=== PATIENT | male | born 1935 | race Caucasian/White ===

== ENCOUNTER → 2016-02-12 | Outpatient (CLI) | payer BC ==
[~2016-02-12] MED LIST: ALFU10TA30 PO; APOA20CA PO; ASCO500T16 PO; ASPEC81 PO; ASPI81TA28 PO; ATOR-24 PO; CRAN1CAP14 PO; DICL1GEL28 TOP; EPP3/2 IM; FENO145T26 PO; FINA5TAB PO; FISHOIL PO; LPT40 PO; LSN25 PO; NTRGSL/4 UT; NTRSLP4 SL; OMG3 PO; SACC250C11 PO; URC10 PO
== END | disposition home or self-care (01) ==
LOC: C.LAB 13:47
PROVIDERS: ATTEND Urology
DX: N40.1 Benign prostatic hyperplasia with lower urinary tract symptoms (principal); Z87.442 Personal history of urinary calculi

== ENCOUNTER → 2016-04-22 | Outpatient (CLI) | payer BC ==
[2016-04-22 16:51] LABS: BASO % 0.6 %; BASO ABS # 0.04 K/uL (0-0.2); COMPLETE YES; HEMATOCRIT 42.7 % (42-52); IG% 0.4 %; LYMPH % 24.6 %; LYMPH ABS # 1.65 K/uL (1.2-3.4); MEAN CELL VOLUME 87.3 fL (80-100); MEAN CORPUSCULAR HGB CONC 33.3 g/dl (32-36); MEAN PLATELET VOLUME 10.3 fL (7.4-10.4); MONO % 12.4 %; PLATELET COUNT 231 K/uL (130-400); RED BLOOD COUNT 4.89 M/uL (4.7-6.1); WHITE BLOOD COUNT 6.71 K/uL (4.8-10.8)
[2016-04-22 16:57] LABS: ALT/SGPT 23 U/L (12-78); AST/SGOT 15 U/L (15-37); BLOOD UREA NITROGEN 20 mg/dl (7-18); BUN/CREATININE RATIO 15.5 (10-20); CALCIUM 8.9 mg/dl (8.5-10.1); CARBON DIOXIDE 25 mmol/L (21-32); CHLORIDE 113 mmol/L (98-107); GLUCOSE 100 mg/dl (70-99); POTASSIUM 4.5 mmol/L (3.5-5.1); SODIUM 145 mmol/L (136-145)
[2016-04-22 17:00] LABS: ALKALINE PHOSPHATASE 63 U/L (45-117); CHOLESTEROL 148 mg/dl (0-200); CHOLESTEROL/HDL RATIO 3.4; HDL CHOLESTEROL 44 mg/dl; LDL CHOLESTEROL CALCULATED 76 mg/dl; TRIGLYCERIDES 139 mg/dl (0-150); VERY LOW DENSITY LIPOPROT CALC 28 mg/dl
[2016-04-23 05:58] LABS: ESTIMATED AVERAGE GLUCOSE 123 mg/dl; HA1C FLAG Normal (Normal)
== END | disposition home or self-care (01) ==
LOC: C.LABBFT 11:18
PROVIDERS: ATTEND Internal Medicine
DX: D64.9 Anemia, unspecified (principal); I25.10 Atherosclerotic heart disease of native coronary artery without angina pectoris; R73.01 Impaired fasting glucose

== ENCOUNTER 2016-05-09 19:25 | Observation (INO) | payer BC ==
[~2016-05-09] VITALS: Ht 177.8 cm; Wt 74.4 kg
[~2016-05-09 19:25] MED LIST changes: +ALFU10TA2 PO; -ALFU10TA30 PO; -APOA20CA PO; -ASPI81TA28 PO; -ATOR-24 PO; -CRAN1CAP14 PO; -EPP3/2 IM; -NTRGSL/4 UT; -OMG3 PO; -SACC250C11 PO; -URC10 PO
[2016-05-09] MEDS ORDERED: SODIUM CHLORIDE 0.9% 1000ML 1,000 ML IV STA (19:28)
[2016-05-09] MEDS ORDERED: NITROGLYCERIN OINT 2% 1GM PACKET EXT ONE (19:45)
[2016-05-09 19:53] LABS: BASO % 0.6 %; BASO ABS # 0.04 K/uL (0-0.2); COMPLETE YES; EOS % 3.8 %; IG% 0.3 %; LYMPH % 27.8 %; LYMPH ABS # 1.77 K/uL (1.2-3.4); MEAN CELL VOLUME 89.2 fL (80-100); MEAN CORPUSCULAR HEMOGLOBIN 29.8 pg (25-34); MEAN CORPUSCULAR HGB CONC 33.4 g/dl (32-36); MEAN PLATELET VOLUME 10.2 fL (7.4-10.4); MONO % 11.9 %; NEUT % 55.6 %; PLATELET COUNT 213 K/uL (130-400); RED BLOOD COUNT 4.26 M/uL (4.7-6.1); WHITE BLOOD COUNT 6.36 K/uL (4.8-10.8)
--- NOTE | 2016-05-09 19:57 | DIAGNOSTIC IMAGING REPORT ---
CHEST ONE VIEW PORTABLE CLINICAL HISTORY: Weakness. Chest pain. COMPARISON STUDY: Chest radiograph November 18, 2015. FINDINGS: There are are median sternotomy wires. There is no pneumothorax or pleural effusion. Mild cardiomegaly is unchanged. There is mild bibasilar opacity. There is no lobar consolidation. There is pulmonary vascular congestion with possible mild pulmonary edema. IMPRESSION: 1. Pulmonary vascular congestion with possible mild pulmonary edema. 2. Bibasilar opacities which favor atelectasis. Electronically signed by: Fred Vazquez M.D. 05/09/2016 7:56 PM Dictated Date/Time: 05/09/2016 7:55 PM
[2016-05-09 20:03] LABS: PROTHROMBIN TIME (PATIENT) 11.2 SECONDS (9.0-12.0)
[2016-05-09 20:21] LABS: ALT/SGPT 20 U/L (12-78); BLOOD UREA NITROGEN 18 mg/dl (7-18); CALCIUM 8.4 mg/dl (8.5-10.1); CARBON DIOXIDE 23 mmol/L (21-32); CHLORIDE 110 mmol/L (98-107); GLUCOSE 96 mg/dl (70-99); MAGNESIUM 2.1 mg/dl (1.8-2.4); POTASSIUM 4.2 mmol/L (3.5-5.1); SODIUM 143 mmol/L (136-145)
[2016-05-09 20:31] LABS: ALKALINE PHOSPHATASE 62 U/L (45-117); AST/SGOT 18 U/L (15-37); CKMB/CK RATIO 1.8 (0-3.0)
[2016-05-09 21:01] LABS: URINE APPEARANCE CLOUDY (CLEAR); URINE BILIRUBIN NEG (NEG); URINE COLOR YELLOW; URINE NITRITE NEG (NEG); URINE PH 7.5 (4.5-7.5); URINE SPECIFIC GRAVITY 1.018 (1.000-1.030); UROBILINOGEN NEG (NEG)
[2016-05-09 21:02] LABS: MANUAL MICROSCOPIC REQUIRED? NO; REVIEW REQ? NO
[2016-05-09] MEDS ORDERED: OMG3 PO (21:11)
[2016-05-09] MEDS ORDERED: URC10 PO (21:16)
[2016-05-09] MEDS ORDERED: ASPI81TA28 PO (21:16)
[2016-05-09] MEDS ORDERED: CRAN1CAP14 PO (21:16)
[2016-05-09] MEDS ORDERED: ATOR-24 PO (21:16)
[2016-05-09] MEDS ORDERED: NTRGSL/4 UT (21:16)
[2016-05-09] MEDS ORDERED: EPP3/2 IM (21:16)
[2016-05-09] MEDS ORDERED: LSN25 PO (21:16)
[2016-05-09] MEDS ORDERED: ACETAMINOPHEN 325 MG TAB PO PRN (23:00)
[2016-05-09] MEDS ORDERED: NITROGLYCERIN 0.4 MG SL PER TAB CHARGE SL PRN (23:00)
[2016-05-09] MEDS ORDERED: ZOLPIDEM TARTRATE 5 MG TAB PO PRN (23:00)
[2016-05-09] MEDS ORDERED: ONDANSETRON INJ 2 MG/ML 2 ML VIAL IV PRN (23:00)
[2016-05-09] MEDS ORDERED: IV FLUIDS COMPLETED PRN (23:15)
[2016-05-09 23:40] VITALS: BP 128/66; PULSE 60; TEMP 36.8; O2SAT 96; Ht 177.8 cm; Wt 74.4 kg
--- NOTE | 2016-05-10 00:15 | EMERGENCY ROOM VISIT NOTE ---
History Report prepared by Rosemarie: Sonia Cadena Under the Supervision of: Dr. Martin Hinds M.D. First contact with patient: 19:27 Chief Complaint: CHEST PAIN Stated Complaint: CHEST PAIN History of Present Illness The patient is a 80 year old male who presents to the Emergency Room with complaints of resolved chest pain that started earlier today. The pain was relieved with nitro and only lasted a couple minutes. He then developed nausea. The patient decided to go into the [facility] clinic to be evaluated because he has a history of a bypass. At the clinic they did a 12 lead EKG, but did not have any prior ones for comparison and possible ischemic changes were present, so they recommended that he come into the ED for further evaluation. Pt denies LOC, headache, fevers, chills, diaphoresis, visual changes, neck pain , breathing difficulties, vomiting, abdominal pain, back pain, melena, hematochezia, urinary symptoms, numbness, weakness, lymphadenopathy, rash, or other complaints. Source of History: patient Onset: earlier today Position: chest Timing: resolved Modifying Factors (Relieving): other (nitro) Associated Symptoms: + nausea Review of Systems See HPI for pertinent positives and negatives. A total of ten systems were reviewed and were otherwise negative. Past Medical & Surgical Medical Problems: (1) Myocardial infarction (2) NSTEMI (non-ST elevated myocardial infarction) (3) NSTEMI, initial episode of care Surgical Problems: (1) S/P CABG (coronary artery bypass graft) Family History No pertinent family history Social History Smoking Status: Never Smoker Alcohol Use: none Drug Use: none Marital Status: Housing Status: lives with significant other Occupation Status: retired Current/Historical Medications Scheduled Alfuzosin Hcl (Uroxatral), 10 MG PO QAM Ascorbic Acid (Ascorbic Acid), 500 MG PO QAM Aspirin (Aspirin Ec), 81 MG PO QAM Atorvastatin (Lipitor), 40 MG PO QAM Cranberry-Vitamin C-Vitamin E (Cranberry Plus Vitamin C), 2 CAP PO QAM Fenofibrate (Tricor), 145 MG PO QAM Finasteride (Proscar), 5 MG PO QAM Fish Oil (Fish Oil), 1 GM PO QAM Lisinopril (Lisinopril), 2.5 MG PO QAM Potassium Citrate (Potassium Citrate), 10 MEQ PO TID Scheduled PRN Epinephrine (Epipen), 0.3 MG IM UD PRN for ALLERGIC REACTION Nitroglycerin (Nitrostat), 0.4 MG UT PRN PRN for Chest Pain Allergies Coded Allergies: BEE STING (Verified Allergy, Severe, ANAPHYLAXIS, 05/09/16) HAS EPIPEN FOR IF NEEDED. Physical Exam Vital Signs Date Time Temp Pulse Resp B/P Pulse Ox O2 Delivery O2 Flow Rate FiO2 05/09/16 23:25 49 14 136/72 96 05/09/16 23:07 52 05/09/16 21:45 143/80 05/09/16 21:43 58 20 94 05/09/16 21:30 134/82 05/09/16 21:15 151/88 05/09/16 21:13 56 17 96 05/09/16 21:00 148/77 05/09/16 20:38 142/82 05/09/16 20:25 55 16 94 05/09/16 20:16 121/91 05/09/16 20:02 157/71 05/09/16 19:57 151/84 05/09/16 19:55 56 21 97 05/09/16 19:37 55 05/09/16 19:32 139/78 05/09/16 19:29 96 Room Air 05/09/16 19:29 36.4 56 14 139/78 96 Room Air 05/09/16 19:29 96 Room Air 05/09/16 19:25 96 Room Air Physical Exam GENERAL: Awake, alert, well-appearing, in no distress HENT: Normocephalic, atraumatic. Oropharynx unremarkable. EYES: Normal conjunctiva. Sclera non-icteric. NECK: Supple. No nuchal rigidity. FROM. No JVD. RESPIRATORY: Clear to auscultation. CARDIAC: Regular rate, normal rhythm. Extremities warm and well perfused. Pulses equal. ABDOMEN: Soft, non-distended. No tenderness to palpation. No rebound or guarding. No masses. RECTAL: Deferred. MUSCULOSKELETAL: Chest examination reveals no tenderness. The back is symmetrical on inspection without obvious abnormality. There is no CVA tenderness to palpation. No joint edema. LOWER EXTREMITIES: Calves are equal size bilaterally and non-tender. 1+ edema. No discoloration. NEURO: Normal sensorium. No sensory or motor deficits noted. SKIN: No rash or jaundice noted. Medical Decision & Procedures ER Provider Diagnostic Interpretation: X-ray: Per my interpretation, radiologist review. CHEST ONE VIEW PORTABLE IMPRESSION: 1. Pulmonary vascular congestion with possible mild pulmonary edema. 2. Bibasilar opacities which favor atelectasis. Electronically signed by: Fred Vazquez M.D. 05/09/2016 7:56 PM Dictated Date/Time: 05/09/2016 7:55 PM Laboratory Results 05/09/16 19:03 Red Blood Count 4.26, Mean Corpuscular Volume 89.2, Mean Corpuscular Hemoglobin 29.8, Mean Corpuscular Hemoglobin Concent 33.4, Mean Platelet Volume 10.2, Neutrophils (%) (Auto) 55.6, Lymphocytes (%) (Auto) 27.8, Monocytes (%) (Auto) 11.9, Eosinophils (%) (Auto) 3.8, Basophils (%) (Auto) 0.6, Neutrophils # (Auto ) 3.53, Lymphocytes # (Auto) 1.77, Monocytes # (Auto) 0.76, Eosinophils # (Auto ) 0.24, Basophils # (Auto) 0.04 05/09/16 19:03 Test 05/09/16 19:03 05/09/16 20:40 05/09/16 23:18 White Blood Count 6.36 K/uL (4.8-10.8) Red Blood Count 4.26 M/uL (4.7-6.1) Hemoglobin 12.7 g/dL (14.0-18.0) Hematocrit 38.0 % (42-52) Mean Corpuscular Volume 89.2 fL (80-100) Mean Corpuscular Hemoglobin 29.8 pg (25-34) Mean Corpuscular Hemoglobin Concent 33.4 g/dl (32-36) Platelet Count 213 K/uL (130-400) Mean Platelet Volume 10.2 fL (7.4-10.4) Neutrophils (%) (Auto) 55.6 % Lymphocytes (%) (Auto) 27.8 % Monocytes (%) (Auto) 11.9 % Eosinophils (%) (Auto) 3.8 % Basophils (%) (Auto) 0.6 % Neutrophils # (Auto) 3.53 K/uL (1.4-6.5) Lymphocytes # (Auto) 1.77 K/uL (1.2-3.4) Monocytes # (Auto) 0.76 K/uL (0.11-0.59) Eosinophils # (Auto) 0.24 K/uL (0-0.5) Basophils # (Auto) 0.04 K/uL (0-0.2) RDW Standard Deviation 53.5 fL (36.4-46.3) RDW Coefficient of Variation 16.3 % (11.5-14.5) Immature Granulocyte % (Auto) 0.3 % Immature Granulocyte # (Auto) 0.02 K/uL (0.00-0.02) Prothrombin Time 11.2 SECONDS (9.0-12.0) Prothromb Time International Ratio 1.0 (0.9-1.1) Activated Partial Thromboplast Time 25.2 SECONDS (21.0-31.0) Partial Thromboplastin Ratio 1.0 Anion Gap 10.0 mmol/L (3-11) Est Creatinine Clear Calc Drug Dose 52.3 ml/min Estimated GFR () 65.8 Estimated GFR (Non- 56.8 BUN/Creatinine Ratio 15.0 (10-20) Calcium Level 8.4 mg/dl (8.5-10.1) Magnesium Level 2.1 mg/dl (1.8-2.4) Total Bilirubin 0.3 mg/dl (0.2-1) Direct Bilirubin < 0.1 mg/dl (0-0.2) Aspartate Amino Transf (AST/SGOT) 18 U/L (15-37) Alanine Aminotransferase (ALT/SGPT) 20 U/L (12-78) Alkaline Phosphatase 62 U/L (45-117) Total Protein 6.8 gm/dl (6.4-8.2) Albumin 3.3 gm/dl (3.4-5.0) Thyroid Stimulating Hormone (TSH) 2.680 uIu/ml (0.300-4.500) Urine Color YELLOW Urine Appearance CLOUDY (CLEAR) Urine pH 7.5 (4.5-7.5) Urine Specific [place] 1.018 (1.000-1.030) Urine Protein NEG (NEG) Urine Glucose (UA) NEG (NEG) Urine Ketones NEG (NEG) Urine Occult Blood NEG (NEG) Urine Nitrite NEG (NEG) Urine Bilirubin NEG (NEG) Urine Urobilinogen NEG (NEG) Urine Leukocyte Esterase NEG (NEG) Urine WBC (Auto) 0 /hpf (0-5) Urine RBC (Auto) 0-4 /hpf (0-4) Urine Hyaline Casts (Auto) 0 /lpf (0-5) Urine Epithelial Cells (Auto) 5-10 /lpf (0-5) Urine Bacteria (Auto) NEG (NEG) Total Creatine Kinase 81 U/L (39-308) Creatine Kinase MB 1.6 ng/ml (0.5-3.6) Creatine Kinase MB Ratio 2.0 (0-3.0) Troponin I < 0.015 ng/ml (0-0.045) Laboratory results reviewed by me Medications Administered Medications (Trade) Dose Ordered Sig/Fátima Route Start Time Stop Time Status Last Admin Dose Admin Sodium Chloride (Nss 1000ml) 1,000 ml @ 125 mls/hr Q8H STAT IV 05/09/16 19:28 05/10/16 03:27 05/09/16 19:59 125 MLS/HR Nitroglycerin (Nitroglycerin 2% Oint) 0.5 inch NOW ONCE EXT 05/09/16 19:45 05/09/16 19:46 DC 05/09/16 19:58 0.5 INCH ECG Indication: chest pain Rate (beats per minute): 55 Rhythm: sinus bradycardia Findings: T-wave inversion (Anterior, Lateral), other (left anterior fasicular block) Comparison ECG Date: 11/19/2015 Change: T-wave inversions less pronounced When compared to 11/24/2016 ST segments have improved anteriorly, anterolateral T-wave inversions are new ED Course 8: Ordered Sodium Chloride 1000 ml @ 125 mls/hr IV 1932: The patient was evaluated in room B6. A complete history and physical exam was performed. 1944: Ordered Nitroglycerin 0.5 inch EXT 2148: Upon reexamination, the patient was resting comfortably. I discussed the test results and treatment plan with him. The patient will be evaluated for further management. 2211: Discussed the patient's case [place] Dr[place] [facility] [place] The patient will be evaluated for further treatment and disposition. Medical Decision Triage Nursing notes reviewed. The patient's presentation and history were concerning for chest pain. Etiologies such as cardiac ischemia, aortic dissection, pulmonary embolism, pneumonia, pneumothorax, musculoskeletal, infections, gastrointestinal, as well as others were entertained. The patient was evaluated. Clinically he was doing well. He was given gentle saline hydration. I did place was applied. On reassessment he had no additional pain. His CBC, chemistry panel, LFTs, magnesium, troponin, and TSH were unremarkable. Chest x-ray was unremarkable except for some atelectasis and maybe some trace edema. The patient does not have any shortness of breath. Given his symptoms further evaluation and management will be necessary in the hospital. He has a high risk for cardiac chest pain. Consultation was made with internal medicine the patient was evaluated in the Emergency Room for further treatment. The chart was completed utilizing [employer] Speech voice recognition software. Grammatical errors, random word insertions, pronoun errors, and incomplete sentences are an occasional consequence of this system due to software limitations, ambient noise, and hardware issues. Any formal questions or concerns about the content, text, or information contained within the body of this dictation should be directly addressed to the physician for clarification. Consults Time Called: -- Consulting Physician: Dr. Jordy SWENSON Returned Call: [id number] Discussed the patient's case with Dr. Jordy SWENSON. The patient will be evaluated for further treatment and disposition. Impression Primary Impression: Left sided chest pain Scribe Attestation The scribe's documentation has been prepared under my direction and personally reviewed by me in its entirety. I confirm that the note above accurately reflects all work, treatment, procedures, and medical decision making performed by me. Departure Information Dispostion Being Evaluated By Hospitalist Referrals Henrik Banks M.D. (PCP) Patient Instructions My [facility]
[2016-05-10 04:00] VITALS: BP 99/57; PULSE 59; TEMP 36.4; O2SAT 94
--- NOTE | 2016-05-10 04:54 | History and Physical ---
History & Physical Date & Time of Service: May 10, 2016 at 04:42. Date of physical exam was 05/09/2016. Chief Complaint: Chest Pain, S/P Cabg Primary Care Physician: Henrik Banks M.D. History of Present Illness Source: patient The patient is an 80-year-old male who presents to the emergency department with complaint of episode of sharp chest pain with duration of a couple minutes , that was relieved by nitroglycerin earlier in the day prior to arrival. He then developed nausea, and decided to go to the [facility]. He had an EKG performed at that clinic which questioned the possibility of ischemic changes, and was advised to the emergency department for further evaluation. Patient had been diagnosed with a non-STEMI in November 2015 and has undergone a CABG since that time. These are his first symptoms that he's had since his surgery. Past Medical/Surgical History Medical Problems: (1) Myocardial infarction Status: Resolved (2) NSTEMI (non-ST elevated myocardial infarction) Status: Resolved Family History No pertinent family history Social History Smoking Status: Never Smoker Smokeless Tobacco Use: No Alcohol Use: none Drug Use: none Marital Status: Housing status: lives with family Occupational Status: retired Multi-Drug Resistant Organisms History of MDRO: No Allergies Coded Allergies: BEE STING (Verified Allergy, Severe, ANAPHYLAXIS, 05/09/16) HAS EPIPEN FOR IF NEEDED. Home Medications Scheduled Alfuzosin Hcl (Uroxatral), 10 MG PO QAM Ascorbic Acid (Ascorbic Acid), 500 MG PO QAM Aspirin (Aspirin Ec), 81 MG PO QAM Atorvastatin (Lipitor), 40 MG PO QAM Cranberry-Vitamin C-Vitamin E (Cranberry Plus Vitamin C), 2 CAP PO QAM Fenofibrate (Tricor), 145 MG PO QAM Finasteride (Proscar), 5 MG PO QAM Fish Oil (Fish Oil), 1 GM PO QAM Lisinopril (Lisinopril), 2.5 MG PO QAM Potassium Citrate (Potassium Citrate), 10 MEQ PO TID Scheduled PRN Epinephrine (Epipen), 0.3 MG IM UD PRN for ALLERGIC REACTION Nitroglycerin (Nitrostat), 0.4 MG UT PRN PRN for Chest Pain Review of Systems The patient denies palpitations, cough, lower extremity swelling, vision change, hearing change, sore throat, fevers, chills, sweats, weight change, fatigue, vomiting, abdominal pain, pelvic pain, blood in urine or stool, dysuria , urinary frequency or urgency, lightheadedness, dizziness, headache, memory loss, rash, abnormal bruising or bleeding, imbalance, focal or generalized weakness, numbness or tingling in arms or legs, arthralgias or myalgias, back or neck pain, night sweats, or allergy symptoms. The review of systems is otherwise negative other than for that already noted above, and at least 10 systems have been reviewed. Physical Exam Vital Signs Date Time Temp Pulse Resp B/P Pulse Ox O2 Delivery O2 Flow Rate FiO2 05/10/16 04:00 36.4 59 18 99/57 94 Room Air 05/09/16 23:40 36.8 60 18 128/66 96 Room Air 05/09/16 23:25 49 14 136/72 96 05/09/16 23:07 52 05/09/16 21:45 143/80 05/09/16 21:43 58 20 94 05/09/16 21:30 134/82 05/09/16 21:15 151/88 05/09/16 21:13 56 17 96 05/09/16 21:00 148/77 05/09/16 20:38 142/82 05/09/16 20:25 55 16 94 05/09/16 20:16 121/91 05/09/16 20:02 157/71 05/09/16 19:57 151/84 05/09/16 19:55 56 21 97 05/09/16 19:37 55 05/09/16 19:32 139/78 05/09/16 19:29 96 Room Air 05/09/16 19:29 36.4 56 14 139/78 96 Room Air 05/09/16 19:29 96 Room Air 05/09/16 19:25 96 Room Air The patient is awake, well-developed and adequately nourished, alert and oriented 3, normocephalic and atraumatic, lying in bed and in no acute distress. HEENT--PERRL, EOMI, mucous membranes and oropharynx normal. Neck--supple, no JVD or bruits, thyroid normal, trachea midline, no adenopathy. Heart--normal S1 and S2, no extra beats, no murmurs, rubs or gallops. Lungs--clear bilaterally with good air movement, no respiratory distress, no accessory muscle use. Abdomen--normal bowel sounds and soft, nontender and nondistended, no hernias or masses, no organomegaly. Extremities--no cyanosis, clubbing or edema. There are good distal pulses b/l. Dermatologic--normal skin turgor, normal color, warm and dry, no abnormal lymph nodes, no rash. Neurologic--cranial nerves II through XII grossly intact, motor and sensory examination normal. Rheumatologic--normal range of motion, nontender, muscles and joints. Psychiatric--normal affect. Diagnostics Laboratory Results Results Past 24 Hours Test 05/09/16 19:03 05/09/16 20:40 05/09/16 23:18 Range/Units White Blood Count 6.36 4.8-10.8 K/uL Red Blood Count 4.26 4.7-6.1 M/uL Hemoglobin 12.7 14.0-18.0 g/dL Hematocrit 38.0 42-52 % Mean Corpuscular Volume 89.2 80-100 fL Mean Corpuscular Hemoglobin 29.8 25-34 pg Mean Corpuscular Hemoglobin Concent 33.4 32-36 g/dl Platelet Count 213 130-400 K/uL Mean Platelet Volume 10.2 7.4-10.4 fL Neutrophils (%) (Auto) 55.6 % Lymphocytes (%) (Auto) 27.8 % Monocytes (%) (Auto) 11.9 % Eosinophils (%) (Auto) 3.8 % Basophils (%) (Auto) 0.6 % Neutrophils # (Auto) 3.53 1.4-6.5 K/uL Lymphocytes # (Auto) 1.77 1.2-3.4 K/uL Monocytes # (Auto) 0.76 0.11-0.59 K/uL Eosinophils # (Auto) 0.24 0-0.5 K/uL Basophils # (Auto) 0.04 0-0.2 K/uL RDW Standard Deviation 53.5 36.4-46.3 fL RDW Coefficient of Variation 16.3 11.5-14.5 % Immature Granulocyte % (Auto) 0.3 % Immature Granulocyte # (Auto) 0.02 0.00-0.02 K/uL Prothrombin Time 11.2 9.0-12.0 SECONDS Prothromb Time International Ratio 1.0 0.9-1.1 Activated Partial Thromboplast Time 25.2 21.0-31.0 SECONDS Partial Thromboplastin Ratio 1.0 Sodium Level 143 136-145 mmol/L Potassium Level 4.2 3.5-5.1 mmol/L Chloride Level 110 98-107 mmol/L Carbon Dioxide Level 23 21-32 mmol/L Anion Gap 10.0 3-11 mmol/L Blood Urea Nitrogen 18 7-18 mg/dl Creatinine 1.20 0.60-1.40 mg/dl Est Creatinine Clear Calc Drug Dose 52.3 ml/min Estimated GFR () 65.8 Estimated GFR (Non- 56.8 BUN/Creatinine Ratio 15.0 10-20 Random Glucose 96 70-99 mg/dl Calcium Level 8.4 8.5-10.1 mg/dl Magnesium Level 2.1 1.8-2.4 mg/dl Total Bilirubin 0.3 0.2-1 mg/dl Direct Bilirubin < 0.1 0-0.2 mg/dl Aspartate Amino Transf (AST/SGOT) 18 15-37 U/L Alanine Aminotransferase (ALT/SGPT) 20 12-78 U/L Alkaline Phosphatase 62 45-117 U/L Total Creatine Kinase 97 81 39-308 U/L Creatine Kinase MB 1.7 1.6 0.5-3.6 ng/ml Creatine Kinase MB Ratio 1.8 2.0 0-3.0 Troponin I < 0.015 < 0.015 0-0.045 ng/ml Total Protein 6.8 6.4-8.2 gm/dl Albumin 3.3 3.4-5.0 gm/dl Thyroid Stimulating Hormone (TSH) 2.680 0.300-4.500 uIu/ml Urine Color YELLOW Urine Appearance CLOUDY CLEAR Urine pH 7.5 4.5-7.5 Urine Specific [place] 1.018 1.000-1.030 Urine Protein NEG NEG Urine Glucose (UA) NEG NEG Urine Ketones NEG NEG Urine Occult Blood NEG NEG Urine Nitrite NEG NEG Urine Bilirubin NEG NEG Urine Urobilinogen NEG NEG Urine Leukocyte Esterase NEG NEG Urine WBC (Auto) 0 0-5 /hpf Urine RBC (Auto) 0-4 0-4 /hpf Urine Hyaline Casts (Auto) 0 0-5 /lpf Urine Epithelial Cells (Auto) 5-10 0-5 /lpf Urine Bacteria (Auto) NEG NEG Diagnostic Radiology Patient Name: FLACO ROBBINS Unit Number: [id number] Dictated: 05/09/161954 Transcribed: 05/09/161954 JA Printed Date/Time: [~ rep prt dt]/[~ rep prt tm] [~ rep ct labl] - [~ rep ct ivnm] [facility] Radiology Department [place] [id number] Dictated: 05/09/161954 Transcribed: 05/09/161954 JA Printed Date/Time: [~ rep prt dt]/[~ rep prt tm] [~ rep ct labl] - [~ rep ct ivnm] [~ rep ct add3]] CHEST ONE VIEW PORTABLE CLINICAL HISTORY: Weakness. Chest pain. COMPARISON STUDY: Chest radiograph November 18, 2015. FINDINGS: There are are median sternotomy wires. There is no pneumothorax or pleural effusion. Mild cardiomegaly is unchanged. There is mild bibasilar opacity. There is no lobar consolidation. There is pulmonary vascular congestion with possible mild pulmonary edema. IMPRESSION: 1. Pulmonary vascular congestion with possible mild pulmonary edema. 2. Bibasilar opacities which favor atelectasis. Electronically signed by: Fred Vazquez M.D. 05/09/2016 7:56 PM Dictated Date/Time: 05/09/2016 7:55 PM The status of this report is Signed. Draft = Not yet reviewed or approved by Radiologist. Signed = Reviewed and approved by Radiologist. <AttendingPhy></AttendingPhy> <FamilyPhy>Henrik Banks M.D.</FamilyPhy> < PrimaryPhy>Henrik Banks M.D.</PrimaryPhy> <UnitNumber>[id number]</UnitNumber > <VisitNumber>[id number]</VisitNumber> <PatientName>FLACO ROBBINS</ PatientName> <DateOfBirth>1935</DateOfBirth> <Location>C.EDB</Location> < ServiceDate>05/09/16</ServiceDate> <MNE>ESINDI</MNE> <OrderingPhy>Martin Hinds MD</OrderingPhy> <OrderingPhyMNE>f rep ord dr tyson</OrderingPhyMNE> < DictatingPhyMNE>f rep dict dr tyson</DictatingPhyMNE> <CCListMNE>f rep ct henriettae</ CCListMNE> <AdmittingPhyMNE>f pt admit dr tyson</AdmittingPhyMNE> <AttendingPhyMNE >f pt attend dr tyson</AttendingPhyMNE> <ConsultingPhyMNE>f pt consult dr tyson</ConsultingPhyMNE> <FamilyPhyMNE>f pt fam dr tyson</FamilyPhyMNE> <OtherPhyMNE>f pt other dr tyson</OtherPhyMNE> < PrimaryPhyMNE>f pt prim care dr tyson</PrimaryPhyMNE> <ReferringPhyMNE>f pt referring dr tyson</ReferringPhyMNE> EKG EKG shows sinus bradycardia at 55 bpm, left axis deviation, possible old inferior wall NE, possible anterior NE, improved T-wave depressions compared to 11/19/2015 Impression Assessment and Plan CAD/hypertension/status post CABG/resolved episode of precordial chest pain with use of nitroglycerin--the patient will be admitted to the telemetry unit for serial cardiac enzymes, cardiac rhythm monitoring and a 2-D echocardiogram with Dopplers. Continue enteric-coated aspirin 81 mg by mouth every morning, lisinopril 2.5 mg by mouth every morning. We'll consult his senior sales assistant Dr. Ny. Hypercholesterolemia--continue atorvastatin 40 mg by mouth every morning, fenofibrate 145 mg by mouth every morning and fish oil 1 g by mouth every morning. BPH--continue Uroxatral 10 mg by mouth every morning and finasteride 5 mg by mouth every morning, and potassium citrate 10 mEq by mouth 3 times a day. Level of Care Telemetry Advanced Directives Existing Advance Directive: No Existing Living Will: No Existing Power of Cellar Packer: No Resuscitation Status FULL RESUSCITATION VTE Prophylaxis VTE Risk Assessment Done? Y/N: Yes Risk Level: Moderate Given or contraindicated: SCD's
[2016-05-10 07:15] LABS: BASO % 0.7 %; BASO ABS # 0.04 K/uL (0-0.2); COMPLETE YES; EOS % 4.1 %; HEMATOCRIT 36.6 % (42-52); IG% 0.3 %; LYMPH % 29.4 %; MEAN CELL VOLUME 88.6 fL (80-100); MEAN CORPUSCULAR HEMOGLOBIN 29.5 pg (25-34); MEAN CORPUSCULAR HGB CONC 33.3 g/dl (32-36); MEAN PLATELET VOLUME 9.7 fL (7.4-10.4); MONO % 9.8 %; NEUT % 55.7 %; PLATELET COUNT 189 K/uL (130-400); RED BLOOD COUNT 4.13 M/uL (4.7-6.1); WHITE BLOOD COUNT 6.13 K/uL (4.8-10.8)
[2016-05-10 07:51] LABS: BLOOD UREA NITROGEN 15 mg/dl (7-18); BUN/CREATININE RATIO 13.9 (10-20); CALCIUM 8.1 mg/dl (8.5-10.1); CARBON DIOXIDE 24 mmol/L (21-32); CHLORIDE 112 mmol/L (98-107); GLUCOSE 98 mg/dl (70-99); MAGNESIUM 2.1 mg/dl (1.8-2.4); POTASSIUM 3.8 mmol/L (3.5-5.1); SODIUM 144 mmol/L (136-145)
[2016-05-10 07:56] LABS: CKMB/CK RATIO 1.9 (0-3.0)
[2016-05-10 08:00] VITALS: BP 101/53; PULSE 55; TEMP 36.5; O2SAT 96
[2016-05-10] MEDS ORDERED: ASCORBIC ACID 500 MG TAB PO SCH (09:00)
[2016-05-10] MEDS ORDERED: ATORVASTATIN 20 MG TAB PO SCH (09:00)
[2016-05-10] MEDS ORDERED: OMEGA-3 (PURIFIED FISH OIL) 1 GM CAP PO SCH (09:00)
[2016-05-10] MEDS ORDERED: FENOFIBRATE 145 MG TAB PO SCH (09:00)
[2016-05-10] MEDS ORDERED: FINASTERIDE 5 MG TAB PO SCH (09:00)
[2016-05-10] MEDS ORDERED: ASPIRIN 81 MG ECTAB PO SCH (09:00)
[2016-05-10] MEDS ORDERED: ALFUZosin TAB 10 MG TAB PO SCH (09:00)
[2016-05-10] MEDS ORDERED: POTASSIUM CITRATE 10 MEQ TAB PO SCH (09:00)
[2016-05-10] MEDS ORDERED: LISINOPRIL 2.5 MG TAB PO SCH (09:00)
--- NOTE | 2016-05-10 10:25 | Discharge Instructions ---
Discharge Instructions Date of Service May 10, 2016. Admission Reason for Admission: Chest Pain, S/P Cabg Discharge Discharge Diagnosis / Problem: Chest Pain Discharge Goals Goal(s): Decrease discomfort, Improve function, Increase independence Activity Recommendations Activity Limitations: as noted below Lifting Limitations: gradually increase as tolerated Exercise/Sports Limitations: as tolerated May Resume Sexual Activity: when tolerated Shower/Bathe: no limitations . Instructions / Follow-Up Instructions / Follow-Up Chest Pain: - You have remained chest pain free since arrival. Cardiac enzymes (shows heart damage) were obtained and are negative and do not support a new heart issue. - EKG (shows electrical activity of your heart) was obtained and shows similar findings from previous ones due to your cardiac history and no new findings appreciated. IF YOU DEVELOP CHEST PAIN WITH ACTIVITY- DO THE FOLLOWING - Take Nitroglycerin tablet which can help resolve the pain and you may repeat if the pain does not go away in 5 minutes. You may take up to three tablets spaced 5 minutes apart if necessary. - If pain does not resolved CALL 911 IMMEDIATELY or if the chest pain is unusual for you or occurring at rest CALL 911 IMMEDIATELY. Follow-Up: - Recommend following-up with your family doctor and founder and chief executive officer in the next 7- 10 days. Current Hospital Diet Patient's current hospital diet: AHA Diet (Heart Healthy) Discharge Diet Recommended Diet: AHA Diet (Heart Healthy) Pending Studies Studies pending at discharge: no Laboratory Results Hemoglobin A1c Test 04/22/16 11:27 Range/Units Estimated Average Glucose 123 mg/dl Hemoglobin A1c 5.9 H 4.5-5.6 % Lipid Panel Test 04/22/16 11:27 Range/Units Triglycerides Level 139 0-150 mg/dl Cholesterol Level 148 0-200 mg/dl HDL Cholesterol 44 mg/dl Cholesterol/HDL Ratio 3.4 LDL Cholesterol, Calculated 76 mg/dl Medical Emergencies . Who to Call and When: Medical Emergencies: If at any time you feel your situation is an emergency, please call 911 immediately. . Non-Emergent Contact Non-Emergency issues call your: Primary Care Provider Call Non-Emergent contact if: you have a fever, your pain is concerning you, you have any medication questions . . "Provider Documentation" section prepared by Bridget Muir. VTE Core Measure Inpt VTE Proph given/why not?: SCD's
[2016-05-10 11:14] VITALS: BP 101/53; PULSE 55; TEMP 36.5; O2SAT 96
--- NOTE | 2016-05-10 12:49 | CARDIOLOGY CONSULTATION REPORT ---
DATE OF CONSULTATION: 05/10/2016 HISTORY OF PRESENT ILLNESS: Mr. 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 He describes the pain that brought him into the hospital this time as a "sharp chest pain", which occurred after working in his yard and home throughout the day yesterday. He was actually sitting in a chair, and walked very quickly up a flight of 13 steps when he developed a sharp chest pain, which was without associated symptoms and lasted less than 5 minutes. He did try a nitroglycerin tablet sublingually, and this may have helped his discomfort. He sought treatment in his PCP office in [facility]. They were concerned because of his chronically abnormal EKG and referred him to the Emergency Room. Please note that his cardiac history dates back to 07/11/2014 when he complained of left shoulder pain (described as a dull ache) associated with diaphoresis and dyspnea. He was diagnosed with an NSTEMI at that time. CARDIAC CATHETERIZATION July 2014 revealed the followin. LMCA - No significant for disease. 2. LAD - 70% eccentric proximal stenosis, 70% latter proximal stenosis, diffuse 10%-30% stenosis in the mid LAD. 3. D1 - 100% occlusion in the ostial/proximal vessel with left to left collaterals to distal D1. 4. RI - 10%-30% proximal/mid vessel disease diffusely. 5. LCX 10%-20% proximal stenosis, 30% mid vessel stenosis. 6. OM1 - 50%-70% osteal and proximal stenosis. 7. Left ZULMA - No significant disease. 8. RCA - 30% proximal stenosis, 10-20% mid vessel stenosis, 30% distal stenosis followed by 10-40% diffuse disease, distally. 9. Right ZULMA - No significant disease. 10. Right PDA - No significant disease. 11. LV gram - LVEF 60%. 12. No interventions were undertaken as his GA was completed and he had a preserved LVEF. The patient had recurrent angina pectoris secondary to a second NSTEMI on 11/18/2015. Repeat cardiac catheterization showed progressive stenosis of the proximal LAD, severe OM2 stenosis, and progression of RCA disease. Therefore, the patient was referred to [facility] where he underwent CABG x3 vessels on 11/23/2015 including WILL to LAD, SVG to OM, and SVG to PDA. The surgery was complicated by postoperative blood loss anemia, stress hyperglycemia, and hypotension. The patient offers no complaints at the present time. He is currently being seen in room #206. Thus far, his cardiac enzymes are negative x 3, and telemetry monitoring is within normal limits. No significant ectopy. No dysrhythmias. MEDICATIONS: 1. Alfuzosin 10 mg q.a.m. 2. Vitamin C 500 mg daily. 3. Aspirin 81 mg daily. 4. Lipitor 40 mg daily. 5. TriCor 145 mg each morning. 6. Proscar 5 mg q.a.m. 7. Fish oil capsules 1 gram each morning. 8. Lisinopril 2.5 mg daily. 9. Urocit K 10 mEq b.i.d. 10. Zofran 4 mg IV q. 6 hours p.r.n. for nausea. 11. Tylenol p.r.n. 12. Ambien p.r.n. 13. Sublingual nitroglycerin p.r.n. ALLERGIES: 1. NKDA. 2. Intolerant of beta blockers due to bradycardia. PAST MEDICAL HISTORY: 1. Cardiac history as mentioned above. 2. Dyslipidemia. 3. BPH. 4. History of recurrent nephrolithiasis. 5. History of actinic keratosis. 6. History of anemia. 7. Depression. 8. Left third finger amputation. 9. Question history of hypertension. 10. Impaired fasting glucose. 11. Male erectile dysfunction. 12. Status post CABG x3 vessels. 13. History of bee sting-induced anaphylaxis. SOCIAL HISTORY: The patient is a and lives with his . He is retired from work. 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 He is a former smoker, quit 30 years ago after [id number]-fdeo history. He does drink alcohol socially. FAMILY HISTORY: Mother with a history of lung cancer. Father of motor vehicle accident. PHYSICAL EXAMINATION: VITAL SIGNS: Temperature is 36.5 degrees Celsius, pulse is 55 and regular, respiratory rate is 14 and unlabored, blood pressure is 101/53 and SpO2 is 96% on room air. GENERAL: The patient is in no acute distress. HEENT: Head is atraumatic, normocephalic. EOMs intact. Sclerae are anicteric. Face is symmetric. No perioral cyanosis. Mucous membranes moist. NECK: Without thyromegaly, adenopathy, or JVD. Carotid upstrokes are +2 bilaterally without obvious bruits. CHEST AND LUNGS: Clear to auscultation bilaterally throughout all lung awtood. No wheezes, rales, or rhonchi. CARDIOVASCULAR: S1 and S2 are regular without murmur, gallop, or rub. PMI is nondisplaced. No lifts, heaves, or thrills. No abdominal aortic or renal bruits. ABDOMEN: Bowel sounds are present. No masses, organomegaly or tenderness. EXTREMITIES: Without clubbing, cyanosis, or edema. Left third finger is absent. NEUROLOGIC: The patient is awake, alert and oriented. Pleasant and cooperative. Answers questions appropriately. Speech is clear. Normal movement in all four extremities. Gait pattern is unremarkable. DATA: EKG on admission shows sinus bradycardia at the rate of 55 beats per minute with a left anterior fascicular block, T-wave inversion across the precordial leads, no ST-segment abnormalities. When compared to prior tracing 11/19/2015 T-wave inversions are still present, but ST segments are not as depressed. LABORATORIES: White blood cell count is 6.13. Hemoglobin 12.2 g/dL, hematocrit 36.6%, platelet count is 189,000. Sodium is 144 mmol/L, potassium 3.8 mmol/L, BUN is 15 mg/dL and creatinine 1.10 mg/dL, random glucose 98 mg/dL. Total CKs are 70, 81, and 97 units per liter with respect to CK-MBs of 1.3, 1.6, and 1.7 ng/mL. Troponin I levels are less than 0.015 ng/mL x3. TSH is within normal limits at 2.680 uIU/mL. ASSESSMENT: 1. Atypical Chest Pain, noncardiac origin. 2. Coronary artery disease status post coronary artery bypass grafting x3 vessels 11/23/2015. 3. Negative cardiac enzymes x 3. 4. Chronically abnormal electrocardiogram. 5. His atypical chest pain is very dissimilar to his prior anginal complaints. 6. No signs or symptoms of heart failure. 7. No symptoms suggestive of dysrhythmia. 8. Dyslipidemia, on chronic statin therapy. 9. Diagnosis as mentioned above. PLAN: 1. I have reassured the patient that his chest pain was very atypical and not likely to be cardiac in origin. 2. The patient was advised to walk around the hallways to assess for any symptoms. While I was still in the unit, the patient did about 6 or 7 laps at a relatively quick pace around the hallway without symptoms. 3. No further testing is necessary at this time. 4. Would recommend discharging to home today. 5. Continue on mcc Lipitor 40 mg daily. 6. Continue on mcc Aspirin 81 mg daily. 7. Continue sublingual NTG on an as-needed basis. 8. Continue Fenofibrate 145 mg daily. 9. Continue fish oil capsules. 10. 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 11. Remain off beta blockers due to significant bradycardia. Thank you for asking to see this patient in consultation. If we can be have any further assistance to you, please contact us at [phone]. VIDALD
--- NOTE | 2016-05-10 13:30 | Discharge Summary ---
Discharge Summary Date of Service May 10, 2016. (Bridget Muir PA-C) Discharge Summary Admission Date: May 09, 2016 at 22:56 Discharge Date: May 10, 2016 Discharge Disposition: Home Principal Diagnosis: Chest Pain Problems/Secondary Diagnoses: 1. CAD S/P CABG 2. NSTEMI (November 2015) Procedures: 1. CHEST ONE VIEW PORTABLE CLINICAL HISTORY: Weakness. Chest pain. COMPARISON STUDY: Chest radiograph November 18, 2015. FINDINGS: There are are median sternotomy wires. There is no pneumothorax or pleural effusion. Mild cardiomegaly is unchanged. There is mild bibasilar opacity. There is no lobar consolidation. There is pulmonary vascular congestion with possible mild pulmonary edema. IMPRESSION: 1. Pulmonary vascular congestion with possible mild pulmonary edema. 2. Bibasilar opacities which favor atelectasis. Consultations: 1. Cardiology (Bridget Muir PA-C) Medication Reconciliation Continued Medications: Alfuzosin Hcl (Uroxatral) 10 Mg Tab 10 MG PO QAM, 0 Refills Ascorbic Acid (Ascorbic Acid) 500 Mg Tab 500 MG PO QAM, TAB Aspirin (Aspirin Ec) 81 Mg Tab 81 MG PO QAM Atorvastatin (Lipitor) 40 Mg Tab 40 MG PO QAM, TAB Cranberry-Vitamin C-Vitamin E (Cranberry Plus Vitamin C) 1 Cap Cap 2 CAP PO QAM Epinephrine (Epipen) 0.3 Mg/0.3 Ml Inj 0.3 MG IM UD PRN for ALLERGIC REACTION, BOX Fenofibrate (Tricor) 145 Mg Tab 145 MG PO QAM, TAB Finasteride (Proscar) 5 Mg Tab 5 MG PO QAM, 0 Refills Fish Oil (Fish Oil) 1 Gm Cap 1 GM PO QAM Lisinopril (Lisinopril) 2.5 Mg Tab 2.5 MG PO QAM Nitroglycerin (Nitrostat) 0.4 Mg Tab 0.4 MG UT PRN PRN for Chest Pain, BTL Potassium Citrate (Potassium Citrate) 10 Meq Tab 10 MEQ PO TID Discharge Exam Review of Systems: Constitutional: No chills, No fever Eyes: No worsening of vision ENT: No nasal symptoms, No sore throat, No trouble swallowing Respiratory: No cough, No dyspnea at rest, No dyspnea on exertion Cardiovascular: No chest pain Abdomen: No constipation, No diarrhea, No nausea, No pain, No vomiting Musculoskeletal: No calf pain, No swelling Genitourinary - Male: No dysuria Physical Exam: General Appearance: WD/WN, no apparent distress Eyes: sclerae normal ENT: hearing grossly normal Neck: supple, no JVD, trachea midline Respiratory/Chest: lungs clear, normal breath sounds, no respiratory distress, no accessory muscle use Cardiovascular: regular rate, rhythm, no gallop, no murmur Abdomen / GI: normal bowel sounds, non tender, soft Extremities: no calf tenderness, no pedal edema Neurologic/Psychiatric: alert, oriented x 3 Skin: normal color, warm/dry (Bridget Muir, TEQUILA) Hospital Course ADMISSION: The patient is an 80-year-old male who presents to the emergency department with complaint of episode of sharp chest pain with duration of a couple minutes, that was relieved by nitroglycerin earlier in the day prior to arrival. He then developed nausea, and decided to go to the [facility] clinic. He had an EKG performed at that clinic which questioned the possibility of ischemic changes, and was advised to the emergency department for further evaluation. Patient had been diagnosed with a non-STEMI in November 2015 and has undergone a CABG since that time. These are his first symptoms that he's had since his surgery. HOSPITAL COURSE: Mr. Marie was admitted for a short chest pain that lasted approximately 5 minutes and relieved with nitroglycerin. Patient reports that he was working in his yard during the day. Also notes that he quickly walked up 13 steps when this sharp pain started. He ultimately developed nausea and was seen at a walk-in clinic. EKG performed there significant for T-wave inversions. EKG performed in hospital significant for continuing T waves in V1 through V6, however EKG is very similar appearing to previous ones performed. Patient has had no further complaints of chest pain. Due to his significant cardiac history, cardiology was consulted. Cardiac enzymes trended without abnormality. He was continued on home medications as previously prescribed. Patient is on ASA therapy, ACEI, and statin therapy. Patient is currently off beta padmini therapy due to bradycardia. Offered to set up follow-up appointment , however patient states that his will do this as this will be easier for patient's schedule. Patient is chest pain free, ambulating without difficulty, adequately oxygenating, and with no new complaints. Patient is optimal for discharge home at this time. Total Time Spent: Greater than 30 minutes This includes examination of the patient, discharge planning, medication reconciliation, and communication with other providers. (Bridget Muir, MARC-C) i personally examined pt and verified all campos points w A Wood PAC feeling better really want to go home EKG not different from november, troponins negative chest pain - likely GI, stable for home, cardiology input appreciated discharge as above (Abdoulaye Rodriguez D.Rema.) Discharge Instructions Please refer to the electronic Patient Visit Report (Discharge Instructions) for additional information. (Bridget Muir, PA-C) Additional Copies To Henrik Banks M.D.
--- NOTE | 2016-05-10 14:20 | ECHOCARDIOGRAM REPORT ---
*NOTICE TO RECEIVING REPUBLICAN AGENCY This information is strictly Confidential and protected under [place] law. [place] law prohibits you from making any further disclosure of this information unless further disclosure is expressly permitted by the written consent of the person to whom it pertains or is authorized by law. A general authorization for the release of medical or other information is not sufficient for this purpose. Hospital accepts no responsibility if the information is made available to any other person, INCLUDING THE PATIENT. Interpretation Summary * Name: FLACO ROBBINS Study Date: 05/10/2016 06:59 AM BP: 99/57 mmHg * Patient Location: C.2E\S\E206\S\1 HR: 59 * : 1935 (M/d/yyyy) Gender: Male Height: 71 in * Age: 80 yrs Ethnicity: CA Weight: 173 lb * Ordering Physician: Warren Spence * Referring Physician: Self, Referred * Performed By: Jamal Pearl RCS * * Reason For Study: CHEST PAIN * BSA: 2.0 m2 * -- Conclusions -- * Left ventricular systolic function is normal. * No regional wall motion abnormalities noted. * Ejection Fraction = 60-65%. * There is borderline concentric left ventricular hypertrophy. * There is mild mitral regurgitation. Procedure Details * A complete two-dimensional transthoracic echocardiogram was performed (2D, M-mode, Doppler and color flow Doppler). Left Ventricle * The left ventricle is normal in size. * There is borderline concentric left ventricular hypertrophy. * Ejection Fraction = 60-65%. * Left ventricular systolic function is normal. * No regional wall motion abnormalities noted. Right Ventricle * The right ventricle is grossly normal size. * The right ventricular systolic function is reduced as assessed by tricuspid annular plane systolic excursion (TAPSE) (TAPSE <1.6 cm). Atria * The left atrium is moderately dilated. * The right atrium is mildly dilated. * There is no evidence of atrial septal defect, but resolution does not allow assessment for a patent foramen ovale. Mitral Valve * The mitral valve is normal in structure and function. * There is no mitral valve stenosis. * There is mild mitral regurgitation. Tricuspid Valve * The tricuspid valve is not well visualized, but is grossly normal. * There is no tricuspid stenosis. * Significant tricuspid regurgitation is absent. Aortic Valve * The aortic valve is normal in structure and function. * No hemodynamically significant valvular aortic stenosis. * No aortic regurgitation is present. Pulmonic Valve * The pulmonary valve is not well seen, but the Doppler examination is normal without significant regurgitation or stenosis. Great Vessels * The aortic root is normal size. * Mildly dilated ascending aorta. Pericardium/Pleural * There is no pericardial effusion. MMode 2D Measurements and Calculations IVSd 0.96 cm IVSs 1.2 cm LVIDd 5.0 cm LVIDs 3.7 cm LVPWd 0.92 cm LVPWs 1.2 cm IVS/LVPW 1.0 FS 26.1 % EDV(Teich) 115.9 ml ESV(Teich) 56.8 ml EF(Teich) 51.0 % EDV(cubed) 121.8 ml ESV(cubed) 49.2 ml EF(cubed) 59.6 % % IVS thick 28.5 % % LVPW thick 32.9 % LV mass(C)d 164.9 grams LV mass(C)dI 83.2 grams/m\S\2 LV mass(C)s 150.1 grams LV mass(C)sI 75.7 grams/m\S\2 CO(Teich) 3.0 l/min CI(Teich) 1.5 l/min/m\S\2 SV(Teich) 59.1 ml SI(Teich) 29.8 ml/m\S\2 CO(cubed) 3.7 l/min CI(cubed) 1.9 l/min/m\S\2 SV(cubed) 72.7 ml SI(cubed) 36.6 ml/m\S\2 Ao root diam 3.4 cm Ao root area 9.2 cm\S\2 ACS 1.7 cm LA dimension 4.3 cm LA/Ao 1.2 LVAd ap4 35.5 cm\S\2 LVLd ap4 9.0 cm EDV(MOD-sp4) 117.0 ml LVAs ap4 16.3 cm\S\2 LVLs ap4 6.6 cm ESV(MOD-sp4) 34.0 ml EF(MOD-sp4) 70.9 % LVAd ap2 30.0 cm\S\2 LVLd ap2 8.1 cm EDV(MOD-sp2) 94.0 ml LVAs ap2 19.3 cm\S\2 LVLs ap2 6.5 cm ESV(MOD-sp2) 47.0 ml EF(MOD-sp2) 50.0 % CO(MOD-sp4) 4.2 l/min CI(MOD-sp4) 2.1 l/min/m\S\2 SV(MOD-sp4) 83.0 ml SI(MOD-sp4) 41.9 ml/m\S\2 CO(MOD-sp2) 2.4 l/min CI(MOD-sp2) 1.2 l/min/m\S\2 SV(MOD-sp2) 47.0 ml SI(MOD-sp2) 23.7 ml/m\S\2 Doppler Measurements and Calculations MV E max lucas 80.1 cm/sec MV A max lucas 82.3 cm/sec MV E/A 0.97 MV P1/2t max lucas 80.1 cm/sec MV P1/2t 86.7 msec MVA(P1/2t) 2.5 cm\S\2 MV dec slope 270.8 cm/sec\S\2 MV dec time 0.23 sec Ao V2 max 116.1 cm/sec Ao max PG 5.4 mmHg Ao max PG (full) 1.5 mmHg LV V1 max PG 3.9 mmHg LV V1 max 98.7 cm/sec PA V2 max 93.1 cm/sec PA max PG 3.5 mmHg PI max lucas 166.8 cm/sec PI max PG 11.1 mmHg PI dec slope 102.1 cm/sec\S\2 PI P1/2t 478.3 msec TR max lucas 235.4 cm/sec
[2016-10-28] MEDS ORDERED: SACC250C11 PO (08:45)
[2016-10-28] MEDS ORDERED: APOA20CA PO (08:45)
== END 2016-05-10 12:06 | disposition home or self-care (01) ==
LOC: ENRESERVDT → ENRESERVTM → EDBD 19:25 → C.EDB 19:26 → C.2E 22:56
PROVIDERS: ADMIT Hospitalist; ATTEND Family Medicine
DX: R07.89 Other chest pain (principal); I25.10 Atherosclerotic heart disease of native coronary artery without angina pectoris; I25.2 Old myocardial infarction; E78.00 Pure hypercholesterolemia, unspecified; E78.5 Hyperlipidemia, unspecified; E11.9 Type 2 diabetes mellitus without complications; N40.1 Benign prostatic hyperplasia with lower urinary tract symptoms; Z79.899 Other long term (current) drug therapy; Z79.82 Long term (current) use of aspirin; Z95.1 Presence of aortocoronary bypass graft; Z89.022 Acquired absence of left finger(s); Z87.891 Personal history of nicotine dependence; Z80.1 Family history of malignant neoplasm of trachea, bronchus and lung

== ENCOUNTER → 2016-08-18 | Outpatient (CLI) | payer BC ==
[~2016-08-18] MED LIST changes: -ALFU10TA2 PO; +ALFU10TA30 PO; +APOA20CA PO; -ASPEC81 PO; +ASPI81TA28 PO; +ATOR-24 PO; +CRAN1CAP14 PO; -DICL1GEL28 TOP; +EPP3/2 IM; -FISHOIL PO; -LPT40 PO; +NTRGSL/4 UT; -NTRSLP4 SL; +OMG3 PO; +SACC250C11 PO; +URC10 PO
--- NOTE | 2016-08-18 11:53 | DIAGNOSTIC IMAGING REPORT ---
KUB CLINICAL HISTORY: M20.0,592.0 nephrocalcinosis FINDINGS: 4 mm calcification lateral margin left kidney. No additional evidence for nephrocalcinosis. Calcification left kidney density was present on the prior study but obscured by overlying bowel content. Nonobstructive bowel pattern. COMPARISON STUDY: 01/20/2015 IMPRESSION: 1. 4 mm calcification peripheral aspect mid pole left kidney. 2. This most likely was present on the prior study but partially obscured due to overlying bowel content 3. Nonobstructive bowel pattern 4. Tiny calcification to the right of the L1 transverse process most likely related to bowel content Electronically signed by: Jamir Kirkland M.D. 08/18/2016 11:52 AM Dictated Date/Time: 08/18/2016 11:50 AM
== END | disposition home or self-care (01) ==
LOC: C.LAB 11:26
PROVIDERS: ATTEND Urology
DX: N20.0 Calculus of kidney (principal)

== ENCOUNTER → 2016-09-01 | Outpatient (CLI) | payer BC | END | disposition home or self-care (01) | LOC: C.LAB 11:23 | PROVIDERS: ATTEND Nurse Practitioner | DX: R07.9 Chest pain, unspecified (principal) ==

== ENCOUNTER → 2017-04-04 | Outpatient (CLI) | payer BC ==
[~2017-04-04] MED LIST changes: +ALFU10TA2 PO; -ALFU10TA30 PO
--- NOTE | 2017-04-04 13:42 | DIAGNOSTIC IMAGING REPORT ---
KUB HISTORY: Nephrolithiasis. COMPARISON: KUB 08/18/2016. FINDINGS: The bowel gas pattern is unremarkable. There are no dilated loops of small bowel to suggest an obstruction. There are poststernotomy changes. There are suggestion of a 1.8 cm nodular density within the left upper lobe. This could be related to an overlapping rib. A 6 mm stone within the interpolar region of the left kidney. No right renal calculi identified. No definite ureteral calculi. A 1 cm round density adjacent to the right L1 transverse process and an amorphous calcification adjacent to the left L1 transverse process. These may be due to vascular calcifications. IMPRESSION: 1. Stable 6 mm stone within the left kidney. 2. No definite right renal calculi. 3. No ureteral calculi. 4. Possible 1.7 m nodule within the left upper lobe. Follow-up PA and lateral views of the chest is recommended for further evaluation to exclude a pulmonary lesion. 5. These findings were called/faxed to the referring physician's office. Electronically signed by: Jose Earl M.D. 04/04/2017 1:40 PM Dictated Date/Time: 04/04/2017 1:32 PM
== END | disposition home or self-care (01) ==
LOC: C.RAD 12:38
PROVIDERS: ATTEND Urology
DX: N20.0 Calculus of kidney (principal)

== ENCOUNTER → 2017-04-06 | Outpatient (CLI) | payer BC ==
--- NOTE | 2017-04-06 11:36 | DIAGNOSTIC IMAGING REPORT ---
CHEST 2 VIEWS ROUTINE HISTORY: 81 years-old Male D49.1 Lung [id number] COMPARISON: Chest radiograph 05/09/2016 TECHNIQUE: PA and lateral views of the chest FINDINGS: Cardiac silhouette is mildly enlarged, unchanged. Atherosclerosis of the aorta. Prior median sternotomy. Pulmonary vascular congestion is noted with unchanged mild interstitial coarsening. Linear subsegmental right greater than left bibasilar opacities. Mild biapical pleural-parenchymal scarring. No large pleural effusion. Bones of the chest appear grossly intact. IMPRESSION: 1. Cardiomegaly with pulmonary vascular congestion and possibly mild pulmonary edema. 2. Linear subsegmental right greater than left bibasilar opacities suggest atelectasis. The above report was generated using voice recognition software. It may contain grammatical, syntax or spelling errors. Electronically signed by: Mc Salamanca M.D. 04/06/2017 11:34 AM Dictated Date/Time: 04/06/2017 11:32 AM
== END | disposition home or self-care (01) ==
LOC: C.RAD 11:06
PROVIDERS: ATTEND Urology
DX: D49.1 Neoplasm of unspecified behavior of respiratory system (principal); I51.7 Cardiomegaly; R91.8 Other nonspecific abnormal finding of lung field; R09.89 Other specified symptoms and signs involving the circulatory and respiratory systems

== ENCOUNTER → 2017-06-19 | Outpatient (CLI) | payer BC ==
[~2017-06-19] MED LIST changes: +CITA20TA4 PO; +DICL1GEL12 TOP; +DOCU100C31 PO; +POLY335019 PO; -URC10 PO
[2017-06-19 16:58] LABS: BASO % 0.8 %; BASO ABS # 0.05 K/uL (0-0.2); EOS % 2.6 %; EOS ABS # 0.17 K/uL (0-0.5); HEMATOCRIT 42.9 % (42-52); HEMOGLOBIN 14.4 g/dL (14.0-18.0); IG# 0.03 K/uL (0.00-0.02); LYMPH % 25.2 %; LYMPH ABS # 1.65 K/uL (1.2-3.4); MEAN CELL VOLUME 93.7 fL (80-100); MEAN CORPUSCULAR HEMOGLOBIN 31.4 pg (25-34); MEAN CORPUSCULAR HGB CONC 33.6 g/dl (32-36); MEAN PLATELET VOLUME 9.9 fL (7.4-10.4); MONO % 8.5 %; MONO ABS # 0.56 K/uL (0.11-0.59); NEUT % 62.4 %; NEUT ABS # 4.09 K/uL (1.4-6.5); PLATELET COUNT 206 K/uL (130-400); RED CELL DISTRIBUTION WIDTH CV 14.7 % (11.5-14.5); RED CELL DISTRIBUTION WIDTH SD 50.4 fL (36.4-46.3); WHITE BLOOD COUNT 6.55 K/uL (4.8-10.8)
[2017-06-19 17:38] LABS: ALBUMIN 3.3 gm/dl (3.4-5.0); ALT/SGPT 26 U/L (12-78); AST/SGOT 22 U/L (15-37); BLOOD UREA NITROGEN 18 mg/dl (7-18); CALCIUM 8.8 mg/dl (8.5-10.1); CARBON DIOXIDE 23 mmol/L (21-32); CREATININE 0.99 mg/dl (0.60-1.40); GLUCOSE 102 mg/dl (70-99); POTASSIUM 4.4 mmol/L (3.5-5.1); SODIUM 141 mmol/L (136-145)
[2017-06-19 17:39] LABS: ALKALINE PHOSPHATASE 74 U/L (45-117); CHOLESTEROL 169 mg/dl (0-200); LDL CHOLESTEROL CALCULATED 94 mg/dl; TOTAL PROTEIN 7.2 gm/dl (6.4-8.2)
== END | disposition home or self-care (01) ==
LOC: C.LABBFT 11:13
PROVIDERS: ATTEND Internal Medicine Cardiovascular Disease
DX: I25.2 Old myocardial infarction (principal); I25.10 Atherosclerotic heart disease of native coronary artery without angina pectoris; E78.00 Pure hypercholesterolemia, unspecified; Z95.1 Presence of aortocoronary bypass graft

== ENCOUNTER → 2017-09-11 | Outpatient (CLI) | payer BC ==
--- NOTE | 2017-09-11 14:23 | DIAGNOSTIC IMAGING REPORT ---
KUB CLINICAL HISTORY: Nephrolithiasis. FINDINGS: 2 AP supine abdominal radiographs are compared to study dated 04/04/2017 and correlated with abdominal CT dated 02/08/2009. There is a nonobstructed abdominal bowel gas pattern. Suture material projects over the left lower quadrant. A 6 mm nonobstructing calculus projects over the left kidney. There is a questionable 5 mm calcification projecting over the right kidney. No ureteral stone is identified. The skeletal structures are osteopenic. Mild lumbosacral spondylosis is observed. Midline sternotomy wires are noted. IMPRESSION: 1. Nonobstructing left renal calculus. 2. Suspect a nonobstructing right renal calculus. Electronically signed by: Grupo Mcpherson M.D. 09/11/2017 2:21 PM Dictated Date/Time: 09/11/2017 2:19 PM
== END | disposition home or self-care (01) ==
LOC: C.RAD 13:46
PROVIDERS: ATTEND Urology
DX: N20.0 Calculus of kidney (principal)

== ENCOUNTER 2020-01-01 18:09 | Inpatient (IN) ==
--- NOTE | 2020-01-01 19:00 | XRay Report ---
XR chest 1V portable CLINICAL HISTORY: Preoperative chest. Fracture COMPARISON STUDY: 12/20/2019 FINDINGS: The heart is the upper limits of normal in size. There is resolving pulmonary vascular holly estion. There is a persistent 16mm opacity within the left midlung zone. This is felt to represent a calcified pleural plaque as was visualized on a regular 2009 CT scan. There are postsurgical changes of a midline sternotomy. There are no significant pleural effusions. There is no lobar consolidation. [ IMPRESSION: 1. Near complete interval resolution of the previously described pulmonary vascular congestion 2. No acute findings. No evidence of focal pulmonary consolidation 3. Left midlung zone opacity which is felt to be secondary to a calcified pleural plaque ACT 112: Negative or not required by law. Electronically signed by: Jet Browne M.D. 01/01/2020 6:58 PM
--- NOTE | 2020-01-01 19:07 | Emergency Department Note ---
Impression & Plan Closed fracture of left hip, COVID-19, Hypernatremia ED Provider Note Provider: Chepe Zamarripa MD DATE OF SERVICE:01/01/2020 CHIEF COMPLAINT: Left hip fracture HISTORY OF PRESENT ILLNESS: Patient is a 84-year-old gentleman history of dementia, CABG/CAD, kidney stone, closed zygomatic arch fracture presenting today from [facility] via ambulance due to findings of a left hip fracture. Discussed with both the rehab hospital and the patient's for history as the patient himself is on a provide additional history. This is secondary to his dementia. They report that the patient suffered a fall at the stairs at home on the 13th of this month and was seen in the ER. Noted to have facial fractures on prior evaluation with a negative pelvis x-ray at that time. Patient reportedly with some pain since then but significantly worsened yesterday prompting CT of the hip and femur today. This is found a left subcapital hip fracture and sent here for further evaluation and care. Patient self knows his name but is again unable to provide significant additional history. Discussed patient's via phone with states that he is unfortunately suffering from severe dementia and this is not a typical recently for his mental status. I did discuss with the patient's on the phone initially the given the findings already known of the hip fracture will likely need surgery for comfort and she was in agreement with this plan. REVIEW OF SYSTEMS: Unable to obtain due to the patient's mental status/dementia PAST MEDICAL HISTORY: As noted above MEDICATIONS: Reviewed medication listing from [facility]. SOCIAL HISTORY: Patient but currently residing at [facility] since a fall several weeks ago. Previously lived at home. PHYSICAL EXAM: GENERAL: alert and oriented to person in no acute distress on stretcher, patient override additional history. He is in cloth mitts on his hands. Head: normocephalic and atraumatic EYES: No injection, discharge or icterus. PERRL NECK: Trachea midline. Supple. ENT: Mucous membranes pink and moist. LUNGS: Airway patent. No retractions. Breath sounds clear HEART: Regular rate and rhythm. No chest wall tenderness ABDOMEN: Soft and non-tender, without guarding or rebound. SKIN: Acyanotic, warm, dry, without rashes EXTREMITIES: Without swelling, tenderness or deformity except for tenderness with ROM of the left hip. NEUROLOGICAL: No focal deficits. No facial droop. Pain with ROM of the left lower extremity withdraws to pain in the left foot. EK bpm sinus rhythm with sinus arrhythmia with left axis. No ST segment elevation. Diffuse T wave murmurs across precordium and laterally and including aVL. CONTINUOUS CARDIAC MONITORING: was ordered and showed a heart rate of 68 bpm in sinus rhythm occasional sinus arrhythmia GCS 14 confusion reportedly at his baseline Patient's laboratory studies and imaging reviewed. Differential includes Fracture, dislocation, contusion, intra-abdominal, pneumothorax, intrathoracic, intracranial, neurologic, compartment syndrome, rhabdomyolysis, as well as other pathologies. IMPRESSION/MEDICAL DECISION MAKING: Patient presents for evaluation of a left hip fracture found on CT today with evidence of a displaced subcapital left hip fracture. Discussed that the facility/[facility] that they report there is been no significant falls since his admission there after his last fall. Did have some left hip pain on the prior evaluation but is been basically bedbound since then and wonder if this was simply not evident on the x-ray obtained at that time. Patient is resting comfortably until he begins to move the left hip. Patient's dementia limits his history from him and occasionally moves causing some pain. Withdraws the left foot to touch and pain but difficult to fully assess his sensation here. No noted to dislocation of the left hip on the CT scan per radiology report. Basic labs x-ray and EKG were obtained for preoperative evaluation. UA without evidence of infection. CBC shows evidence of significant leukocytosis of 17 but no significant anemia. INR not elevated not on significant anticoagulation per records. BMP was completed as well with some evidence of mild hypernatremia. Question if this is from decreased intake given some IV fluid. Covid screening was sent and returns positive for coronavirus. Hospitalist was made aware as well as charge nurse to call the rehab hospital make them aware of this finding. Chest x-ray appears much more clear today without significant pulmonary vascular congestion at this time. Patient had prior CT of the head from prior fall showing zygomatic arch fracture no feel we need additional at this time. Discussed with patient's via phone to discussed likely need for fixation to prevent continued discomfort to the patient as he cannot remember that he broke his hip and continue to try to move it. She was in agreement this plan. The hospitalist was alerted and will evaluate the patient. Contacted the front end developer designer orthopedist who was made aware of the patient. Patient was maintained in cloth mitts here (that he came wearing from the rehab hospital) for patient staff safety and to which he medical care as he continually tries to remove his IV and occasionally grab at the bed. Does not appear highly agitated however and normally rest quiet when no one is near the bed. DIAGNOSIS: Left hip fracture, COVID-19, hypernatremia DISPOSITION: Hospitalist will evaluate Past Med/Surg History Medical History (Updated 01/01/20 @ 19:54 by Chepe Zamarripa M.D.) Actinic keratosis Anemia Arteriosclerotic cardiovascular disease Benign colonic polyp BPH (benign prostatic hyperplasia) CAD (coronary artery disease) FOLLOWS DR. ALLAN Q 6 MONTHS Depression Herpes zoster Hypercholesterolemia Hypertension Kidney stones Lung neoplasm PT'S UNAWARE Myocardial infarction Myocardial Infarction 5 YRS AGO > [facility] > SAW DR. ALLAN THEN WAS TRANSFERRED TO [facility], initial episode of care Pain in anterior left upper extremity DUE TO NEUROPATHY Sinus congestion Stress hyperglycemia Sundowning Troponin I above reference range Surgical History H/O inguinal hernia repair History of cardiac cath 6 YRS AGO [facility] FOR CHEST PAIN > 1 STENT History of colonoscopy History of heart artery stent 1 STENT > 6 YRS AGO > DR. ALLAN @[facility] Hx of hand surgery 1996 >LEFT HAND >MIDDLE FINGER AMPUTATION Hx of vasectomy S/P CABG x 3 5 YRS AGO > [facility] > DR. WHARTON> DUE TO [place] Family History Mother Lung cancer Other Tuberculosis Denies family history of Prostate cancer Colorectal cancer Social History Smoking Status: Never smoker Age Started Using Tobacco: 13; Age Quit Using Tobacco: 50; packs per day: 1; Years Smoked: 21; Number of Years Since Quit: 36; Second Hand Exposure: No; Hx Alcohol Use: Yes Alcohol type: wine Hx Substance Use: No Preferred Language: Egyptian Communication Ability: Effective Hearing Ability: Use of Hearing Aid Surgical Elastic Knitter Required: No Beliefs That Will Affect Care: None marital status: Current Living Situation: Spouse current occupational status: retired Feels Safe at Home: Yes Dental Care, Regularly: Yes Seatbelt Use: always Sunscreen Use: Yes Assistive Devices: Denture - Upper, Denture - Lower and Glasses Allergies Allergies Allergy/AdvReac Type Severity Reaction Status Date / Time bee venom protein (honey bee) Allergy Severe ANAPHYLAXIS Verified 09/16/19 10:58 hydrocodone Allergy hallucinati Verified 09/16/19 10:58 ons Home Meds Home Medications Medication Instructions Recorded Confirmed loratadine 10 mg tablet 10 mg PO QAM 11/05/18 01/01/20 finasteride 5 mg PO QAM 03/22/19 01/01/20 omega-3 fatty acids [Fish Oil 1,000 mg PO QAM 03/22/19 01/01/20 Concentrate] tamsulosin 0.4 mg PO QPM 03/25/19 01/01/20 acetaminophen 650 mg PO Q4H PRN 01/01/20 01/01/20 ascorbic acid (vitamin C) 500 mg PO BID 01/01/20 01/01/20 atorvastatin 80 mg PO HS 01/01/20 01/01/20 bisacodyl 10 mg SC DAILY PRN 01/01/20 01/01/20 cholecalciferol (vitamin D3) 2,000 unit PO DAILY 01/01/20 01/01/20 [Vitamin D3] docusate sodium 100 mg PO BID 01/01/20 01/01/20 famotidine 20 mg PO DAILY 01/01/20 01/01/20 lorazepam 1 mg PO Q4H PRN 01/01/20 01/01/20 magnesium hydroxide [Milk of 30 ml PO DAILY PRN 01/01/20 01/01/20 Magnesia] melatonin 3 mg PO HS 01/01/20 01/01/20 nitroglycerin [Nitrostat] 0.4 mg SUBLINGUAL DIRECTED PRN 01/01/20 01/01/20 polyethylene glycol 3350 [Miralax] 17 g PO QDL PRN 01/01/20 01/01/20 quetiapine [Seroquel] 25 mg PO HS PRN 01/01/20 01/01/20 sennosides-docusate sodium 1 tab-cap PO QDL PRN 01/01/20 01/01/20 [Senokot-S] sodium phosphates [Fleet Enema] 133 ml SC DAILY PRN 11/25/20 11/25/20 trazodone 25 mg PO HS PRN 01/01/20 01/01/20 zinc sulfate 220 mg PO DAILY 01/01/20 01/01/20 Previous Rx's Medication Instructions Recorded lisinopril 2.5 mg tablet 2.5 mg PO QAM #90 tab 05/01/19 citalopram 20 mg tablet 20 mg PO DAILY #90 tab 06/11/19 gabapentin 100 mg capsule 100 mg PO BID #60 cap 09/02/19 Results & Data (ED) Vital Signs Vital Signs - 24 hr 01/01/20 18:19 Temperature 36.9 C Temperature Source Oral Pulse Rate 84 Respiratory Rate 20 Blood Pressure 102/75 Blood Pressure Mean 84 Blood Pressure Position Lying Pulse Oximetry 98 Oxygen Delivery Method Room Air Sepsis Recent Fever Within 48 Hours No Sepsis New/Unexplained Change in Mental Status No Sepsis Action Taken by Nursing No Action Required Laboratory Data Result diagrams: 01/01/20 19:19 01/01/20 19:19 Lab Results 01/01/20 01/01/20 01/01/20 Range/Units 18:50 19:19 19:19 WBC 17.47 H (4.8-10.8) K/uL RBC 4.99 (4.7-6.1) M/uL Hgb 16.2 (14.0-18.0) g/dL Hct 47.9 (42-52) % MCV 96.0 (80-100) fL MCH 32.5 (25-34) pg MCHC 33.8 (32-36) g/dL RDW Std Deviation 48.5 H (36.4-46.3) fL RDW Coeff of Lauren 13.8 (11.5-14.5) % Plt Count 249 (130-400) K/uL MPV 10.4 (7.4-10.4) fL Immature Gran % (Auto) 0.3 % Neut % (Auto) 81.9 % Lymph % (Auto) 6.7 % Schley % (Auto) 10.6 % Eos % (Auto) 0.3 % Baso % (Auto) 0.2 % Neut # (Auto) 14.30 H (1.4-6.5) K/uL Lymph # (Auto) 1.17 L (1.2-3.4) K/uL Schley # (Auto) 1.86 H (0.11-0.59) K/uL Eos # (Auto) 0.05 (0-0.5) K/uL Baso # (Auto) 0.03 (0-0.2) K/uL Immature Gran # (Auto) 0.06 H (0.00-0.02) K/uL PT 11.4 (9.0-12.0) Seconds INR 1.1 (0.9-1.1) APTT 23.3 (21.0-31.0) Seconds PTT Ratio 0.8 Sodium (136-145) mmol/L Potassium (3.5-5.1) mmol/L Chloride (98-107) mmol/L Carbon Dioxide (21-32) mmol/L Anion Gap (3-11) BUN (7-18) mg/dl Creatinine (0.6-1.4) mg/dl Est Cr Clr Drug Dosing ml/min Est GFR ( Amer) Est GFR (Non-Af Amer) BUN/Creatinine Ratio (10-20) Glucose (70-99) mg/dl Calcium (8.5-10.1) mg/dl Urine Color Yellow Urine Appearance Clear (Clear) Urine pH 5.5 (4.5-7.5) Ur Specific Glenvil >= 1.030 (1.000-1.030) Urine Protein Negative (Negative) Urine Glucose (UA) Negative (Negative) Urine Ketones Trace H (Negative) Urine Blood Negative (Negative) Urine Nitrite Negative (Negative) Urine Bilirubin Negative (Negative) Urine Urobilinogen Negative (Negative) Ur Leukocyte Esterase Negative (Negative) COVID-19 Eval Order SARS-CoV-2, RNA, NAAT (NEGATIVE) 01/01/20 01/01/20 01/01/20 Range/Units 19:19 19:19 19:19 WBC (4.8-10.8) K/uL RBC (4.7-6.1) M/uL Hgb (14.0-18.0) g/dL Hct (42-52) % MCV (80-100) fL MCH (25-34) pg MCHC (32-36) g/dL RDW Std Deviation (36.4-46.3) fL RDW Coeff of Lauren (11.5-14.5) % Plt Count (130-400) K/uL MPV (7.4-10.4) fL Immature Gran % (Auto) % Neut % (Auto) % Lymph % (Auto) % Schley % (Auto) % Eos % (Auto) % Baso % (Auto) % Neut # (Auto) (1.4-6.5) K/uL Lymph # (Auto) (1.2-3.4) K/uL Schley # (Auto) (0.11-0.59) K/uL Eos # (Auto) (0-0.5) K/uL Baso # (Auto) (0-0.2) K/uL Immature Gran # (Auto) (0.00-0.02) K/uL PT (9.0-12.0) Seconds INR (0.9-1.1) APTT (21.0-31.0) Seconds PTT Ratio Sodium 148 H (136-145) mmol/L Potassium 4.1 (3.5-5.1) mmol/L Chloride 115 H (98-107) mmol/L Carbon Dioxide 26 (21-32) mmol/L Anion Gap 7.0 (3-11) BUN 44 H (7-18) mg/dl Creatinine 1.11 (0.6-1.4) mg/dl Est Cr Clr Drug Dosing 52.5 ml/min Est GFR ( Amer) 70.3 Est GFR (Non-Af Amer) 60.7 BUN/Creatinine Ratio 39.7 H (10-20) Glucose 127 H (70-99) mg/dl Calcium 10.0 (8.5-10.1) mg/dl Urine Color Urine Appearance (Clear) Urine pH (4.5-7.5) Ur Specific Glenvil (1.000-1.030) Urine Protein (Negative) Urine Glucose (UA) (Negative) Urine Ketones (Negative) Urine Blood (Negative) Urine Nitrite (Negative) Urine Bilirubin (Negative) Urine Urobilinogen (Negative) Ur Leukocyte Esterase (Negative) COVID-19 Eval Order Covid19 [facility] SARS-CoV-2, RNA, NAAT POSITIVE A* (NEGATIVE) Discharge Plan Visit Data Chief Complaint: Hip Pain Stated Complaint: L HIP FX ED Provider: Chepe Zamarripa Discharge Problem: Closed fracture of left hip, COVID-19, Hypernatremia Forms Stand Alone Forms: My [facility] Prescriptions Prescriptions: No Action lisinopril 2.5 mg tablet 2.5 mg PO QAM Qty: 90 RF: 3 citalopram 20 mg tablet 20 mg PO DAILY Qty: 90 RF: 3 gabapentin [Neurontin] 100 mg capsule 100 mg PO BID Qty: 60 RF: 2 loratadine [Claritin] 10 mg tablet 10 mg PO QAM RF: 0 tamsulosin 0.4 mg capsule 0.4 mg PO QPM RF: 0 famotidine 20 mg Tablet 20 mg PO DAILY RF: 0 ascorbic acid (vitamin C) 500 mg Tablet 500 mg PO BID RF: 0 atorvastatin 80 mg tablet 80 mg PO HS RF: 0 docusate sodium 100 mg capsule 100 mg PO BID RF: 0 quetiapine [Seroquel] 25 mg Tablet 25 mg PO HS PRN (Reason: Agitation) RF: 0 nitroglycerin [Nitrostat] 0.4 mg Tablet, Sublingual 0.4 mg sublingual DIRECTED PRN (Reason: Chest Pain) RF: 0 lorazepam 1 mg Tablet 1 mg PO Q4H PRN (Reason: Anxiety) RF: 0 trazodone 50 mg tablet 25 mg PO HS PRN (Reason: Insomnia) RF: 0 acetaminophen 325 mg Tablet 650 mg PO Q4H PRN (Reason: Pain) RF: 0 melatonin 3 mg Tablet 3 mg PO HS RF: 0 polyethylene glycol 3350 [Miralax] 17 gram/dose Powder 17 g PO QDL PRN (Reason: Constipation) RF: 0 zinc sulfate 220 mg Capsule 220 mg PO DAILY RF: 0 cholecalciferol (vitamin D3) [Vitamin D3] 50 mcg (2,000 unit) Capsule 2,000 unit PO DAILY RF: 0 sennosides-docusate sodium [Senokot-S] 8.6-50 mg Tablet 1 tab-cap PO QDL PRN (Reason: Constipation) RF: 0 magnesium hydroxide [Milk of Magnesia] 400 mg/5 mL Suspension 30 ml PO DAILY PRN (Reason: Constipation) RF: 0 bisacodyl 10 mg Suppository 10 mg SC DAILY PRN (Reason: Constipation) RF: 0 Fleet Enema 19-7 gram/118 mL Enema 133 ml SC DAILY PRN (Reason: Constipation) RF: 0 omega-3 fatty acids [Fish Oil Concentrate] 1,000 mg capsule 1,000 mg PO QAM RF: 0 finasteride 5 mg tablet 5 mg PO QAM RF: 0 Discharge Problem: Closed fracture of left hip Qualifiers: Encounter type: initial encounter Qualified Code(s): S72.002A - Fracture of unspecified part of neck of left femur, initial encounter for closed fracture
[2020-01-01 19:09] LABS: Appearance Urine Clear (Clear); Bilirubin Urine Negative (Negative); Blood Urine Negative (Negative); Color Urine Yellow; Glucose Urine UA Negative (Negative); Ketones Urine Trace (Negative); Leukocyte Esterase Urine Negative (Negative); Nitrite Urine Negative (Negative); Protein Urine Negative (Negative); Specific Gravity Urine >= 1.030 (1.000-1.030); Urobilinogen Urine Negative (Negative); pH Urine 5.5 (4.5-7.5)
--- NOTE | 2020-01-01 19:16 | Orthopedic Consultation ---
Date of Consultation January 01, 2020 Assessment & Plan (1) Closed fracture of left hip: Left femoral neck fracture - displaced. Treatment limited to bipolar cemented hemiarthroplasty as soon as medically cleared/optimized, as early as tomorrow. CT findings and my recommendation for hip surgery as soon as medically possible was explained to his , Libertad, by phone to this evening. We discussed that surgery involves a hemiarthroplasty which is a partial hip replacement. The risks associated with the surgery include bleeding requiring transfusion, infection, leg length discrepancy, pain syndromes, need for repeat or revision surgeries, hip instability, blood clots, and complications related to anesthesia. Covid status was not known at the time of my discussion with Libertad. We discussed that he would need to be medically optimized for surgery as early as tomorrow. Discussed the benefit of surgery is eliminating the fracture and allow return to weightbearing status. We did discuss the high rate of instability in patients with dementia. She asked appropriate questions, demonstrated understanding, and provided approval for informed consent to proceed with left hip bipolar hemiarthroplasty. Given his Covid status and dementia, will defer in person evaluation discussion with him until the preop hold tomorrow. Can proceed to surgery as soon as cleared. Present on Admission?: Yes History of Present Illness Reason for Consultation: Left femoral neck fracture History of Present Illness 84-year-old male with dementia and with power of biology lecturer provided to his was admitted from the emergency room after a fall at [facility] resulting in difficulty weightbearing on his left lower extremity. Emergency room work-up revealed a displaced femoral neck fracture on CT. Given the dementia, history was obtained over the phone, speaking with his Libertad. Mrs. Marie states that his health has been poor since developing shingles and severe neuropathy. Over the years his dementia has worsened and he seems to be falling and frequently hitting his head as of late. She is uncertain when the fall happened. He does require some assistance for ambulation at baseline. He has not had a history of left hip pain that required treatment before. Allergies Allergy/AdvReac Type Severity Reaction Status Date / Time bee venom protein (honey bee) Allergy Severe ANAPHYLAXIS Verified 09/16/19 10:58 hydrocodone Allergy hallucinati Verified 09/16/19 10:58 ons Home Medications Medication Instructions Recorded Confirmed Type loratadine 10 mg tablet 10 mg PO QAM 11/05/18 01/01/20 History finasteride 5 mg PO QAM 03/22/19 01/01/20 History omega-3 fatty acids [Fish Oil 1,000 mg PO QAM 03/22/19 01/01/20 History Concentrate] tamsulosin 0.4 mg PO QPM 03/25/19 01/01/20 History lisinopril 2.5 mg tablet 2.5 mg PO QAM #90 tab 05/01/19 01/01/20 Rx citalopram 20 mg tablet 20 mg PO DAILY #90 tab 06/11/19 01/01/20 Rx gabapentin 100 mg capsule 100 mg PO BID #60 cap 09/02/19 01/01/20 Rx acetaminophen 650 mg PO Q4H PRN 01/01/20 01/01/20 History ascorbic acid (vitamin C) 500 mg PO BID 01/01/20 01/01/20 History atorvastatin 80 mg PO HS 01/01/20 01/01/20 History bisacodyl 10 mg PA DAILY PRN 01/01/20 01/01/20 History cholecalciferol (vitamin D3) 2,000 unit PO DAILY 01/01/20 01/01/20 History [Vitamin D3] docusate sodium 100 mg PO BID 01/01/20 01/01/20 History famotidine 20 mg PO DAILY 01/01/20 01/01/20 History lorazepam 1 mg PO Q4H PRN 01/01/20 01/01/20 History magnesium hydroxide [Milk of 30 ml PO DAILY PRN 01/01/20 01/01/20 History Magnesia] melatonin 3 mg PO HS 01/01/20 01/01/20 History nitroglycerin [Nitrostat] 0.4 mg SUBLINGUAL DIRECTED PRN 01/01/20 01/01/20 History polyethylene glycol 3350 [Miralax] 17 g PO QDL PRN 01/01/20 01/01/20 History quetiapine [Seroquel] 25 mg PO HS PRN 01/01/20 01/01/20 History sennosides-docusate sodium 1 tab-cap PO QDL PRN 01/01/20 01/01/20 History [Senokot-S] sodium phosphates [Fleet Enema] 133 ml PA DAILY PRN 01/01/20 01/01/20 History trazodone 25 mg PO HS PRN 01/01/20 01/01/20 History zinc sulfate 220 mg PO DAILY 01/01/20 01/01/20 History Patient History Medical History Actinic keratosis Anemia Arteriosclerotic cardiovascular disease Benign colonic polyp BPH (benign prostatic hyperplasia) CAD (coronary artery disease) FOLLOWS DR. ALLAN Q 6 MONTHS Depression Herpes zoster Hypercholesterolemia Hypertension Kidney stones Lung neoplasm PT'S UNAWARE Myocardial infarction Myocardial Infarction 5 YRS AGO > [facility] > SAW DR. ALLAN THEN WAS TRANSFERRED TO [facility], initial episode of care Pain in anterior left upper extremity DUE TO NEUROPATHY Sinus congestion Stress hyperglycemia Sundowning Troponin I above reference range Surgical History H/O inguinal hernia repair History of cardiac cath 6 YRS AGO [facility] FOR CHEST PAIN > 1 STENT History of colonoscopy History of heart artery stent 1 STENT > 6 YRS AGO > DR. ALLAN @[facility] Hx of hand surgery 1996 >LEFT HAND >MIDDLE FINGER AMPUTATION Hx of vasectomy S/P CABG x 3 5 YRS AGO > [facility] > DR. WHARTON> DUE TO [place] Family History Mother Lung cancer Other Tuberculosis Denies family history of Prostate cancer Colorectal cancer Social History Smoking Status: Never smoker Age Started Using Tobacco: 13; Age Quit Using Tobacco: 50; packs per day: 1; Years Smoked: 21; Number of Years Since Quit: 36; Second Hand Exposure: No; Hx Alcohol Use: No (unable to obtain information) Hx Substance Use: No Preferred Language: Azeri Communication Ability: Impaired Hearing Ability: Use of Hearing Aid Branch Mechanic Required: No Beliefs That Will Affect Care: None marital status: Current Living Situation: Spouse current occupational status: retired Feels Safe at Home: Declines to Answer Dental Care, Regularly: Yes Seatbelt Use: always Sunscreen Use: Yes Assistive Devices: Denture - Upper, Denture - Lower and Glasses Review of Systems Review of Systems: Unobtainable due to cognitive status Physical Exam Physical Exam: Exam deferred due to dementia and Covid status. Exam of the ER physician and admitting physician reviewed. Orthopedic exam unlikely to currency exchange specialist given his advanced imaging. Results & Data ([facility]) Vital Signs (Past 12 Hours) Vital Signs Temp Pulse Resp BP Pulse Ox 01/01/20 18:19 36.9 C 84 20 102/[address] scan of the left hip demonstrates a displaced (Garden 3/4) femoral neck fracture. PG Care Time/CCT Total # of Minutes Spent Total Time Spent with Patient: Total time spent is greater than 50% in coordination of care (as documented) at patient's floor/unit and/or counseling patient: Coding Level of Care Code 07903 Initial Inpt Care Lvl 3 Diagnoses Closed fracture of left hip S72.002A Encounter type: initial encounter (1) Closed fracture of left hip Encounter type: initial encounter Qualified Code(s): S72.002A - Fracture of unspecified part of neck of left femur, initial encounter for closed fracture
[2020-01-01 19:35] LABS: Basophils # (auto) 0.03 K/uL (0-0.2); Basophils % (auto) 0.2 %; Eosinophils # (auto) 0.05 K/uL (0-0.5); Eosinophils % (auto) 0.3 %; Hematocrit (blood only) 47.9 % (42-52); Hemoglobin 16.2 g/dL (14.0-18.0); Immature Granulocytes # (auto) 0.06 K/uL (0.00-0.02); Immature Granulocytes % (auto) 0.3 %; Lymphocytes # (auto) 1.17 K/uL (1.2-3.4); Lymphocytes % (auto) 6.7 %; Mean Corpuscular Hemoglobin 32.5 pg (25-34); Mean Corpuscular Hgb Conc 33.8 g/dL (32-36); Mean Platelet Volume 10.4 fL (7.4-10.4); Monocytes # (auto) 1.86 K/uL (0.11-0.59); Monocytes % (auto) 10.6 %; Neutrophils % (auto) 81.9 %; Platelet Count 249 K/uL (130-400); RDW Coefficient of Variation 13.8 % (11.5-14.5); RDW Standard Deviation 48.5 fL (36.4-46.3); Red Blood Count 4.99 M/uL (4.7-6.1); White Blood Count 17.47 K/uL (4.8-10.8)
[2020-01-01 19:45] LABS: INR 1.1 (0.9-1.1); Partial Thromboplastin Ratio 0.8; Partial Thromboplastin Time 23.3 Seconds (21.0-31.0); Prothrombin Time 11.4 Seconds (9.0-12.0)
[2020-01-01 19:52] LABS: BUN Creatinine Ratio 39.7 (10-20); Creatinine Clr Calc Pharmacy 52.5 ml/min; Est GFR (African American) 70.3; Est GFR (Non-African American) 60.7; Potassium 4.1 mmol/L (3.5-5.1)
[2020-01-01] MEDS ORDERED: LACTATED RINGER'S 500 ML IV ONE (19:54)
--- NOTE | 2020-01-01 19:58 | History & Physical Report ---
Date of Service January 01, 2020 Assessment & Plan (1) Closed fracture of left hip: Patient s/p fall on 12/19, presumably suffered fracture of left hip during that time. He is minimally verbal secondary to dementia, unable to provide history. NV intact. He has history of ischemic heart disease, CAD s/p CABG. EKG with suggestion of old ischemic events - no active ischemia. Unable to assess functional capacity given patient's underlying dementia and recent immobility. He does not have a known history of CHF or cerebral vascular disease. No history of DM or CKD. Other medical issues are seemingly stable. Per RCRI criteria patient is Class I risk (1 point for history of ischemic heart disease) correlating with 6% perioperative risk for MACE. -Check troponin -Check BNP Present on Admission?: Yes (2) COVID-19: Patient with rapid Covid-19 antigen testing performed in the ER prior to admission and found to be POSITIVE. No report of Covid-symptoms prior to arrival. Patient is afebrile, HD stable, no respiratory distress. He is saturating well on room air at 98%. CXR unremarkable for acute pulmonary process. -Admit to medical -Maintain isolation precautions - airborne and contact -Check inflammatory markers - ESR, CRP, Ferritin, Ddimer and LDH -No indication for treatment with Dexamethasone or Remdesivir at this time as patient is not currently hypoxic (>94% on room air) -Continue patients home vitamin supplementation - Zinc, Vitamin C and Vitamin D -Continue patient's home Pepcid -Tylenol PRN Present on Admission?: Yes (3) CAD (coronary artery disease): Chronic. Stable. Patient with history of CABG. He follows with Cardiology - last seen by Dr. Allan on 10/09/19. At that time there was no mention of anginal-type chest discomfort or anginal equivalents. He was noted to have persistent left sided chest pain secondary to post-herpetic neuralgia -Continue Atorvastatin -Hold Lisinopril in preoperative setting -No ASA listed on home medications Present on Admission?: Yes (4) Hypercholesteremia: Chronic. Stable -Continue Atorvastatin Present on Admission?: Yes (5) BPH (benign prostatic hyperplasia): Chronic. Lang placed in ER -Continue Flomax and Finasteride Present on Admission?: Yes (6) Depression: Chronic. Stable -Continue Citalopram Present on Admission?: Yes (7) Hypertension: Chronic. Stable -Hold Lisinopril in preoperative period -Continue to monitor F/E/N - D5LR at 80mL/hr after midnight, hypernatremia as above, monitor electrolytes, NPO after midnight Ppx - SCDs. Patient is at increased risk for thromboembolism given Covid-19 positivity Code - Full Dispo - Admit to medical, isolation precautions Present on Admission?: Yes History of Present Illness Chief Complaint: left hip fracture Primary Care Provider: Henrik Banks MD Aubrey Marie is an 84yo C male with history of CAD s/p CABG x 3V, HTN, HLP presenting from [facility] with left hip pain. Per report, patient fell down the stairs on 12/20/19 He has had persistent pain in his left hip. CT revealed a displaced subcapital left hip fracture. Patient with dementia at baseline. Minimally verbal and unable to provide details of history prior to arrival or participate in physical exam. No complaints offered Patient's pre-admission Covid-19 test found to be POSITIVE. Patient wearing mask during my encounter. I was wearing N95 and face shield. Allergies Allergy/AdvReac Type Severity Reaction Status Date / Time bee venom protein (honey bee) Allergy Severe ANAPHYLAXIS Verified 09/16/19 10:58 hydrocodone Allergy hallucinati Verified 09/16/19 10:58 ons Home Medications Medication Instructions Recorded Confirmed Type loratadine 10 mg tablet 10 mg PO QAM 11/05/18 01/01/20 History finasteride 5 mg PO QAM 03/22/19 01/01/20 History omega-3 fatty acids [Fish Oil 1,000 mg PO QAM 03/22/19 01/01/20 History Concentrate] tamsulosin 0.4 mg PO QPM 03/25/19 01/01/20 History lisinopril 2.5 mg tablet 2.5 mg PO QAM #90 tab 05/01/19 01/01/20 Rx citalopram 20 mg tablet 20 mg PO DAILY #90 tab 06/11/19 01/01/20 Rx gabapentin 100 mg capsule 100 mg PO BID #60 cap 09/02/19 01/01/20 Rx acetaminophen 650 mg PO Q4H PRN 01/01/20 01/01/20 History ascorbic acid (vitamin C) 500 mg PO BID 01/01/20 01/01/20 History atorvastatin 80 mg PO HS 01/01/20 01/01/20 History bisacodyl 10 mg [place] DAILY PRN 01/01/20 01/01/20 History cholecalciferol (vitamin D3) 2,000 unit PO DAILY 01/01/20 01/01/20 History [Vitamin D3] docusate sodium 100 mg PO BID 01/01/20 01/01/20 History famotidine 20 mg PO DAILY 01/01/20 01/01/20 History lorazepam 1 mg PO Q4H PRN 01/01/20 01/01/20 History magnesium hydroxide [Milk of 30 ml PO DAILY PRN 01/01/20 01/01/20 History Magnesia] melatonin 3 mg PO HS 01/01/20 01/01/20 History nitroglycerin [Nitrostat] 0.4 mg SUBLINGUAL DIRECTED PRN 01/01/20 01/01/20 History polyethylene glycol 3350 [Miralax] 17 g PO QDL PRN 01/01/20 01/01/20 History quetiapine [Seroquel] 25 mg PO HS PRN 01/01/20 01/01/20 History sennosides-docusate sodium 1 tab-cap PO QDL PRN 01/01/20 01/01/20 History [Senokot-S] sodium phosphates [Fleet Enema] 133 ml [place] DAILY PRN 01/01/20 01/01/20 History trazodone 25 mg PO HS PRN 01/01/20 01/01/20 History zinc sulfate 220 mg PO DAILY 01/01/20 01/01/20 History Past Med/Surg History Medical History (Updated 01/01/20 @ 20:46 by Lidia Michel DO) Actinic keratosis Anemia Arteriosclerotic cardiovascular disease Benign colonic polyp BPH (benign prostatic hyperplasia) CAD (coronary artery disease) FOLLOWS DR. ALLAN Q 6 MONTHS Depression Herpes zoster Hypercholesterolemia Hypertension Kidney stones Lung neoplasm PT'S UNAWARE Myocardial infarction Myocardial Infarction 5 YRS AGO > [facility] > SAW DR. ALLAN THEN WAS TRANSFERRED TO [facility], initial episode of care Pain in anterior left upper extremity DUE TO NEUROPATHY Sinus congestion Stress hyperglycemia Sundowning Troponin I above reference range Surgical History H/O inguinal hernia repair History of cardiac cath 6 YRS AGO [facility] FOR CHEST PAIN > 1 STENT History of colonoscopy History of heart artery stent 1 STENT > 6 YRS AGO > DR. ALLAN @[facility] Hx of hand surgery 1996 >LEFT HAND >MIDDLE FINGER AMPUTATION Hx of vasectomy S/P CABG x 3 5 YRS AGO > [facility] > DR. WHARTON> DUE TO [place] Family History Mother Lung cancer Other Tuberculosis Denies family history of Prostate cancer Colorectal cancer Social History Smoking Status: Never smoker Age Started Using Tobacco: 13; Age Quit Using Tobacco: 50; packs per day: 1; Years Smoked: 21; Number of Years Since Quit: 36; Second Hand Exposure: No; Hx Alcohol Use: Yes Alcohol type: wine Hx Substance Use: No Preferred Language: [place] Communication Ability: Effective Hearing Ability: Use of Hearing Aid It Application Architect Required: No Beliefs That Will Affect Care: None marital status: Current Living Situation: Spouse current occupational status: retired Feels Safe at Home: Yes Dental Care, Regularly: Yes Seatbelt Use: always Sunscreen Use: Yes Assistive Devices: Denture - Upper, Denture - Lower and Glasses Review of Systems Review of Systems: All systems reviewed & are unremarkable except as noted in HPI & below Physical Exam Physical Exam: General: frail, elderly patient resting comfortably, NAD, minimally verbal Skin: warm, dry, intact, no rashes or lesions HEENT: NC/AT, PERRL, anicteric sclera, conjunctiva without injection, external ear normal to inspection and nontender, nares patent, moist mucus membranes, dentition intact, no oropharyngeal lesions, neck supple, trachea midline, no LAD, no thyromegaly, no JVD Heart: +S1/S2, regular, no m/r/g Lungs: equal air entry bilaterally, no rales/rhonchi/wheezes Abd: +BS, soft, NT/ND, no masses/organomegaly/ascites Ext: warm, 2+ pulses in UE/LE bilaterally, no clubbing/cyanosis or edema, soft mitt restraints on bilateral UEs, LLE shortened and externally rotated, tender to palpation over hip, no ecchymosis Neuro: nonfocal Results & Data Results & Data ([facility]) Vital Signs (Past 12 Hours) Vital Signs Temp Pulse Resp BP Pulse Ox 01/01/20 18:19 36.9 C 84 20 102/75 98 Laboratory Results Lab Results 01/01/20 01/01/20 01/01/20 Range/Units 18:50 19:19 19:19 WBC 17.47 H (4.8-10.8) K/uL RBC 4.99 (4.7-6.1) M/uL Hgb 16.2 (14.0-18.0) g/dL Hct 47.9 (42-52) % MCV 96.0 (80-100) fL MCH 32.5 (25-34) pg MCHC 33.8 (32-36) g/dL RDW Std Deviation 48.5 H (36.4-46.3) fL RDW Coeff of Lauren 13.8 (11.5-14.5) % Plt Count 249 (130-400) K/uL MPV 10.4 (7.4-10.4) fL Immature Gran % (Auto) 0.3 % Neut % (Auto) 81.9 % Lymph % (Auto) 6.7 % [place] % (Auto) 10.6 % Eos % (Auto) 0.3 % Baso % (Auto) 0.2 % Neut # (Auto) 14.30 H (1.4-6.5) K/uL Lymph # (Auto) 1.17 L (1.2-3.4) K/uL [place] # (Auto) 1.86 H (0.11-0.59) K/uL Eos # (Auto) 0.05 (0-0.5) K/uL Baso # (Auto) 0.03 (0-0.2) K/uL Immature Gran # (Auto) 0.06 H (0.00-0.02) K/uL PT 11.4 (9.0-12.0) Seconds INR 1.1 (0.9-1.1) APTT 23.3 (21.0-31.0) Seconds PTT Ratio 0.8 Sodium (136-145) mmol/L Potassium (3.5-5.1) mmol/L Chloride (98-107) mmol/L Carbon Dioxide (21-32) mmol/L Anion Gap (3-11) BUN (7-18) mg/dl Creatinine (0.6-1.4) mg/dl Est Cr Clr Drug Dosing ml/min Est GFR ( Amer) Est GFR (Non-Af Amer) BUN/Creatinine Ratio (10-20) Glucose (70-99) mg/dl Calcium (8.5-10.1) mg/dl Urine Color Yellow Urine Appearance Clear (Clear) Urine pH 5.5 (4.5-7.5) Ur Specific [place] >= 1.030 (1.000-1.030) Urine Protein Negative (Negative) Urine Glucose (UA) Negative (Negative) Urine Ketones Trace H (Negative) Urine Blood Negative (Negative) Urine Nitrite Negative (Negative) Urine Bilirubin Negative (Negative) Urine Urobilinogen Negative (Negative) Ur Leukocyte Esterase Negative (Negative) COVID-19 Eval Order SARS-CoV-2, RNA, NAAT (NEGATIVE) 01/01/20 01/01/20 01/01/20 Range/Units 19:19 19:19 19:19 WBC (4.8-10.8) K/uL RBC (4.7-6.1) M/uL Hgb (14.0-18.0) g/dL Hct (42-52) % MCV (80-100) fL MCH (25-34) pg MCHC (32-36) g/dL RDW Std Deviation (36.4-46.3) fL RDW Coeff of Lauren (11.5-14.5) % Plt Count (130-400) K/uL MPV (7.4-10.4) fL Immature Gran % (Auto) % Neut % (Auto) % Lymph % (Auto) % [place] % (Auto) % Eos % (Auto) % Baso % (Auto) % Neut # (Auto) (1.4-6.5) K/uL Lymph # (Auto) (1.2-3.4) K/uL [place] # (Auto) (0.11-0.59) K/uL Eos # (Auto) (0-0.5) K/uL Baso # (Auto) (0-0.2) K/uL Immature Gran # (Auto) (0.00-0.02) K/uL PT (9.0-12.0) Seconds INR (0.9-1.1) APTT (21.0-31.0) Seconds PTT Ratio Sodium 148 H (136-145) mmol/L Potassium 4.1 (3.5-5.1) mmol/L Chloride 115 H (98-107) mmol/L Carbon Dioxide 26 (21-32) mmol/L Anion Gap 7.0 (3-11) BUN 44 H (7-18) mg/dl Creatinine 1.11 (0.6-1.4) mg/dl Est Cr Clr Drug Dosing 52.5 ml/min Est GFR ( Amer) 70.3 Est GFR (Non-Af Amer) 60.7 BUN/Creatinine Ratio 39.7 H (10-20) Glucose 127 H (70-99) mg/dl Calcium 10.0 (8.5-10.1) mg/dl Urine Color Urine Appearance (Clear) Urine pH (4.5-7.5) Ur Specific [place] (1.000-1.030) Urine Protein (Negative) Urine Glucose (UA) (Negative) Urine Ketones (Negative) Urine Blood (Negative) Urine Nitrite (Negative) Urine Bilirubin (Negative) Urine Urobilinogen (Negative) Ur Leukocyte Esterase (Negative) COVID-19 Eval [facility] SARS-[facility]-2, RNA, NAAT POSITIVE A* (NEGATIVE) Diagnostic Findings XR chest 1V portable CLINICAL HISTORY: Preoperative chest. Fracture COMPARISON STUDY: 12/20/2019 FINDINGS: The heart is the upper limits of normal in size. There is resolving pulmonary vascular congestion. There is a persistent 16mm opacity within the left midlung zone. This is felt to represent a calcified pleural plaque as was visualized on a regular 2009 CT scan. There are postsurgical changes of a midline sternotomy. There are no significant pleural effusions. There is no lobar consolidation.[ IMPRESSION: 1. Near complete interval resolution of the previously described pulmonary vascular congestion 2. No acute findings. No evidence of focal pulmonary consolidation 3. Left midlung zone opacity which is felt to be secondary to a calcified pleural plaque ACT 112: Negative or not required by law. Electronically signed by: Jet Browne M.D. 01/01/2020 6:58 PM Dictated: 01/01/201854Transcribed: 01/01/201854 ECG Additional Comments: EKG wtih NSR at 79 bpm, left axis deviation, AA=671, QRS=82, HOc=944, new anterior and inferior infarct present when compared to prior Code Status & VTE Plan VTE Prophylaxis Plan VTE Prophylaxis will be ordered: Yes PG Care Time/CCT Total # of Minutes Spent Total Time Spent with Patient: Total time spent is greater than 50% in coordination of care (as documented) at patient's floor/unit and/or counseling patient: Coding Level of Care Code 53869 Initial Inpt Care Lvl 3 Diagnoses Closed fracture of left hip S72.002A Encounter type: initial encounter COVID-19 U07.1 CAD (coronary artery disease) I25.10 Coronary Disease-Associated Artery/Lesion type: [place] artery [place] vs. transplanted heart: [place] heart Associated angina: without angina Hypercholesteremia E78.00 BPH (benign prostatic hyperplasia) N40.0 Lower urinary tract symptom presence: unspecified whether lower urinary tract symptoms present Depression F32.9 Depression Type: unspecified Hypertension I10 Hypertension type: essential hypertension (1) Closed fracture of left hip Encounter type: initial encounter Qualified Code(s): S72.002A - Fracture of unspecified part of neck of left femur, initial encounter for closed fracture (2) CAD (coronary artery disease) Coronary Disease-Associated Artery/Lesion type: [place] artery [place] vs. transplanted heart: [place] heart Associated angina: without angina Qualified Code(s): I25.10 - Atherosclerotic heart disease of [place] coronary artery without angina pectoris (3) BPH (benign prostatic hyperplasia) Lower urinary tract symptom presence: unspecified whether lower urinary tract symptoms present Qualified Code(s): N40.0 - Benign prostatic hyperplasia without lower urinary tract symptoms (4) Depression Depression Type: unspecified Qualified Code(s): F32.9 - Major depressive disorder, single episode, unspecified (5) Hypertension Hypertension type: essential hypertension Qualified Code(s): I10 - Essential (primary) hypertension
--- NOTE | 2020-01-01 20:35 | Anesthesiology Consultation ---
Date of Service January 01, 2020 Assessment & Plan (1) Encounter for pre-operative examination: Chart Review Chart Review: Acceptable Risk for Surgery and Patient NOT seen in Pre Admission Testing Consults Requested none ASA ASA4 Proposed Anesthesia Anesthesia Type: Spinal Risk / Benefits Reviewed With: PT / POA / Parent / Guardian, Accepts Plan and Informed Consent Obtained Additional Notes Note completed after seeing patient and taking to operating room due to COVID precautions History Surgery Operation Date: 01/02/20 10:30 Proposed Procedures p Bipolar Hip Prosthesis(Left) - Soham Williamson MD Height/Weight Height: 6 ft Weight: 74.9 kg Allergies Allergy/AdvReac Type Severity Reaction Status Date / Time bee venom protein (honey bee) Allergy Severe ANAPHYLAXIS Verified 09/16/19 10:58 hydrocodone Allergy hallucinati Verified 09/16/19 10:58 ons Medications Home Medications Medication Instructions Recorded Confirmed Last Taken loratadine 10 mg tablet 10 mg PO QAM 11/05/18 01/01/20 01/01/20 09:12 finasteride 5 mg PO QAM 03/22/19 01/01/20 01/01/20 09:12 omega-3 fatty acids [Fish Oil 1,000 mg PO QAM 03/22/19 01/01/20 12/31/19 10:38 Concentrate] tamsulosin 0.4 mg PO QPM 03/25/19 01/01/20 12/31/19 22:03 lisinopril 2.5 mg tablet 2.5 mg PO QAM #90 tab 05/01/19 01/01/20 01/01/20 09:12 citalopram 20 mg tablet 20 mg PO DAILY #90 tab 06/11/19 01/01/20 01/01/20 09:12 gabapentin 100 mg capsule 100 mg PO BID #60 cap 09/02/19 01/01/20 01/01/20 09:12 acetaminophen 650 mg PO Q4H PRN 01/01/20 01/01/20 12/29/19 ascorbic acid (vitamin C) 500 mg PO BID 01/01/20 01/01/20 01/01/20 09:12 atorvastatin 80 mg PO HS 01/01/20 01/01/20 12/31/19 22:03 bisacodyl 10 mg [place] DAILY PRN 01/01/20 01/01/20 Unknown cholecalciferol (vitamin D3) 2,000 unit PO DAILY 01/01/20 01/01/20 01/01/20 09:12 [Vitamin D3] docusate sodium 100 mg PO BID 01/01/20 01/01/20 12/31/19 08:52 famotidine 20 mg PO DAILY 01/01/20 01/01/20 01/01/20 09:12 lorazepam 1 mg PO Q4H PRN 01/01/20 01/01/20 01/01/20 02:18 magnesium hydroxide [Milk of 30 ml PO DAILY PRN 01/01/20 01/01/20 Unknown Magnesia] melatonin 3 mg PO HS 01/01/20 01/01/20 12/31/19 22:03 nitroglycerin [Nitrostat] 0.4 mg SUBLINGUAL DIRECTED PRN 01/01/20 01/01/20 Unknown polyethylene glycol 3350 [Miralax] 17 g PO QDL PRN 01/01/20 01/01/20 Unknown quetiapine [Seroquel] 25 mg PO HS PRN 01/01/20 01/01/20 12/28/19 20:17 sennosides-docusate sodium 1 tab-cap PO QDL PRN 01/01/20 01/01/20 Unknown [Senokot-S] sodium phosphates [Fleet Enema] 133 ml [place] DAILY PRN 01/01/20 01/01/20 Unknown trazodone 25 mg PO HS PRN 01/01/20 01/01/20 01/01/20 02:18 zinc sulfate 220 mg PO DAILY 01/01/20 01/01/20 12/31/19 15:28 Active Medications Generic Name Dose Route Start Last Admin Trade Name Freq PRN Reason Stop Dose Admin Ascorbic Acid 500 mg 01/01/20 21:18 01/02/20 09:23 Ascorbic Acid 500 Mg Tab PO 01/31/20 21:17 500 mg BID SHAQUILLE Administration Atorvastatin Calcium 80 mg 01/01/20 21:18 01/01/20 22:34 Atorvastatin 40 Mg Tab PO 01/31/20 21:17 80 mg HS SHAQUILLE Administration Citalopram Hydrobromide 20 mg 01/02/20 09:00 01/02/20 09:23 Citalopram 20 Mg Tab PO 02/01/20 08:59 20 mg DAILY SHAQUILLE Administration Docusate Sodium 100 mg 01/01/20 21:18 01/02/20 09:31 Docusate Sodium 100 Mg Cap PO 01/31/20 21:17 100 mg BID SHAQUILLE Administration Famotidine 20 mg 01/02/20 09:00 01/02/20 09:23 Famotidine 20 Mg Tab PO 02/01/20 08:59 20 mg DAILY SHAQUILLE Administration Finasteride 5 mg 01/02/20 09:00 01/02/20 11:33 Finasteride 5 Mg Tab PO 02/01/20 08:59 5 mg QAM SHAQUILLE Administration Gabapentin 100 mg 01/01/20 21:18 01/02/20 09:22 Gabapentin 100 Mg Cap PO 01/31/20 21:17 100 mg BID SHAQUILLE Administration Dextrose/Lactated Ringer's 1,000 mls @ 80 mls/hr 01/02/20 00:01 01/02/20 01:23 D5w And Lactated Ringers IV 01/03/20 01:00 80 mls/hr .[id number] SHAQUILLE Administration Loratadine 10 mg 01/02/20 09:00 01/02/20 09:23 Loratadine 10 Mg Tab PO 02/01/20 08:59 10 mg QAM SHAQUILLE Administration Lorazepam 1 mg 01/01/20 21:26 01/02/20 09:44 Lorazepam 1 Mg Tab PO 01/31/20 21:25 1 mg Q4H PRN Administration Anxiety Melatonin 3 mg 01/01/20 21:18 01/01/20 22:36 Melatonin 3 Mg Tab PO 01/31/20 21:17 3 mg HS SHAQUILLE Administration Morphine Sulfate 1 mg 01/01/20 21:18 01/02/20 06:38 Morphine Sulfate 2 Mg/Ml Carp IV 01/15/20 21:17 1 mg Q2H PRN Administration Pain Quetiapine Fumarate 25 mg 01/01/20 21:18 01/01/20 22:35 Quetiapine Fumarate 25 Mg Tablet PO 01/31/20 21:17 25 mg HS PRN Administration Agitation Senna/Docusate Sodium 2 tab 01/01/20 21:18 01/01/20 22:22 Docusate Sodium/Senna 50/8.6mg Tab PO 01/31/20 21:17 Not Given HS SHAQUILLE Tamsulosin HCl 0.4 mg 01/01/20 21:18 01/01/20 22:35 Tamsulosin Hcl 0.4 Mg Cap PO 01/31/20 21:17 0.4 mg QPM SHAQUILLE Administration Vitamin D 2,000 units 01/02/20 09:00 01/02/20 09:23 Cholecalciferol 1,000 Units 25 Mcg Tab PO 02/01/20 08:59 2,000 units DAILY SHAQUILLE Administration Zinc Sulfate 220 mg 01/02/20 09:00 01/02/20 09:23 Zinc Sulfate 220 Mg Capsule PO 02/01/20 08:59 220 mg DAILY SHAQUILLE Administration NPO Date Last Intake of Fluids: 01/01/20 Time Last Intake of Fluids: 23:59 Date Last Intake of Solids: 01/01/20 Time Last Intake of Solids: 23:59 Past Medical History Medical History Actinic keratosis Anemia Arteriosclerotic cardiovascular disease Benign colonic polyp BPH (benign prostatic hyperplasia) CAD (coronary artery disease) FOLLOWS DR. ALLAN Q 6 MONTHS Depression Herpes zoster Hypercholesterolemia Hypertension Kidney stones Lung neoplasm PT'S UNAWARE Myocardial infarction Myocardial Infarction 5 YRS AGO > [facility] > SAW DR. ALLAN THEN WAS TRANSFERRED TO [facility], initial episode of care Pain in anterior left upper extremity DUE TO NEUROPATHY Sinus congestion Stress hyperglycemia Troponin I above reference range Exercise / Class Metabolic Activity IV < 2 Limit ADL/Bedbound Past Family History Family History Mother Lung cancer Other Tuberculosis Denies family history of Prostate cancer Colorectal cancer Past Surgical History Surgical History H/O inguinal hernia repair History of cardiac cath 6 YRS AGO [facility] FOR CHEST PAIN > 1 STENT History of colonoscopy History of heart artery stent 1 STENT > 6 YRS AGO > DR. ALLAN @[facility] Hx of hand surgery 1996 >LEFT HAND >MIDDLE FINGER AMPUTATION Hx of vasectomy S/P CABG x 3 5 YRS AGO > > DR. WHARTON> DUE TO [place] See most recent cardiology note from Oct 2019 for full cardiac history. Patient had a Left ESWL 04/2019 at [facility] with Dr. Langston. Patient at time was ASA 3. Tolerated GA with LMA #5 without issue. Past Anesthesia History No Hx of Anesthesia Complications History of PONV No Hx of PONV Social History Smoking Status: Never smoker tobacco type: cigarettes Hx Alcohol Use: Yes Alcohol type: wine alcohol intake frequency: a few times a week Hx Substance Use: No Review of Systems not oriented to place and time Physical Exam Vital Signs Last Vital Signs Temp 37.2 C 01/01/20 23:08 Pulse 70 01/02/20 07:22 Resp 19 01/02/20 07:22 BP 127/80 01/02/20 07:22 Pulse Ox 96 01/02/20 07:22 Constitutional not obese ENMT Mouth: + poor dentition (many missing); no TMJ abnormality and oral opening not small Thyromental Distance: > or= 3.5 Finger Breadths Mallampati Class: II Neck normal visual inspection; neck extension not limited Respiratory normal respiratory effort Auscultation: lungs clear to auscultation bilaterally Cardiovascular Rate/Rhythm: regular rate and regular rhythm Heart Sounds: no murmur Neurologic moves all extremities Psychiatric Orientation: alert (not oriented x3 but does appear to respond to name when called) Testing Laboratory Results 01/02/20 06:26 01/02/20 06:26 PT 11.4 Seconds (9.0-12.0) 01/01/20 19:19 INR 1.1 (0.9-1.1) 01/01/20 19:19 APTT 23.3 Seconds (21.0-31.0) 01/01/20 19:19 Urine Color Yellow 01/01/20 18:50 Urine Appearance Clear (Clear) 01/01/20 18:50 Urine pH 5.5 (4.5-7.5) 01/01/20 18:50 Ur Specific [place] >= 1.030 (1.000-1.030) 01/01/20 18:50 Urine Protein Negative (Negative) 01/01/20 18:50 Urine Glucose (UA) Negative (Negative) 01/01/20 18:50 Urine Ketones Trace (Negative) H 01/01/20 18:50 Urine Nitrite Negative (Negative) 01/01/20 18:50 Ur Leukocyte Esterase Negative (Negative) 01/01/20 18:50 Blood Type B Negative 01/01/20 19:19 Antibody Screen NEGATIVE 01/01/20 19:19 Electrocardiogram Date: 03/26/19 Findings: + SB @ (55) LAFB, ST and T wave abnormality, consider anterior ischemia, prolonged QT, when compared with ECG of 05/10/2016 no significant change was found Other Testing Other Testing Per most recent cardiac note, "Echocardiogram May 10, 2016 with normal LV systolic function and wall motion. LV ejection fraction 60-65 percent. Borderline LVH. Mild mitral regurgitation. Mild dilatation of the ascending aorta reported."
[2020-01-01] MEDS ORDERED: MAGNESIUM HYDROXIDE SUSP 30 ML UDC PO PRN ×2 (21:18)
[2020-01-01] MEDS ORDERED: NALOXONE HCL 0.4 MG/1 ML VIAL/CARP IV PRN (21:18)
[2020-01-01] MEDS ORDERED: bisacodyL 10 MG SUPP PR PRN ×2 (21:18)
[2020-01-01] MEDS ORDERED: ACETAMINOPHEN 325 MG TAB PO PRN (21:18)
[2020-01-01 21:41] LABS: C Reactive Protein 0.56 mg/dl (0-0.29); Ferritin 405.6 ng/ml (8-388); Magnesium 2.6 mg/dl (1.8-2.4); NT Pro B Type Natriuretic Pept 256 pg/ml (0-1800); Phosphorus 4.6 mg/dl (2.5-4.9); Troponin I < 0.015 ng/ml (0-0.045)
[2020-01-01] MEDS ORDERED: PNEUMOCOCCAL ADMINISTRATION CHARGE ONE (21:59)
[2020-01-01] MEDS ORDERED: INFLUENZA ADMINISTRATION CHARGE ONE (21:59)
[2020-01-01] MEDS ORDERED: INFLUENZA VIRUS QUAD VACCINE 0.5 ML SYR IM ONE (21:59)
[2020-01-01] MEDS ORDERED: PNEUMOCOCCAL POLYSACCHARIDES 25 MCG/0.5 ML VIAL/SYR IM ONE (21:59)
[2020-01-01] MEDS: MoRPHine SULFATE 2 MG/ML CARP IV PRN (22:19)
[2020-01-01] MEDS: DOCUSATE SODIUM 100 MG CAP PO SCH (22:21)
[2020-01-01] MEDS: DOCUSATE SODIUM/SENNA 50/8.6MG TAB PO SCH (22:22)
[2020-01-01] MEDS: ATORVASTATIN 40 MG TAB PO SCH (22:34)
[2020-01-01] MEDS: QUEtiapine FUMARATE 25 MG TABLET PO PRN (22:35)
[2020-01-01] MEDS: TAMSULOSIN HCL 0.4 MG CAP PO SCH (22:35)
[2020-01-01] MEDS: ASCORBIC ACID 500 MG TAB PO SCH (22:35)
[2020-01-01] MEDS: GABAPENTIN 100 MG CAP PO SCH (22:35)
[2020-01-01] MEDS: MELATONIN 3 MG TAB PO SCH (22:36)
[2020-01-01] MEDS: LORazepam 1 MG TAB PO PRN (23:25)
[2020-01-02] MEDS: D5W AND LACTATED RINGERS 1,000 ML IV SCH ×2 (01:23→17:54)
[2020-01-02] MEDS: MoRPHine SULFATE 2 MG/ML CARP IV PRN ×2 (06:38→20:14)
[2020-01-02 07:30] LABS: Basophils # (auto) 0.02 K/uL (0-0.2); Basophils % (auto) 0.1 %; Eosinophils # (auto) 0.05 K/uL (0-0.5); Eosinophils % (auto) 0.3 %; Hematocrit (blood only) 45.8 % (42-52); Hemoglobin 15.1 g/dL (14.0-18.0); Immature Granulocytes # (auto) 0.05 K/uL (0.00-0.02); Immature Granulocytes % (auto) 0.3 %; Lymphocytes # (auto) 1.23 K/uL (1.2-3.4); Lymphocytes % (auto) 8.3 %; Mean Corpuscular Hemoglobin 31.9 pg (25-34); Mean Corpuscular Volume 96.6 fL (80-100); Mean Platelet Volume 10.3 fL (7.4-10.4); Monocytes # (auto) 1.72 K/uL (0.11-0.59); Monocytes % (auto) 11.6 %; Neutrophils # (auto) 11.77 K/uL (1.4-6.5); Neutrophils % (auto) 79.4 %; Platelet Count 181 K/uL (130-400); RDW Coefficient of Variation 13.7 % (11.5-14.5); Red Blood Count 4.74 M/uL (4.7-6.1); White Blood Count 14.84 K/uL (4.8-10.8)
[2020-01-02 08:08] LABS: Albumin Level 2.9 gm/dl (3.4-5.0); BUN Creatinine Ratio 40.6 (10-20); Bilirubin Direct 0.2 mg/dl (0-0.2); Calcium 9.1 mg/dl (8.5-10.1); Creatinine Clr Calc Pharmacy 54.5 ml/min; Est GFR (African American) 83.8; Est GFR (Non-African American) 72.3
[2020-01-02 08:11] LABS: Bilirubin,Total 0.8 mg/dl (0.2-1)
[2020-01-02] MEDS: GABAPENTIN 100 MG CAP PO SCH ×2 (09:22→20:12)
[2020-01-02] MEDS: LORATADINE 10 MG TAB PO SCH (09:23)
[2020-01-02] MEDS: ASCORBIC ACID 500 MG TAB PO SCH ×2 (09:23→20:13)
[2020-01-02] MEDS: ZINC SULFATE 220 MG CAPSULE PO SCH (09:23)
[2020-01-02] MEDS: FAMOTIDINE 20 MG TAB PO SCH (09:23)
[2020-01-02] MEDS: CITALOPRAM 20 MG TAB PO SCH (09:23)
[2020-01-02] MEDS: CHOLECALCIFEROL 1,000 UNITS 25 MCG TAB PO SCH (09:23)
[2020-01-02] MEDS: DOCUSATE SODIUM 100 MG CAP PO SCH ×2 (09:31→20:14)
[2020-01-02] MEDS: LORazepam 1 MG TAB PO PRN ×2 (09:44→19:43)
[2020-01-02] MEDS: FINASTERIDE 5 MG TAB PO SCH (11:33)
[2020-01-02] MEDS ORDERED: BUPIVACAINE 0.5 % 5 MG/1 ML PF 10ML VIAL ONE ×2 (13:47→13:48)
[2020-01-02] MEDS ORDERED: ATROPINE SULFATE 0.1 MG/ML 10ML SYR IV PRN (14:04)
[2020-01-02] MEDS ORDERED: ONDANSETRON INJ 2 MG/ML 2 ML VIAL IV PRN (14:04)
[2020-01-02] MEDS ORDERED: ePHEDrine sulfate 50 MG/ML AMP IV PRN (14:04)
[2020-01-02] MEDS ORDERED: fentaNYL citrate 100 MCG/2 ML VIAL IV PRN (14:04)
[2020-01-02] MEDS ORDERED: MIDAZOLAM HCL 1 MG/ML 2ML VIAL ONE (14:07)
[2020-01-02] MEDS ORDERED: ceFAZolin 2000MG 2,000 MG/15 ML SYR IV SCH (14:30)
[2020-01-02] MEDS ORDERED: TRANEXAMIC ACID / 0.7% NACL 1,000 MG/100 ML BAG IV SCH (14:30)
--- NOTE | 2020-01-02 14:36 | History & Physical Bridge Note ---
Date of Service January 02, 2020 History & Physical Bridge Note I have examined the patient, reviewed the History & Physical and in the interval since the performance of the History & Physical I have noted the following changes of clinical significance: no changes noted. Known COVID-19+ rapid test. Discussed implications with Libertad, who confirmed desire to proceed with LEFT HIP CEMENTED BIPOLAR HEMIARTHROPLASTY. Left hip was initialized. Patient agreed that he had pain in the left hip.
[2020-01-02] MEDS ORDERED: BUPIVACAINE 0.25% 30 ML VIAL ONE (14:37)
[2020-01-02] MEDS ORDERED: EPINEPHrine INJ 1 MG/ML AMP ONE (14:38)
--- NOTE | 2020-01-02 17:14 | Operative Report ---
PG Post Operative Report Pre & Post Diagnosis Operation Date: 01/02/20 10:30 Pre-Op Diagnosis: Left Hip Fracture Post-Op Diagnosis: Left Hip Fracture I identified the patient and participated in the time-out.: Yes Procedure Operation Date: 01/02/20 10:30 Actual Procedures p Left Bipolar Hip Hemiarthroplasty(Left) - Soham Williamson MD Surgeon Soham Williamson MD Laundry Tech Jj Cristina PA-C Estimated Blood Loss 150 Findings See Below There was a femoral neck fracture that extended towards the calcar. A 1 cm neck cut was made. The size 10 broach had good purchase and the 11 broach would not advance far enough. A size 7 stem was chosen, with +3.5 mm neck, with 28 mm head and 51 mm bipolar shell. Specimens Femoral head sent for specimen Anesthesia Type MAC Spinal Regional Complications none Disposition Accompanied Patient To Recovery: Yes Disposition: Recovery Room Indications 84-year-old male sustained a fall in an undetermined time while at rehabilitation. He presented to the emergency room with inability to walk and left hip pain. Imaging work-up revealed a displaced femoral neck fracture. I discussed his overall management with his who is the power of transactional attorney. Discussed the risks and benefits of surgery for the femoral neck fracture. I recommended hemiarthroplasty so the may return to ambulation and reduce pain. The risks and benefits were reviewed in detail. The risk we discussed included a limited infection, neurovascular, arthrofibrosis, need for repeat or revision procedures, hip instability, leg length discrepancy, blood clots, pain symptoms, and complications related anesthesia. She has proper questions, demonstrated understanding, left proceed with surgery. Informed consent was obtained by telephone given COVID-19 visitor restrictions. Description of Procedure On the day of surgery, the patient was evaluated in the preoperative holding area with informed consent was reviewed and confirmed by the patient. In addition, I telephoned his , [place], to confirm for the day of surgery check. The the operative extremity was identified by the patient and then signed by myself. She was then turned over anesthesia. Anesthesia took to the operating place upon the or table where sedation was induced. She was then positioned for regional spinal anesthesia. The spinal was placed and had excellent effect. The patient was then positioned for surgery in the lateral decubitus position. All bony prominences were well-padded. A Stulberg positioner was used to hold the pelvis firmly in the lateral decubitus position. The operative extremity was then prepped and draped in usual sterile fashion. Surgical timeout was called by the circulating nurse and verified by all present. Laterality was confirmed and equipment was available and functional. Antibiotics had been infused. Surgery was initiated by creating a standard posterior approach to the hip with a sharp incision over the greater trochanter measuring at least 10 cm. Dissection was carried out using Bovie electrocautery for hemostasis. Skin rakes were used to assist with retracting the skin layers. The fascia was then identified and exposed using a Tapia. We marked the midpoint to plan for a accurate repair of the IT band. Then used a 10 blade to incise to the IT band and carried up into the muscular tissues of the gluteus abdirizak. We spread in line with the raphe and carried the opening of the fascia down distally to approximately the gluteal sling. The Charnley self-retaining retractor was then placed to hold open the fascial incision. We then internally rotated the hip and exposed the bursa which was taken down using the Bovie. We exposed the short external rotators and the piriformis tendon which was identified. We then tagged the piriformis and short external hip rotators with separate Ti-Cron sutures. We then used a Bovie to take down the piriformis and short external rotators with caution for the nearby sciatic nerve. We internally rotated the hip to expose the hip capsule we removed soft tissue by scraping with a lap sponge. Then performed a capsulotomy in a T-shaped fashion across the base of the neck and extending along the course of the neck. We tacked the corners with 0 Ethibond sutures. The femoral neck fracture was then exposed. The hematoma was evacuated. The neck cut was then plan using the proprietary template from [employer]. Bovie electrocautery was used to socrates the planned neck cut approximately 1 fingerbreadth above the lesser trochanter. Sagittal saw was then used to complete this cut. We then used a rongeur to to remove excess bone on the lateral aspect of the femoral neck. We then worked to remove the femoral head first using a corkscrew and next using the tenaculum. We did have to rotate this to put tension of the ligament teres and then resected using a Bovie. Evaluated the acetabulum. The cartilage was in good condition. We did remove some excess capsular tissue in the most inferior aspect to ensure we did not have tissue blocking our reduction. Adequate hemostasis was achieved. We then sized the acetabulum using the ball shaped sizers. We had a good suction fit and fill using a 44 template. We plan for the 44 which gave us more neck length options. The Charnley retractor was then removed. The femoral trochanteric region was then exposing the femoral retractors. The double foot retractor was placed under the femoral neck. Sharp Hohmann was placed behind the abductor sling. This exposed the entrance to the femoral canal well. We used a binder and box builder to remove excess lateral femoral neck and access the intertrochanteric region. We then used a canal finder to access the canal. The lateralizing reamer was then placed into this canal and used to remove excess bone from the lateral aspect of the greater trochanter to ensure no induced varus. We then began our broach sequence. A size 8 broach was then used to initiate and find the canal. This was sunk easily. We then moved sequentially from a 9-10 to an 11 broach. The 11 broach did not advance all the way, so the 10 broach was replaced. This had adequate fill and fit. We used the broach to rasp the lateral aspect of our canal entrance. We then sunk the [address] for trialing. We put on a standard neck and 51 head. This appeared to be an adequate fit however the leg length was slightly shorter. For that reason we placed a +3.5 mm trial neck. This had adequate religious of leg length and excellent stability. Can externally rotate the foot in full extension approximately 30 degrees. Hip flexed past 90 with good stability and internally rotated approximately 50 degrees before liftoff inside the acetabulum. There was excellent mid flexion stability. We then removed our trial implants and began our canal preparation. After thorough pulse lavage of the canal. We placed a tampon suction device to clear the canal. We then thoroughly irrigated the acetabulum. We then placed a moist sponge in the acetabulum to protect it from debris and cement. Then begin her cement preparation on the back table. Two bags of cement were prepared with suction. After 1-1/2 minutes of mixing, it was ready for use. Then loaded the cement gun and begin a retrograde fill of the canal after removal of the tampon suction device. We filled the canal in its entirety until the gun was pushed back due to cement pressure once it filled the entire canal digital pressure was used to pressurize the cement in the canal. We then placed a small amount of cement near the centralizer on the stem. We then placed the stem down in the canal and use the positioner device to ensure appropriate rotation. We then ensured the implant was down to the collar set on the calcar. We then held firm pressure which was motionless until the cement cured. All extraneous cement debris was then scraped out with a curette and hemostat to ensure no loose debris. Once the cement had cured on the back table and the stem appeared to be well- seated and cured we began to thoroughly irrigate the surgical site with bacitracin impregnated pulse lavage. The trial neck and head components were then placed on the implanted stem for final check. Stability was maintained. The final implants were then loaded onto the trunnion and tapped into place to secure the Schilling taper. The hip was then reduced. It was taken through another trial motion appeared to be stable with the same parameters. We then thoroughly irrigated the surgical site. We then began our closing sequence. This involve repair of her capsule layers using side to side repair in [id number] fashion of her longitudinal cut. We then tied the previous tagging sutures in the capsular corners together firmly. This repaired the back wall of the capsule well. A free needle passer tagging sutures from the piriformis and short external rotators back to the anatomic insertion by pushing through the bone and soft tissue with a free needle. The suture tails were then tied together to complete our repair. We irrigated once again thoroughly. We then positioned the hip in anatomic position and began closure of the IT band and fascial layer. For this we use #1 PDS suture in a running and interrupted fashion. Then thoroughly irrigated once again. We then closed the fatty layer using interrupted #1 Vicryl suture in the deep fascial layers followed by interrupted 2-0 Polysorb suture in the subcuticular layer. The final skin closure was performed with ovi. The wound was then cleansed and dressed with sterile Xeroform, sterile gauze, and ABD. Foam tape was used to hold the dressing. The patient tolerated procedure well, and awoke from anesthesia without complication in the operating room. The patient was transferred to the hospital bed with an abduction pillow in place, and tranferred to recovery in stable condition. Disposition: The patient will be weightbearing as tolerated and begin physical therapy as soon as possible. There should be 24 hours antibiotic prophylaxis. We will use routine DVT prophylaxis consisting of Lovenox while inpatient and likely transition to oral aspirin therapy. We will get postoperative x-ray today. He will remain inpatient until next level of care to determine the PT/OT evaluation and case management. I attest to the content of the Intraoperative Record and any orders documented therein. Any exceptions are noted below.
[2020-01-02] MEDS: MELATONIN 3 MG TAB PO SCH (20:08)
[2020-01-02] MEDS: DOCUSATE SODIUM/SENNA 50/8.6MG TAB PO SCH (20:09)
[2020-01-02] MEDS: TAMSULOSIN HCL 0.4 MG CAP PO SCH (20:11)
[2020-01-02] MEDS: ATORVASTATIN 40 MG TAB PO SCH (20:12)
[2020-01-02] MEDS: ceFAZolin 1000MG 1,000 MG/7.5 ML SYR IV SCH (22:33)
[2020-01-02] MEDS: traZODone HCL 50 MG TAB PO PRN (22:33)
--- NOTE | 2020-01-02 23:12 | Hospitalist Progress Note ---
Date of Service January 02, 2020 Assessment & Plan (1) Closed fracture of left hip: Patient s/p fall on 12/19, presumably suffered fracture of left hip during that time. He is minimally verbal secondary to dementia, unable to provide history. NV intact. He has history of ischemic heart disease, CAD s/p CABG. EKG with suggestion of old ischemic events - no active ischemia. Unable to assess functional capacity given patient's underlying dementia and recent immobility. He does not have a known history of CHF or cerebral vascular disease. No history of DM or CKD. Other medical issues are seemingly stable. Per RCRI criteria patient is Class I risk (1 point for history of ischemic heart disease) correlating with 6% perioperative risk for MACE. -Patient will be having surgery later today. (2) COVID-19: Patient with rapid Covid-19 antigen testing performed in the ER prior to admission and found to be POSITIVE. No report of Covid-symptoms prior to arrival. Patient is afebrile, HD stable, no respiratory distress. He is saturating well on room air at 98%. CXR unremarkable for acute pulmonary process. -Admit to medical -Maintain isolation precautions - airborne and contact -Check inflammatory markers - which are elevated. -No indication for treatment with Dexamethasone or Remdesivir at this time as patient is not currently hypoxic (>94% on room air) -Continue patients home vitamin supplementation - Zinc, Vitamin C and Vitamin D -Continue patient's home Pepcid -Tylenol PRN (3) CAD (coronary artery disease): Chronic. Stable. Patient with history of CABG. He follows with [facility] - last seen by Dr. Ny on 10/09/19. At that time there was no mention of anginal-type chest discomfort or anginal equivalents. He was noted to have persistent left sided chest pain secondary to post-herpetic neuralgia -Continue Atorvastatin -Hold Lisinopril in preoperative setting -No ASA listed on home medications (4) Hypercholesteremia: Chronic. Stable -Continue Atorvastatin (5) BPH (benign prostatic hyperplasia): Chronic. Lang placed in ER -Continue Flomax and Finasteride (6) Depression: Chronic. Stable -Continue Citalopram (7) Hypertension: Chronic. Stable -Hold Lisinopril in preoperative period -Continue to monitor F/E/N - D5LR at 80mL/hr after midnight, hypernatremia as above, monitor electrolytes, NPO Ppx - SCDs. Patient is at increased risk for thromboembolism given Covid-19 positivity Code - Full Admission and Anticipated Discharge Date Admission Date: January 01, 2020 Subjective Patient is a poor historian. Does not verbalize compliants. Trying to remove mittens. Review of Systems Review of Systems: Unobtainable due to cognitive status Physical Exam Physical Exam: General: frail, elderly patient resting comfortably, NAD, minimally verbal Skin: warm, dry, intact, no rashes or lesions HEENT: NC/AT, PERRL, neck supple, trachea midline, no LAD, no thyromegaly, no JVD Heart: +S1/S2, regular, no m/r/g Lungs: equal air entry bilaterally, no rales/rhonchi/wheezes Abd: +BS, soft, NT/ND, no masses/organomegaly/ascites Ext: warm, 2+ pulses in UE/LE bilaterally, no clubbing/cyanosis or edema, soft mitt restraints on bilateral UEs, LLE shortened and externally rotated, tender to palpation over hip, no ecchymosis Neuro: nonfocal Results & Data Results & Data ([facility]) Vital Signs (Past 12 Hours) Vital Signs Temp Pulse Pulse Resp BP BP BP 01/02/20 23:10 36.5 C 83 17 132/58 L 01/02/20 21:00 01/02/20 19:17 96 H 18 158/89 H 01/02/20 19:00 87 18 158/89 H 01/02/20 18:30 91 H 18 133/80 01/02/20 18:15 85 19 138/108 H 01/02/20 18:00 83 14 128/68 01/02/20 17:15 36.9 C 82 18 133/78 01/02/20 17:05 82 18 124/72 01/02/20 16:59 36.7 C 80 16 115/64 Pulse Ox Pulse Ox 01/02/20 23:10 99 01/02/20 21:00 97 01/02/20 19:17 97 01/02/20 19:00 98 01/02/20 18:30 97 01/02/20 18:15 95 01/02/20 18:00 96 01/02/20 17:15 97 01/02/20 17:05 96 01/02/20 16:59 97 PG Care Time/CCT Total # of Minutes Spent Total Time Spent with Patient: Total time spent is greater than 50% in coordination of care (as documented) at patient's floor/unit and/or counseling patient: Coding Level of Care Code 83756 Subseq Hosp Care Lvl 2 Diagnoses Closed fracture of left hip S72.002A Encounter type: initial encounter COVID-19 U07.1 CAD (coronary artery disease) I25.10 Associated angina: without angina Coronary Disease-Associated Artery/Lesion type: [place] artery [place] vs. transplanted heart: [place] heart Hypercholesteremia E78.00 BPH (benign prostatic hyperplasia) N40.0 Lower urinary tract symptom presence: unspecified whether lower urinary t ract symptoms present Depression F32.9 Depression Type: unspecified Hypertension I10 Hypertension type: essential hypertension (1) BPH (benign prostatic hyperplasia) Lower urinary tract symptom presence: unspecified whether lower urinary tract symptoms present Qualified Code(s): N40.0 - Benign prostatic hyperplasia without lower urinary tract symptoms (2) CAD (coronary artery disease) Associated angina: without angina Coronary Disease-Associated Artery/Lesion type: [place] artery [place] vs. transplanted heart: [place] heart Qualified Code(s): I25.10 - Atherosclerotic heart disease of [place] coronary artery without angina pectoris (3) Depression Depression Type: unspecified Qualified Code(s): F32.9 - Major depressive disorder, single episode, unspecified (4) Hypertension Hypertension type: essential hypertension Qualified Code(s): I10 - Essential (primary) hypertension (5) Closed fracture of left hip Encounter type: initial encounter Qualified Code(s): S72.002A - Fracture of unspecified part of neck of left femur, initial encounter for closed fracture
[2020-01-03] MEDS: MoRPHine SULFATE 2 MG/ML CARP IV PRN ×2 (02:15→16:09)
[2020-01-03] MEDS: oxyCODONE HCL IR 5 MG TAB (IMMEDIATE RELEASE) PO PRN (05:09)
[2020-01-03] MEDS: ceFAZolin 1000MG 1,000 MG/7.5 ML SYR IV SCH (05:10)
[2020-01-03 06:46] LABS: Basophils # (auto) 0.02 K/uL (0-0.2); Basophils % (auto) 0.1 %; Eosinophils # (auto) 0.03 K/uL (0-0.5); Eosinophils % (auto) 0.2 %; Hematocrit (blood only) 46.2 % (42-52); Hemoglobin 15.1 g/dL (14.0-18.0); Immature Granulocytes # (auto) 0.06 K/uL (0.00-0.02); Immature Granulocytes % (auto) 0.4 %; Lymphocytes # (auto) 1.38 K/uL (1.2-3.4); Lymphocytes % (auto) 8.9 %; Mean Corpuscular Hgb Conc 32.7 g/dL (32-36); Mean Corpuscular Volume 97.9 fL (80-100); Mean Platelet Volume 10.5 fL (7.4-10.4); Monocytes # (auto) 0.59 K/uL (0.11-0.59); Monocytes % (auto) 3.8 %; Neutrophils # (auto) 13.41 K/uL (1.4-6.5); Neutrophils % (auto) 86.6 %; Platelet Count 187 K/uL (130-400); RDW Coefficient of Variation 13.8 % (11.5-14.5); RDW Standard Deviation 49.5 fL (36.4-46.3); Red Blood Count 4.72 M/uL (4.7-6.1); White Blood Count 15.49 K/uL (4.8-10.8)
--- NOTE | 2020-01-03 06:58 | Anesthesiology Progress Note ---
Date of Service January 03, 2020 Anesthesia Post Procedure Vital Signs Vital Signs: Temp Pulse Pulse Pulse Resp BP BP 01/03/20 05:00 01/03/20 01:00 01/02/20 23:10 36.5 C 83 17 01/02/20 21:00 01/02/20 19:17 96 H 18 01/02/20 19:00 87 18 158/89 H 01/02/20 18:30 91 H 18 01/02/20 18:15 85 19 01/02/20 18:00 83 14 01/02/20 17:15 36.9 C 82 18 133/78 01/02/20 17:05 82 18 124/72 01/02/20 16:59 36.7 C 80 16 115/64 01/02/20 07:22 70 19 127/80 BP Pulse Ox Pulse Ox 01/03/20 05:00 100 01/03/20 01:00 100 01/02/20 23:10 132/58 L 99 01/02/20 21:00 97 01/02/20 19:17 158/89 H 97 01/02/20 19:00 98 01/02/20 18:30 133/80 97 01/02/20 18:15 138/108 H 95 01/02/20 18:00 128/68 96 01/02/20 17:15 97 01/02/20 17:05 96 01/02/20 16:59 97 01/02/20 07:22 96 Transfer of Care Handoff Completed per policy Notes Mental Status: participated in evaluation and see notes below Nausea / Vomiting: adequately controlled Pain: adequately controlled Airway Patency, RR, SpO2: stable & adequate BP & HR: stable & adequate Hydration State: stable & adequate Neuraxial Anesthesia: was administered and sensory block is resolving Anesthetic Complications: no major complications apparent Notes: Pt back to preoperative baseline with respect to dementia.
[2020-01-03 07:19] LABS: Est GFR (African American) 88.2; Est GFR (Non-African American) 76.1; Potassium 4.3 mmol/L (3.5-5.1)
[2020-01-03 07:20] LABS: Calcium 8.9 mg/dl (8.5-10.1); Creatinine Clr Calc Pharmacy 56.9 ml/min
--- NOTE | 2020-01-03 08:19 | XRay Report ---
XR hip 1V LT w pelvis CLINICAL HISTORY: IN PATIENT ROOM - A/P PELVIS and LATERAL HIP COMPARISON STUDY: Pelvis 12/20/2019. FINDINGS: Status post left hip hemiarthroplasty. The hardware is intact. No fracture or dislocation. In stable septum are in place. IMPRESSION: Status post left hip hemiarthroplasty. No evidence for hardware complication. ACT 112: Negative or not required by law. Electronically signed by: Jose Earl M.D. 01/03/2020 8:17 AM
[2020-01-03] MEDS: ZINC SULFATE 220 MG CAPSULE PO SCH (08:27)
[2020-01-03] MEDS: ENOXAPARIN INJ 40 MG/0.4 ML SYR SQ SCH (08:27)
[2020-01-03] MEDS: FINASTERIDE 5 MG TAB PO SCH (08:28)
[2020-01-03] MEDS: LORATADINE 10 MG TAB PO SCH (08:28)
[2020-01-03] MEDS: ASCORBIC ACID 500 MG TAB PO SCH ×2 (08:28→21:26)
[2020-01-03] MEDS: DOCUSATE SODIUM 100 MG CAP PO SCH ×2 (08:29→21:23)
[2020-01-03] MEDS: FAMOTIDINE 20 MG TAB PO SCH (08:29)
[2020-01-03] MEDS: CITALOPRAM 20 MG TAB PO SCH (08:29)
[2020-01-03] MEDS: GABAPENTIN 100 MG CAP PO SCH ×2 (08:29→21:28)
[2020-01-03] MEDS: CHOLECALCIFEROL 1,000 UNITS 25 MCG TAB PO SCH (08:30)
--- NOTE | 2020-01-03 10:55 | Hospitalist Progress Note ---
Date of Service January 03, 2020 Assessment & Plan (1) Closed fracture of left hip: Patient s/p fall on 12/19, presumably suffered fracture of left hip during that time. - S/p left bipolar left hip hemiarthroplasty with Dr. Williamson on 01/01 - Post-operative care per orthopedic team (2) COVID-19: Patient with rapid Covid-19 antigen testing performed in the ER prior to admission and found to be POSITIVE. No report of Covid symptoms prior to arriva l. - No indication for treatment with dexamethasone or remdesivir at this time as patient is not currently hypoxic (>94% on room air) - Supportive care (3) CAD (coronary artery disease): Chronic. Stable. Patient with history of CABG. He follows with cardiology - last seen by Dr. Ny on 10/09/19. At that time there was no mention of anginal- type chest discomfort or anginal equivalents. He was noted to have persistent left sided chest pain secondary to post-herpetic neuralgia. - Continue atorvastatin - Restart lisinopril on 01/03 - No ASA listed on home medications (4) BPH (benign prostatic hyperplasia): Chronic. Lang placed in ER. - Continue Flomax and finasteride - Remove Lang prior to discharge (5) Depression: Chronic. Stable. - Continue citalopram (6) Hypertension: Chronic. BP 160/100 today. - Restarted lisinopril on 01/02 - Continue to monitor (7) DVT prophylaxis: Lovenox 40 mg SQ daily Admission and Anticipated Discharge Date Admission Date: January 01, 2020 Subjective Unable to respond verbally. Does not follow commands. Review of Systems Review of Systems: Unobtainable due to cognitive status Physical Exam Constitutional: + acute distress, + thin and + altered mental status Eyes: EOM intact bilaterally; no conjunctival abnormality ENMT: external ear and nose normal, oropharynx normal Neck: trachea midline, no thyromegaly normal visual inspection Respiratory: normal respiratory effort, lungs clear to auscultation no respiratory distress Cardiovascular: RRR, no murmur, no edema Gastrointestinal (Abdomen): Inspection/Auscultation: abdomen normal to inspection; abdomen not distended Musculoskeletal: no cyanosis or clubbing, extremities motor strength 5/5 Skin: no rashes, warm and dry Neurologic: moves all extremities and awake Psychiatric: Orientation: + not alert and + not oriented to person Results & Data Results & Data ([facility]) Vital Signs (Past 12 Hours) Vital Signs Temp Pulse Resp BP BP Pulse Ox Pulse Ox 01/03/20 08:36 37.3 C 93 H 26 H 161/105 H 98 01/03/20 05:00 100 01/03/20 01:00 100 01/02/20 23:10 36.5 C 83 17 132/58 L 99 PG Care Time/CCT Total # of Minutes Spent Total Time Spent with Patient: Total time spent is greater than 50% in coordination of care (as documented) at patient's floor/unit and/or counseling patient: Coding Level of Care Code 93615 Subseq Hosp Care Lvl 3 Diagnoses Closed fracture of left hip S72.002A Encounter type: initial encounter COVID-19 U07.1 CAD (coronary artery disease) I25.10 Coronary Disease-Associated Artery/Lesion type: [place] artery [place] vs. transplanted heart: [place] heart Associated angina: without angina BPH (benign prostatic hyperplasia) N40.0 Lower urinary tract symptom presence: unspecified whether lower urinary tract symptoms present Depression F32.9 Depression Type: unspecified Hypertension I10 Hypertension type: essential hypertension DVT prophylaxis Z29.9 (1) Closed fracture of left hip Encounter type: initial encounter Qualified Code(s): S72.002A - Fracture of unspecified part of neck of left femur, initial encounter for closed fracture (2) CAD (coronary artery disease) Coronary Disease-Associated Artery/Lesion type: [place] artery [place] vs. transplanted heart: [place] heart Associated angina: without angina Qualified Code(s): I25.10 - Atherosclerotic heart disease of [place] coronary artery without angina pectoris (3) BPH (benign prostatic hyperplasia) Lower urinary tract symptom presence: unspecified whether lower urinary tract symptoms present Qualified Code(s): N40.0 - Benign prostatic hyperplasia without lower urinary tract symptoms (4) Depression Depression Type: unspecified Qualified Code(s): F32.9 - Major depressive disorder, single episode, unspecified (5) Hypertension Hypertension type: essential hypertension Qualified Code(s): I10 - Essential (primary) hypertension
--- NOTE | 2020-01-03 14:05 | Orthopedic Progress Note ---
Date of Service January 03, 2020 Assessment & Plan (1) Closed fracture of left hip: (2) Status post hip hemiarthroplasty: Making uncomplicated progress of postop day 1. Postoperative course will likely be complicated by his dementia. I discussed his care with his after surgery last night. He can be weightbearing and range of motion as tolerated. There should be posterior hip precautions. The abduction pillow is remain in place whenever he is in bed. DVT prophylaxis should be continued for at least 6 weeks. Can likely transition to aspirin once he is regularly ambulatory. Discontinue 24-hour postsurgical antibiotic prophylaxis today. Postop dressings remain remain in place until day 3. Dispo: After discharge he will need ovi removed at 2-3 weeks. Repeat x-rays could be delayed until 6 weeks postop. He does not necessarily need to report to the orthopedic clinic till 6 weeks after surgery, if the wound can be managed at the next level of care. Admission and Anticipated Discharge Date Admission Date: January 01, 2020 Subjective Discussed patient's status with his nurse by phone outside the [facility] [place]. Nursing reported some discomfort overnight that was hard to discern from his baseline dementia. He had been treated by oxycodone for pain. Otherwise, no issues. Physical Exam Physical Exam: Nursing reports the dressing is clean dry and intact. The abduction pillow has been in place when in bed. SCDs are reported to be in place. He appears to be neurovascular intact. Results & Data ([facility]) Vital Signs (Past 12 Hours) Vital Signs Temp Pulse Resp BP Pulse Ox Pulse Ox 01/03/20 13:00 97 01/03/20 08:36 37.3 C 93 H 26 H 161/105 H 98 01/03/20 05:00 100 postoperative radiographs reviewed. Good sikh of leg length and no implant complications. PG Care Time/CCT Total # of Minutes Spent Total Time Spent with Patient: Total time spent is greater than 50% in coordination of care (as documented) at patient's floor/unit and/or counseling patient: Coding Level of Care Code None Diagnoses Closed fracture of left hip S72.002A Encounter type: initial encounter Status post hip hemiarthroplasty Z96.649 (1) Closed fracture of left hip Encounter type: initial encounter Qualified Code(s): S72.002A - Fracture of unspecified part of neck of left femur, initial encounter for closed fracture
[2020-01-03] MEDS: DOCUSATE SODIUM/SENNA 50/8.6MG TAB PO SCH (21:23)
[2020-01-03] MEDS: MELATONIN 3 MG TAB PO SCH (21:24)
[2020-01-03] MEDS: ATORVASTATIN 40 MG TAB PO SCH (21:25)
[2020-01-03] MEDS: TAMSULOSIN HCL 0.4 MG CAP PO SCH (21:26)
[2020-01-03] MEDS: QUEtiapine FUMARATE 25 MG TABLET PO PRN (21:27)
--- NOTE | 2020-01-03 21:38 | Electrocardiogram Report ---
Test Reason : Blood Pressure : / mmHG Vent. Rate : 079 BPM Atrial Rate : 079 BPM P-R Int : 172 ms QRS Dur : 082 ms QT Int : 398 ms P-R-T Axes : 066 -68 061 degrees QTc Int : 456 ms Normal sinus rhythm with sinus arrhythmia Left axis deviation Inferior infarct , age undetermined Anterior infarct , age undetermined Abnormal ECG When compared with ECG of 26-MAR-2019 11:54, Anterior infarct is now Present Confirmed by Cornelio Lopez ([id number]) on 01/03/2020 9:37:59 PM Referred By: REFERRED SELF Confirmed By:Cornelio Lopez
[2020-01-04 06:47] LABS: Hematocrit (blood only) 45.6 % (42-52); Hemoglobin 14.8 g/dL (14.0-18.0); Mean Corpuscular Hemoglobin 31.6 pg (25-34); Mean Corpuscular Hgb Conc 32.5 g/dL (32-36); Mean Corpuscular Volume 97.4 fL (80-100); Mean Platelet Volume 10.7 fL (7.4-10.4); Platelet Count 170 K/uL (130-400); RDW Coefficient of Variation 14.1 % (11.5-14.5); RDW Standard Deviation 50.2 fL (36.4-46.3); Red Blood Count 4.68 M/uL (4.7-6.1); White Blood Count 13.13 K/uL (4.8-10.8)
[2020-01-04 07:14] LABS: Calcium 9.1 mg/dl (8.5-10.1); Creatinine Clr Calc Pharmacy 60.9 ml/min; Est GFR (African American) 92.3; Est GFR (Non-African American) 79.6; Magnesium 2.3 mg/dl (1.8-2.4); Potassium 3.9 mmol/L (3.5-5.1)
[2020-01-04] MEDS: oxyCODONE HCL IR 5 MG TAB (IMMEDIATE RELEASE) PO PRN ×2 (07:59→18:09)
[2020-01-04] MEDS: GABAPENTIN 100 MG CAP PO SCH ×2 (08:00→20:02)
[2020-01-04] MEDS: LORATADINE 10 MG TAB PO SCH (08:01)
[2020-01-04] MEDS: CITALOPRAM 20 MG TAB PO SCH (08:01)
[2020-01-04] MEDS: FINASTERIDE 5 MG TAB PO SCH (08:02)
[2020-01-04] MEDS: lisinopril 5 MG TAB PO SCH (08:02)
[2020-01-04] MEDS: CHOLECALCIFEROL 1,000 UNITS 25 MCG TAB PO SCH (08:02)
[2020-01-04] MEDS: FAMOTIDINE 20 MG TAB PO SCH (08:02)
[2020-01-04] MEDS: ASCORBIC ACID 500 MG TAB PO SCH ×2 (08:02→20:04)
[2020-01-04] MEDS: ZINC SULFATE 220 MG CAPSULE PO SCH (08:02)
[2020-01-04] MEDS: ENOXAPARIN INJ 40 MG/0.4 ML SYR SQ SCH (08:03)
[2020-01-04] MEDS: DOCUSATE SODIUM 100 MG CAP PO SCH ×2 (08:04→20:18)
[2020-01-04] MEDS: MoRPHine SULFATE 2 MG/ML CARP IV PRN ×2 (13:37→15:39)
[2020-01-04] MEDS ORDERED: NORMOSOL-R 500 ML IV ONE (14:16)
--- NOTE | 2020-01-04 14:16 | Hospitalist Progress Note ---
Date of Service January 04, 2020 Assessment & Plan (1) Closed fracture of left hip: Patient s/p fall on 12/19, presumably suffered fracture of left hip during that time. - S/p left bipolar left hip hemiarthroplasty with Dr. Williamson on 01/01 - Post-operative care per orthopedic team (2) COVID-19: Patient with rapid Covid-19 antigen testing performed in the ER prior to admission and found to be POSITIVE. No report of Covid symptoms prior to arriva l. - No indication for treatment with dexamethasone or remdesivir at this time as patient is not currently hypoxic (>94% on room air) - Supportive care (3) Dementia: Discussed with via telephone on 01/02. He was actually in [facility] until 12/2019 when he fell down some steps. He was sent to [facility] for rehab. On 12/19, he fell again at [facility] and was seen in the ED. He had a skull fracture (right frontotemporal calvarial fracture), but his did not want any surgical intervention. His reports that that, he has gone downhill. - Presently non-verbal (4) CAD (coronary artery disease): Chronic. Stable. Patient with history of CABG. He follows with cardiology - last seen by Dr. Ny on 10/09/19. At that time there was no mention of anginal- type chest discomfort or anginal equivalents. He was noted to have persistent left sided chest pain secondary to post-herpetic neuralgia. - Continue atorvastatin - Restarted lisinopril on 01/03 - No ASA listed on home medications (5) BPH (benign prostatic hyperplasia): Chronic. Lang placed in ER. - Continue Flomax and finasteride - Remove Lang prior to discharge (6) Depression: Chronic. Stable. - Continue citalopram (7) Hypertension: Chronic. BP is 120/80 today. - Restarted lisinopril on 01/02 - Continue to monitor (8) DVT prophylaxis: Lovenox 40 mg SQ daily Admission and Anticipated Discharge Date Admission Date: January 01, 2020 Subjective Only moans with verbal or physical stimulus. Review of Systems Review of Systems: Unobtainable due to cognitive status Physical Exam Constitutional: WD/WN, vitals as above + acute distress, + thin and + altered mental status Eyes: EOM intact bilaterally; no conjunctival abnormality ENMT: external ear and nose normal, oropharynx normal Neck: trachea midline, no thyromegaly normal visual inspection Respiratory: normal respiratory effort, lungs clear to auscultation no respiratory distress Cardiovascular: RRR, no murmur, no edema Gastrointestinal (Abdomen): Inspection/Auscultation: abdomen normal to inspection; abdomen not distended Musculoskeletal: no cyanosis or clubbing, extremities motor strength 5/5 Extremities: + extremities abnormal to inspection (Bandage on left hip) Skin: no rashes, warm and dry Neurologic: moves all extremities and awake Psychiatric: Orientation: + not alert and + not oriented to person Results & Data Results & Data ([facility]) Vital Signs (Past 12 Hours) Vital Signs Temp Pulse Resp BP BP Pulse Ox Pulse Ox 01/04/20 12:00 99 01/04/20 11:36 36.8 C 95 H 18 123/80 96 01/04/20 07:08 37.0 C 100 H 20 176/95 H 97 01/04/20 05:18 36.5 C 89 18 134/79 95 01/04/20 05:00 99 PG Care Time/CCT Total # of Minutes Spent Total Time Spent with Patient: Total time spent is greater than 50% in coordination of care (as documented) at patient's floor/unit and/or counseling patient: Coding Level of Care Code 52171 Subseq Hosp Care Lvl 2 Diagnoses Closed fracture of left hip S72.002A Encounter type: initial encounter COVID-19 U07.1 Dementia F03.90 CAD (coronary artery disease) I25.10 Coronary Disease-Associated Artery/Lesion type: [place] artery [place] vs. transplanted heart: [place] heart Associated angina: without angina BPH (benign prostatic hyperplasia) N40.0 Lower urinary tract symptom presence: unspecified whether lower urinary tract symptoms present Depression F32.9 Depression Type: unspecified Hypertension I10 Hypertension type: essential hypertension DVT prophylaxis Z29.9 (1) Closed fracture of left hip Encounter type: initial encounter Qualified Code(s): S72.002A - Fracture of unspecified part of neck of left femur, initial encounter for closed fracture (2) CAD (coronary artery disease) Coronary Disease-Associated Artery/Lesion type: [place] artery [place] vs. transplanted heart: [place] heart Associated angina: without angina Qualified Code(s): I25.10 - Atherosclerotic heart disease of [place] coronary artery without angina pectoris (3) BPH (benign prostatic hyperplasia) Lower urinary tract symptom presence: unspecified whether lower urinary tract symptoms present Qualified Code(s): N40.0 - Benign prostatic hyperplasia without lower urinary tract symptoms (4) Depression Depression Type: unspecified Qualified Code(s): F32.9 - Major depressive disorder, single episode, unspecified (5) Hypertension Hypertension type: essential hypertension Qualified Code(s): I10 - Essential (primary) hypertension
[2020-01-04] MEDS: DOCUSATE SODIUM/SENNA 50/8.6MG TAB PO SCH (20:00)
[2020-01-04] MEDS: MELATONIN 3 MG TAB PO SCH (20:01)
[2020-01-04] MEDS: ATORVASTATIN 40 MG TAB PO SCH (20:02)
[2020-01-04] MEDS: TAMSULOSIN HCL 0.4 MG CAP PO SCH (20:03)
[2020-01-04] MEDS: traZODone HCL 50 MG TAB PO PRN (20:05)
[2020-01-05 06:00] LABS: Hematocrit (blood only) 46.2 % (42-52); Hemoglobin 14.9 g/dL (14.0-18.0); Mean Corpuscular Hemoglobin 31.9 pg (25-34); Mean Corpuscular Hgb Conc 32.3 g/dL (32-36); Mean Corpuscular Volume 98.9 fL (80-100); Mean Platelet Volume 10.4 fL (7.4-10.4); Platelet Count 199 K/uL (130-400); RDW Coefficient of Variation 14.2 % (11.5-14.5); Red Blood Count 4.67 M/uL (4.7-6.1); White Blood Count 16.14 K/uL (4.8-10.8)
--- NOTE | 2020-01-05 06:13 | Communication Note ---
Date of Service: January 05, 2020 Alerted pt had progressively increasing O2 requirements. After obtaining HX differential to include sedation 2/2 to pain medication vs exacerbation of COVID vs new onset infection. Pt maintained satuartions overnight, a cxr was obtained. CXR did not demonstrate significant changes when compared to prior imaging, potentially worsening of atelectasis in the LLL. Given pt remained stable on 4 L of O2 and no significant changes on cxr and the high likelihood of oversedation differed further intervention to the day team and asked the nuse to monitor the pts vitals closely and alert e to any changes. Case was discussed with my attending. Levon Michel [facility] Resident Resident Activity Tracking Resident Involvement: Resident Care Provided Care Provided: Adult Hospital Medicine
[2020-01-05] MEDS ORDERED: VANCOMYCIN HCL 1,000 MG/270 ML BAG IV STA (06:18)
[2020-01-05] MEDS ORDERED: VANCOMYCIN CONSULT ACTIVE PRN (06:18)
[2020-01-05] MEDS ORDERED: PIPERACILL/TAZOBAC CONSULT ACTIVE PRN (06:18)
[2020-01-05 06:23] LABS: BUN Creatinine Ratio 31.3 (10-20); Calcium 8.9 mg/dl (8.5-10.1); Creatinine Clr Calc Pharmacy 55.7 ml/min; Est GFR (African American) 85.9; Est GFR (Non-African American) 74.2; Magnesium 2.3 mg/dl (1.8-2.4)
[2020-01-05] MEDS ORDERED: VANCOMYCIN HCL 1,500 MG in SODIUM CHLORIDE 0.9% 500 ML IV ONE (06:30)
[2020-01-05] MEDS ORDERED: PIPERACILLIN/TAZOBACTAM 3.375 GM in DEXTROSE 5% 100 ML IV ONE (06:30)
--- NOTE | 2020-01-05 07:35 | XRay Report ---
SINGLE VIEW CHEST CLINICAL HISTORY: Hypoxia FINDINGS: An AP, portable, upright chest radiograph is compared to study dated 01/01/2020 and correla alonzo with chest CT dated 03/13/2009. The the patient is status post midline sternotomy. The heart is mil dly enlarged noting atherosclerotic calcification of the thoracic aorta. The pulmonary vasculature is noncongested. There is dense airspace consolidation at the left lung base and a small left pleural e ffusion. Scarring/atelectasis is seen at the right lung base. Apical scarring is observed. No pneumot horax is seen. The skeletal structures are osteopenic. The bony thorax is grossly intact. IMPRESSION: 1. Mild cardiac enlargement without radiographic evidence of congestive failure. 2. There is dense airspace consolidation at the left lung base which is new from 01/01/2020. Correlat e clinically for evidence of pneumonia/aspiration pneumonitis. Radiographic follow-up to resolution i s recommended. 3. Small left pleural effusion. ACT 112: Negative or not required by law. Electronically signed by: Grupo Mcpherson M.D. 01/05/2020 7:34 AM
[2020-01-05] MEDS: CITALOPRAM 20 MG TAB PO SCH (07:54)
[2020-01-05] MEDS: FAMOTIDINE 20 MG TAB PO SCH (07:54)
[2020-01-05] MEDS: FINASTERIDE 5 MG TAB PO SCH (07:54)
[2020-01-05] MEDS: lisinopril 5 MG TAB PO SCH (07:54)
[2020-01-05] MEDS: GABAPENTIN 100 MG CAP PO SCH (07:55)
[2020-01-05] MEDS: ENOXAPARIN INJ 40 MG/0.4 ML SYR SQ SCH (07:55)
[2020-01-05] MEDS: LORATADINE 10 MG TAB PO SCH (08:02)
[2020-01-05] MEDS: DOCUSATE SODIUM 100 MG CAP PO SCH (08:03)
[2020-01-05] MEDS: ASCORBIC ACID 500 MG TAB PO SCH (08:03)
[2020-01-05] MEDS: ZINC SULFATE 220 MG CAPSULE PO SCH (08:03)
[2020-01-05] MEDS: CHOLECALCIFEROL 1,000 UNITS 25 MCG TAB PO SCH (08:03)
--- NOTE | 2020-01-05 08:47 | Orthopedic Progress Note ---
Date of Service January 05, 2020 Assessment & Plan (1) Status post hip hemiarthroplasty: POD3 PT/OT: If able to participate, weightbearing as tolerated, posterior hip precautions. Can be out of bed w assist if able. The abduction pillow is remain in place whenever he is in bed. DVT prophylaxis - Lovenox 40 daily x 6 weeks, or as needed for COVID-19 tx May begin prn dressing changes or as needed/at time of hygeine. Dispo: After discharge he will need ovi removed at 2-3 weeks. Repeat x-rays could be delayed until 6 weeks postop. He does not necessarily need to report to the orthopedic clinic till 6 weeks after surgery, if the wound can be managed at the next level of care. Admission and Anticipated Discharge Date Admission Date: January 01, 2020 Subjective Discussed status with nursing - appears more SOB and further disoriented. Some coughing. No concerns with hip. Physical Exam Physical Exam: Nursing reports the dressing is clean dry and intact. The abduction pillow has been in place when in bed. SCDs are reported to be in place. He appears to be neurovascular intact. Results & Data ([facility]) Vital Signs (Past 12 Hours) Vital Signs Temp Pulse Resp BP Pulse Ox Pulse Ox 01/05/20 07:49 36.5 C 98 H 18 122/86 93 01/05/20 04:00 90 01/05/20 00:00 92 01/04/20 23:25 36.9 C 105 H 16 102/67 93 H & H 01/01/20 01/02/20 01/03/20 Range/Units 19:19 06:26 05:33 Hgb 16.2 15.1 15.1 (14.0-18.0) g/dL Hct 47.9 45.8 46.2 (42-52) % 01/04/20 01/05/20 Range/Units 05:35 05:34 Hgb 14.8 14.9 (14.0-18.0) g/dL Hct 45.6 46.2 (42-52) % Coagulation 01/01/20 Range/Units 19:19 INR 1.1 (0.9-1.1) PG Care Time/CCT Total # of Minutes Spent Total Time Spent with Patient: Total time spent is greater than 50% in coordination of care (as documented) at patient's floor/unit and/or counseling patient: Coding Level of Care Code None Diagnoses Status post hip hemiarthroplasty Z96.649
[2020-01-05] MEDS ORDERED: dexAMETHasone 6 MG in SYRINGE 0 ML IV SCH (09:00)
--- NOTE | 2020-01-05 09:10 | Pharmacy Report ---
Pharmacy Abx Initial Consult - Date of Service January 05, 2020 - Pharmacy Dosing Scope Date of Consult: 01/05/20 Consultation requested by: Dr. Levon Michel Pharmacy is consulted to initiate VANCOMYCIN/ZOSYN IV dosing therapy, order appropriate labs and adjust drug dose/frequency. - Subjective The patient is a 84 year old M admitted on 01/01/20 19:55. - Objective Height: 5 ft 10 in Weight: 67.3 kg Vital Signs (Past 12hrs): Vital Signs Temp Pulse Resp BP Pulse Ox Pulse Ox 01/05/20 07:49 36.5 C 98 H 18 122/86 93 01/05/20 04:00 90 01/05/20 00:00 92 01/04/20 23:25 36.9 C 105 H 16 102/67 93 Lab Results (24hrs): Laboratory Tests (24 Hours) 01/05/20 01/05/20 05:34 05:34 WBC 16.14 H Creatinine 0.94 Est Cr Clr Drug Dosing 55.7 - Risk Factors for Resistance * Recent stay at [facility] rehab, early December * Current hospitalization > 5 days - Assessment & Plan Assessment 84 year old M admitted with L hip fracture s/p fall. COVID + on admission, although asymptomatic. VANOCMYCIN/ZOSYN now being added, as patient's O2 requirements are steadily increasing. Unclear if this is due to COVID / new onset infection / sedation. At this time, VANCOMYIN and ZOSYN are added as Empiric therapy and will d/c in 48 hours if not extended. Plan Vancomycin IV * Loading dose: 1500mg (~22 mg/kg). * Maintenance dose: 1000mg IV (~15 mg/kg) every 12 hours. * Goal trough level for possible PNA : 15 to 20 mcg/mL * Trough level ordered for 01/07/20 @ 0800 (IF VANCOMYCIN THERAPY IS CONTINUED) * Dosing per Vancomycin AUC nomogram. Piperacillin/tazobactam * 3.375 g bolus administered over 30 minutes, then 3.375 g IV extended infusion every 8 hours for CrCl greater than 20 mL/min. Pharmacy will continue to follow and will adjust dose/frequency as necessary. Thank you.
[2020-01-05] MEDS ORDERED: PIPERACILLIN/TAZOBACTAM 3.375 GM in DEXTROSE 5% 100 ML IV SCH (12:00)
--- NOTE | 2020-01-05 13:09 | Hospitalist Progress Note ---
Date of Service January 05, 2020 Assessment & Plan (1) Aspiration into airway: Occurred overnight. Increased O2 demand after an event. - Discussed with ; he would NOT want artificial means to be kept alive. - His declined Xoom conversation or attempted visitation. She would like to mourn at home. - Will stop abx and focus on comfort. (2) Closed fracture of left hip: Patient s/p fall on 12/19, presumably suffered fracture of left hip during that time. - S/p left bipolar left hip hemiarthroplasty with Dr. Williamson on 01/01 - Post-operative care per orthopedic team (3) COVID-19: Patient with rapid Covid-19 antigen testing performed in the ER prior to admission and found to be POSITIVE. No report of Covid symptoms prior to arrival. - No indication for treatment with dexamethasone or remdesivir at this time as patient is not currently hypoxic (>94% on room air) - Supportive care (4) Dementia: Discussed with via telephone on 01/02. He was actually in [facility] until 12/2019 when he fell down some steps. He was sent to [facility] for rehab. On 12/19, he fell again at [facility] and was seen in the ED. He had a skull fracture (right frontotemporal calvarial fracture), but his did not want any surgical intervention. His reports that that, he has gone downhill. - Presently non-verbal (5) CAD (coronary artery disease): Chronic. Stable. Patient with history of CABG. He follows with cardiology - last seen by Dr. Ny on 10/09/19. At that time there was no mention of anginal- type chest discomfort or anginal equivalents. He was noted to have persistent left sided chest pain secondary to post-herpetic neuralgia. - Continue atorvastatin - Restarted lisinopril on 01/03 - No ASA listed on home medications (6) BPH (benign prostatic hyperplasia): Chronic. Lang placed in ER. - Continue Flomax and finasteride - Remove Lang prior to discharge (7) Depression: Chronic. Stable. - Continue citalopram (8) Hypertension: Chronic. BP is 120/80 today. - Restarted lisinopril on 01/02 - Continue to monitor (9) DVT prophylaxis: Lovenox 40 mg SQ daily Admission and Anticipated Discharge Date Admission Date: January 01, 2020 Subjective Only moans with verbal or physical stimulus. Review of Systems Review of Systems: Unobtainable due to cognitive status Physical Exam Constitutional: WD/WN, vitals as above + acute distress, + thin and + altered mental status Eyes: EOM intact bilaterally; no conjunctival abnormality ENMT: external ear and nose normal, oropharynx normal Neck: trachea midline, no thyromegaly normal visual inspection Respiratory: normal respiratory effort, lungs clear to auscultation no respiratory distress Cardiovascular: RRR, no murmur, no edema Gastrointestinal (Abdomen): Inspection/Auscultation: abdomen normal to inspection; abdomen not distended Musculoskeletal: no cyanosis or clubbing, extremities motor strength 5/5 Extremities: + extremities abnormal to inspection (Bandage on left hip) Skin: no rashes, warm and dry Neurologic: moves all extremities and awake Psychiatric: Orientation: + not alert and + not oriented to person Results & Data Results & Data ([facility]) Vital Signs (Past 12 Hours) Vital Signs Temp Pulse Resp BP Pulse Ox Pulse Ox 01/05/20 12:00 99 01/05/20 08:00 94 01/05/20 07:49 36.5 C 98 H 18 122/86 93 01/05/20 04:00 90 PG Care Time/CCT Total # of Minutes Spent Total Time Spent with Patient: Total time spent is greater than 50% in coordination of care (as documented) at patient's floor/unit and/or counseling patient: Coding Level of Care Code 05553 Subseq Hosp Care Lvl 3 Diagnoses Aspiration into airway T17.908A Closed fracture of left hip S72.002A Encounter type: initial encounter COVID-19 U07.1 Dementia F03.90 CAD (coronary artery disease) I25.10 Coronary Disease-Associated Artery/Lesion type: [place] artery [place] vs. transplanted heart: [place] heart Associated angina: without angina BPH (benign prostatic hyperplasia) N40.0 Lower urinary tract symptom presence: unspecified whether lower urinary tract symptoms present Depression F32.9 Depression Type: unspecified Hypertension I10 Hypertension type: essential hypertension DVT prophylaxis Z29.9 (1) Closed fracture of left hip Encounter type: initial encounter Qualified Code(s): S72.002A - Fracture of unspecified part of neck of left femur, initial encounter for closed fracture (2) CAD (coronary artery disease) Coronary Disease-Associated Artery/Lesion type: [place] artery [place] vs. transplanted heart: [place] heart Associated angina: without angina Qualified Code(s): I25.10 - Atherosclerotic heart disease of [place] coronary artery without angina pectoris (3) BPH (benign prostatic hyperplasia) Lower urinary tract symptom presence: unspecified whether lower urinary tract symptoms present Qualified Code(s): N40.0 - Benign prostatic hyperplasia without lower urinary tract symptoms (4) Depression Depression Type: unspecified Qualified Code(s): F32.9 - Major depressive disorder, single episode, unspecified (5) Hypertension Hypertension type: essential hypertension Qualified Code(s): I10 - Essential (primary) hypertension
[2020-01-05] MEDS ORDERED: ATROPINE SULFATE 1% OP SOLN 5 ML BTL SL PRN (13:13)
[2020-01-05] MEDS: WHISKEY 1 DOSE PO SCH (15:12)
[2020-01-05] MEDS: MoRPHine SULFATE 5 MG/0.25 ML UDP PO PRN ×2 (15:12→18:34)
[2020-01-05] MEDS: LORazepam 1 MG TAB SL PRN (19:47)
[2020-01-05] MEDS ORDERED: VANCOMYCIN HCL 1,000 MG in SODIUM CHLORIDE 0.9% 250 ML IV SCH (20:00)
[2020-01-06] MEDS: LORazepam 1 MG TAB SL PRN ×2 (00:52→06:01)
[2020-01-06] MEDS: MoRPHine SULFATE 5 MG/0.25 ML UDP PO PRN ×2 (03:37→22:45)
[2020-01-06] MEDS: WHISKEY 1 DOSE PO SCH (07:45)
--- NOTE | 2020-01-06 16:50 | Hospitalist Progress Note ---
Date of Service January 06, 2020 Assessment & Plan (1) Aspiration into airway: Occurred overnight on 01/03. He then had increased O2 demand after the event. Now on room air - Discussed with ; he would NOT want artificial means to be kept alive. - His declined Zoom conversation or attempted visitation. She would like to mourn at home. -Have since discontinued all abx and focus is now on comfort. -Continue Roxanol, Ativan, atropine as needed (2) Closed fracture of left hip: Patient s/p fall on 12/19, presumably suffered fracture of left hip during that time. - S/p left bipolar left hip hemiarthroplasty with Dr. Williamson on 01/01 - Post-operative care per orthopedic team They report that ovi can be removed in 2 to 3 weeks, repeat x-rays at 6 weeks postop Also recommend weightbearing as tolerated if able to participate, along with posterior hip precautions. Can be out of bed with assistance if able to. The abduction pillow is to remain in place whenever in bed. Also recommended as needed dressing changes at the time of hygiene and Lovenox 40 mg once daily x6 weeks However, with focus on comfort care, enoxaparin is not being given and he is not being asked to work with physical therapy (3) COVID-19: Patient with rapid Covid-19 antigen testing performed in the ER prior to admission and found to be POSITIVE. No report of Covid symptoms prior to arrival. - No indication for treatment with dexamethasone or remdesivir at this time as patient is not currently hypoxic (>94% on room air) - Supportive care (4) Dementia: Discussed with via telephone on 01/02. He was actually in [facility] until 12/2019 when he fell down some steps. He was sent to [facility] for rehab. On 12/19, he fell again at [facility] and was seen in the ED. He had a skull fracture (right frontotemporal calvarial fracture), but his did not want any surgical intervention. His reports that that, he has gone downhill. - Presently non-verbal (5) CAD (coronary artery disease): Chronic. Stable. Patient with history of CABG. He follows with cardiology - last seen by Dr. Ny on 10/09/19. At that time there was no mention of anginal- type chest discomfort or anginal equivalents. He was noted to have persistent left sided chest pain secondary to post-herpetic neuralgia. -Have since discontinued his home atorvastatin and lisinopril - No ASA listed on home medications (6) BPH (benign prostatic hyperplasia): Chronic. Lang placed in ER. -Have discontinued his Flomax and finasteride on CML -Consider removing Lang prior to discharge (7) Depression: Chronic. Stable. Discontinued home citalopram on BEADWORKER (8) Hypertension: Discontinued home medications on BEADWORKER (9) DVT prophylaxis: Lovenox 40 mg SQ daily has been discontinued now on BEADWORKER Disposition-discussed his care with wrapper caser-plan is for intermediate placement on hospice. Referrals have been made Admission and Anticipated Discharge Date Admission Date: January 01, 2020 Subjective Patient opens his eyes to verbal and tactile stimulus, but falls back asleep and will not answer any of my questions. He appears comfortable. Nursing reports that he took his shot of whiskey this morning, but otherwise did not eat or drink all day. Review of Systems Review of Systems: Unobtainable due to cognitive status and Unobtainable due to reduced consciousness Physical Exam Constitutional: + ill appearing and + lethargic; no acute distress Eyes: + anicteric sclerae Neck: trachea midline, no thyromegaly Respiratory: normal respiratory effort, lungs clear to auscultation Cardiovascular: RRR, no murmur, no edema Chest (Breasts): Chest: normal inspection of chest Gastrointestinal (Abdomen): normal bowel sounds, soft, nontender, no hepatosplenomegaly Musculoskeletal: Extremities: extremities normal to inspection; no cyanosis and no clubbing Skin: no rashes, warm and dry Lymphatic: no lymphedema PG Care Time/CCT Total # of Minutes Spent Total Time Spent with Patient: Total time spent is greater than 50% in coordination of care (as documented) at patient's floor/unit and/or counseling patient: Coding Level of Care Code 23254 Subseq Hosp Care Lvl 1 Diagnoses Aspiration into airway T17.908A Closed fracture of left hip S72.002A Encounter type: initial encounter COVID-19 U07.1 Dementia F03.90 CAD (coronary artery disease) I25.10 Associated angina: without angina Coronary Disease-Associated Artery/Lesion type: [place] artery [place] vs. transplanted heart: [place] heart BPH (benign prostatic hyperplasia) N40.0 Lower urinary tract symptom presence: unspecified whether lower urinary tract symptoms present Depression F32.9 Depression Type: unspecified Hypertension I10 Hypertension type: essential hypertension DVT prophylaxis Z29.9 (1) BPH (benign prostatic hyperplasia) Lower urinary tract symptom presence: unspecified whether lower urinary tract symptoms present Qualified Code(s): N40.0 - Benign prostatic hyperplasia without lower urinary tract symptoms (2) CAD (coronary artery disease) Associated angina: without angina Coronary Disease-Associated Artery/Lesion type: [place] artery [place] vs. transplanted heart: [place] heart Qualified Code(s): I25.10 - Atherosclerotic heart disease of [place] coronary artery without angina pectoris (3) Depression Depression Type: unspecified Qualified Code(s): F32.9 - Major depressive disorder, single episode, unspecified (4) Hypertension Hypertension type: essential hypertension Qualified Code(s): I10 - Essential (primary) hypertension (5) Closed fracture of left hip Encounter type: initial encounter Qualified Code(s): S72.002A - Fracture of unspecified part of neck of left femur, initial encounter for closed fracture
[2020-01-07] MEDS: LORazepam 1 MG TAB SL PRN ×2 (00:49→12:36)
[2020-01-07] MEDS: MoRPHine SULFATE 5 MG/0.25 ML UDP PO PRN ×3 (04:50→18:15)
[2020-01-07] MEDS ORDERED: VANCOMYCIN TROUGH ONE (07:30)
[2020-01-07] MEDS: WHISKEY 1 DOSE PO SCH (11:49)
--- NOTE | 2020-01-07 14:12 | Palliative Care Consultation ---
Date of Consultation January 07, 2020 Assessment & Plan (1) Palliative care encounter: I spoke with his on the phone. She understands that he is dying and confirms that comfort is primary goal at this time. We discussed signs and symptoms that he is likely to within the next day or two. She has good support and is sad but accepting as he has had a difficult course. She has been in touch with their daughter who lives in [place]. We will continue to follow and update her. Thank you for allowing us to participate in his care. (2) Pain: With immobility and recent hip fracture. Will order morphine routinely with prn dosing for breakthrough pain. (3) Anxiety: He is restless and has had delirium with opioids in the past. Will add routine ativan. History of Present Illness Reason for Consultation: Comfort care Requesting Physician: Dr. Levon Michel Attending Physician: Karla Cohen MD History of Present Illness 84 yo gentleman with functional decline over the last four months. His notes that he has had progressive dementia symptoms with increased confusion and weakness. He has had several falls including one resulting in a skull fracture and a second resulting in a left hip fracture on 12/19. He was found to be covid positive on admission and has subsequently had further decline with aspiration pneumonitis. His has indicated that he would not want to pursue aggressive interventions and has requested that the focus of his care be directed toward comfort. He is lethargic and arouses briefly. He is grimacing and restless when aroused. He has been receiving roxanol as needed for pain as well as lorazepam for anxiety and restlessness. Allergies Allergy/AdvReac Type Severity Reaction Status Date / Time bee venom protein (honey bee) Allergy Severe ANAPHYLAXIS Verified 09/16/19 10:58 hydrocodone Allergy hallucinati Verified 09/16/19 10:58 ons Home Medications Medication Instructions Recorded Confirmed Type loratadine 10 mg tablet 10 mg PO QAM 11/05/18 01/01/20 History finasteride 5 mg PO QAM 03/22/19 01/01/20 History omega-3 fatty acids [Fish Oil 1,000 mg PO QAM 03/22/19 01/01/20 History Concentrate] tamsulosin 0.4 mg PO QPM 03/25/19 01/01/20 History lisinopril 2.5 mg tablet 2.5 mg PO QAM #90 tab 05/01/19 01/01/20 Rx citalopram 20 mg tablet 20 mg PO DAILY #90 tab 06/11/19 01/01/20 Rx gabapentin 100 mg capsule 100 mg PO BID #60 cap 09/02/19 01/01/20 Rx acetaminophen 650 mg PO Q4H PRN 01/01/20 01/01/20 History ascorbic acid (vitamin C) 500 mg PO BID 01/01/20 01/01/20 History atorvastatin 80 mg PO HS 01/01/20 01/01/20 History bisacodyl 10 mg LA DAILY PRN 01/01/20 01/01/20 History cholecalciferol (vitamin D3) 2,000 unit PO DAILY 01/01/20 01/01/20 History [Vitamin D3] docusate sodium 100 mg PO BID 01/01/20 01/01/20 History famotidine 20 mg PO DAILY 01/01/20 01/01/20 History lorazepam 1 mg PO Q4H PRN 01/01/20 01/01/20 History magnesium hydroxide [Milk of 30 ml PO DAILY PRN 01/01/20 01/01/20 History Magnesia] melatonin 3 mg PO HS 01/01/20 01/01/20 History nitroglycerin [Nitrostat] 0.4 mg SUBLINGUAL DIRECTED PRN 01/01/20 01/01/20 History polyethylene glycol 3350 [Miralax] 17 g PO QDL PRN 01/01/20 01/01/20 History quetiapine [Seroquel] 25 mg PO HS PRN 01/01/20 01/01/20 History sennosides-docusate sodium 1 tab-cap PO QDL PRN 01/01/20 01/01/20 History [Senokot-S] sodium phosphates [Fleet Enema] 133 ml LA DAILY PRN 01/01/20 01/01/20 History trazodone 25 mg PO HS PRN 01/01/20 01/01/20 History zinc sulfate 220 mg PO DAILY 01/01/20 01/01/20 History Patient History Medical History Actinic keratosis Anemia Arteriosclerotic cardiovascular disease Benign colonic polyp BPH (benign prostatic hyperplasia) CAD (coronary artery disease) FOLLOWS DR. ALLAN Q 6 MONTHS Depression Herpes zoster Hypercholesterolemia Hypertension Kidney stones Lung neoplasm PT'S UNAWARE Myocardial infarction Myocardial Infarction 5 YRS AGO > [facility] > SAW DR. ALLAN THEN [facility], initial episode of care Pain in anterior left upper extremity DUE TO NEUROPATHY Sinus congestion Stress hyperglycemia owning Troponin I above reference range Surgical History H/O inguinal hernia repair History of cardiac cath 6 YRS AGO [facility] FOR CHEST PAIN > 1 STENT History of colonoscopy History of heart artery stent 1 STENT > 6 YRS AGO > DR. ALLAN @[facility] Hx of hand surgery 1996 >LEFT HAND >MIDDLE FINGER AMPUTATION Hx of vasectomy S/P CABG x 3 5 YRS AGO > [facility] > DR. WHARTON> DUE TO [place] Family History Mother Lung cancer Other Tuberculosis Denies family history of Prostate cancer Colorectal cancer Social History Smoking Status: Never smoker Age Started Using Tobacco: 13; Age Quit Using Tobacco: 50; packs per day: 1; Years Smoked: 21; Number of Years Since Quit: 36; Second Hand Exposure: No; Hx Alcohol Use: No (unable to obtain information) Hx Substance Use: No Preferred Language: Gabonese Communication Ability: Unable Hearing Ability: Use of Hearing Aid Informatics Physician Required: No Beliefs That Will Affect Care: None marital status: Current Living Situation: Spouse current occupational status: retired Feels Safe at Home: Declines to Answer Dental Care, Regularly: Yes Seatbelt Use: always Sunscreen Use: Yes Assistive Devices: Oxygen - Continuous Review of Systems Review of Systems: Unobtainable due to cognitive status [place] Symptom Assessment Scale Pain 2/3 by Pain AD Dyspnea 1/3 by RDOS Physical Exam Constitutional: + lethargic restless Respiratory: + uses accessory muscles Cardiovascular: mottling noted on knees, no edema Skin: no rashes, warm and dry PG Care Time/CCT Total # of Minutes Spent Total Time Spent with Patient: Total time spent is greater than 50% in coordination of care (as documented) at patient's floor/unit and/or counseling patient: 65 minutes with more than 50% of time spent on prognosis, symptom management and family support. Coding Level of Care Code 75823 Inpt Consult Level 3 Diagnoses Palliative care encounter Z51.5 Pain R52 Anxiety F41.9 Time Spent (min) 65
[2020-01-07] MEDS ORDERED: MoRPHine SULFATE 5 MG/0.25 ML UDP PO ONE (14:15)
[2020-01-07] MEDS ORDERED: LORazepam 1 MG/2 ML VIAL IV ONE (14:45)
--- NOTE | 2020-01-07 16:19 | Hospitalist Progress Note ---
Date of Service January 07, 2020 Assessment & Plan (1) Aspiration into airway: Possible aspiration pneumonitis occurred overnight on 01/03. He then had increased O2 demand after the event. CXR with dense LLL consolidation - Discussed with ; he would NOT want artificial means to be kept alive. - His declined Zoom conversation or attempted visitation. She would like to mourn at home. -Have since discontinued all abx and focus is now on comfort. -Continue Roxanol, Ativan, atropine as needed Appreciate Palliative Care consultation (2) Closed fracture of left hip: Patient s/p fall on 12/19, presumably suffered fracture of left hip during that time. - S/p left bipolar left hip hemiarthroplasty with Dr. Williamson on 01/01 - Post-operative care per orthopedic team They report that ovi can be removed in 2 to 3 weeks, repeat x-rays at 6 weeks postop if still living but doubtful Also recommend weightbearing as tolerated if able to participate, along with posterior hip precautions. Can be out of bed with assistance if able to. The abduction pillow is to remain in place whenever in bed. Also recommended as needed dressing changes at the time of hygiene and Lovenox 40 mg once daily x6 weeks However, with focus on comfort care, enoxaparin is not being given and he is not being asked to work with physical therapy (3) COVID-19: Patient with rapid Covid-19 antigen testing performed in the ER prior to admission and found to be POSITIVE. No report of Covid symptoms prior to arrival. - No indication for treatment with dexamethasone or remdesivir at this time as patient is not currently hypoxic (>94% on room air) - Supportive care (4) Dementia: Discussed with via telephone on 01/02 and 01/05. He was actually in [facility] until 12/2019 when he fell down some steps. He was sent to [facility] for rehab. On 12/19, he fell again at [facility] and was seen in the ED. He had a skull fracture (right frontotemporal calvarial fracture), but his did not want any surgical intervention. His reports that that, he has gone downhill. - Presently non-verbal (5) CAD (coronary artery disease): Chronic. Stable. Patient with history of CABG. He follows with cardiology - last seen by Dr. Ny on 10/09/19. At that time there was no mention of anginal- type chest discomfort or anginal equivalents. He was noted to have persistent left sided chest pain secondary to post-herpetic neuralgia. -Have since discontinued his home atorvastatin and lisinopril - No ASA listed on home medications (6) BPH (benign prostatic hyperplasia): Chronic. Lang placed in ER. -Have discontinued his Flomax and finasteride on CML (7) Depression: Chronic. Stable. Discontinued home citalopram on EAR PULL MACHINE OPERATOR (8) Hypertension: Discontinued home medications on EAR PULL MACHINE OPERATOR (9) DVT prophylaxis: Lovenox 40 mg SQ daily has been discontinued now on EAR PULL MACHINE OPERATOR Disposition-discussed his care with case assembler-plan is for [facility] hosp[facility]. Referrals have been made and is trying to figure out if financially feasible. However, his status is continuing to decompensate-not eating or drinking, hypoxic. He will likely pass away within the next 7 days Admission and Anticipated Discharge Date Admission Date: January 01, 2020 Subjective RN reports pt has been agitated and tachypneic at times today. Not eating or drinking. Palliative Care consult was ordered by overnight MD for unclear reason. Pt has his eyes open when I came to see him and appears panicked and is tachypneic. Continuous POx shows POx 84-85%. He does not respond to any of my questions. Review of Systems Review of Systems: Unobtainable due to cognitive status Physical Exam Constitutional: + ill appearing and + in distress (mild, tachypneic, appears panicked) Eyes: + anicteric sclerae Neck: trachea midline, no thyromegaly Respiratory: + tachypneic Auscultation: no crackles, no rhonchi and no wheezes Cardiovascular: Rate/Rhythm: regular rhythm and + tachycardic Chest (Breasts): Chest: normal inspection of chest Gastrointestinal (Abdomen): normal bowel sounds, soft, nontender, no hepatosplenomegaly Musculoskeletal: Extremities: extremities normal to inspection; no cyanosis and no clubbing Skin: no rashes, warm and dry Lymphatic: no lymphedema PG Care Time/CCT Total # of Minutes Spent Total Time Spent with Patient: Total time spent is greater than 50% in coordination of care (as documented) at patient's floor/unit and/or counseling patient: Coding Level of Care Code 07319 Subseq Hosp Care Lvl 1 Diagnoses Aspiration into airway T17.908A Closed fracture of left hip S72.002A Encounter type: initial encounter COVID-19 U07.1 Dementia F03.90 CAD (coronary artery disease) I25.10 Associated angina: without angina Coronary Disease-Associated Artery/Lesion type: [place] artery [place] vs. transplanted heart: [place] heart BPH (benign prostatic hyperplasia) N40.0 Lower urinary tract symptom presence: unspecified whether lower urinary tract symptoms present Depression F32.9 Depression Type: unspecified Hypertension I10 Hypertension type: essential hypertension DVT prophylaxis Z29.9 (1) BPH (benign prostatic hyperplasia) Lower urinary tract symptom presence: unspecified whether lower urinary tract symptoms present Qualified Code(s): N40.0 - Benign prostatic hyperplasia without lower urinary tract symptoms (2) CAD (coronary artery disease) Associated angina: without angina Coronary Disease-Associated Artery/Lesion type: [place] artery [place] vs. transplanted heart: [place] heart Qualified Code(s): I25.10 - Atherosclerotic heart disease of [place] coronary artery without angina pectoris (3) Depression Depression Type: unspecified Qualified Code(s): F32.9 - Major depressive disorder, single episode, unspecified (4) Hypertension Hypertension type: essential hypertension Qualified Code(s): I10 - Essential (primary) hypertension (5) Closed fracture of left hip Encounter type: initial encounter Qualified Code(s): S72.002A - Fracture of unspecified part of neck of left femur, initial encounter for closed fracture
[2020-01-07] MEDS: MoRPHine SULFATE 2 MG/ML CARP IV PRN (16:21)
[2020-01-07] MEDS: LORazepam 1 MG/2 ML VIAL IV SCH (20:38)
[2020-01-07] MEDS: MoRPHine SULFATE 5 MG/0.25 ML UDP PO SCH (20:38)
[2020-01-08] MEDS: MoRPHine SULFATE 5 MG/0.25 ML UDP PO SCH ×3 (00:21→08:16)
[2020-01-08] MEDS: LORazepam 1 MG/2 ML VIAL IV SCH ×2 (02:20→09:09)
[2020-01-08] MEDS: MoRPHine SULFATE 2 MG/ML CARP IV PRN ×3 (02:20→08:15)
[2020-01-08] MEDS: MoRPHine SULFATE 5 MG/0.25 ML UDP PO PRN (06:18)
[2020-01-08] MEDS ORDERED: WHISKEY 1 DOSE PO SCH (09:00)
--- NOTE | 2020-01-08 10:10 | Death Pronouncement Note ---
Date of Service January 08, 2020 Pronouncement Note Admission Date Admission Date: January 01, 2020 Date and Time of Date of : 01/08/20 Time of : 09:45 PCOD Preliminary cause of : Aspiration pneumonia Contributing Factors (1) Palliative care encounter: (2) Pain: (3) Anxiety: Additional Data Attending physician: Karla Cohen MD Coding Diagnoses Palliative care encounter Z51.5 Pain R52 Anxiety F41.9
--- NOTE | 2020-01-08 10:14 | Discharge Summary ---
Date of Service January 08, 2020 Admission HPI Per Admitting Provider Aubrey Marie is an 84yo C male with history of CAD s/p CABG x 3V, HTN, HLP presenting from [facility] with left hip pain. Per report, patient fell down the stairs on 12/20/19 He has had persistent pain in his left hip. CT revealed a displaced subcapital left hip fracture. Patient with dementia at baseline. Minimally verbal and unable to provide details of history prior to arrival or participate in physical exam. No complaints offered Patient's pre-admission Covid-19 test found to be POSITIVE. Patient wearing mask during my encounter. I was wearing N95 and face shield. Principal Diagnosis Aspiration PNA, Left hip fracture, fall, COVID-19 Discharge Exam Pronounced , see pronouncement Discharge Data Allergies Allergy/AdvReac Type Severity Reaction Status Date / Time bee venom protein (honey bee) Allergy Severe ANAPHYLAXIS Verified 09/16/19 10:58 hydrocodone Allergy hallucinati Verified 09/16/19 10:58 ons Consultations 01/01/20 18:38 ED Decision to Admit Stat 01/01/20 21:18 Consult Case Management - Discharge Planning Routine Consult Orthopedic Surgery Routine 01/03/20 08:00 Consult Case Management - Discharge Planning Routine 01/06/20 08:37 Consult Case Management - Discharge Planning Routine 01/07/20 06:32 Consult Palliative Care Routine Procedures Performed Operation Date: 01/02/20 10:30 Actual Procedures p Left Bipolar Hip Hemiarthroplasty(Left) - Soham Williamson MD Ordered Studies CXR x 2 Hip/pelvis xray Hospital Course (1) Aspiration into airway: Possible aspiration pneumonitis occurred overnight on 01/03. He then had increased O2 demand after the event. CXR with dense LLL consolidation - Discussed with ; he would NOT want artificial means to be kept alive. - discontinued all abx and focus was on comfort. -was given Roxanol, Ativan, atropine as needed Appreciate Palliative Care consultation Pt peacefully at 0945 on 01/08/20 (2) Dementia: Discussed with via telephone on 01/02 and 01/05. He was actually in [facility] until 12/2019 when he fell down some steps. He was sent to [facility] for rehab. On 12/19, he fell again at [facility] and was seen in the ED. He had a skull fracture (right frontotemporal calvarial fracture), but his did not want any surgical intervention. His reports that that, he has gone downhill. - Presently non-verbal (3) Status post hip hemiarthroplasty: (4) Hypertension: Discontinued home medications on PRETZEL PACKER (5) Depression: Chronic. Stable. Discontinued home citalopram on PRETZEL PACKER (6) BPH (benign prostatic hyperplasia): Chronic. Lang placed in ER. -Have discontinued his Flomax and finasteride on PRETZEL PACKER (7) COVID-19: Patient with rapid Covid-19 antigen testing performed in the ER prior to admission and found to be POSITIVE. No report of Covid symptoms prior to arrival. - No indication for treatment with dexamethasone or remdesivir at this time as patient is not currently hypoxic (>94% on room air) (8) Hypernatremia: dehydrated from poor po intake (9) Closed fracture of left hip: Patient s/p fall on 12/19, presumably suffered fracture of left hip during that time. - S/p left bipolar left hip hemiarthroplasty with Dr. Williamson on 01/01 (10) S/P CABG (coronary artery bypass graft): (11) Post herpetic neuralgia: (12) CAD (coronary artery disease): Chronic.Patient with history of CABG. (13) Hypercholesteremia: Total Time Total Time Spent Total Time Spent (In Minutes): 20 min Total Time Includes: Examination of the Patient Discharge Plan Discharge Items Patient Disposition: Addtl Attending Provider Instructions: Orthopaedic Instructions after Hip Fracture Surgery: Please keep your wound clean and dry. Do not remove any of the ovi. Please continue daily dressing changes until your follow-up appointment. In order to reduce transportation and his exposures, ovi can be removed by nursing after 2 to 3 weeks. Our clinic can be contacted for guidance and to arrange to share clinical photos, if necessary. If there is no drainage onto the dressing for total of 24 hours, you may shower after 5 days from surgery. Allow soap and water to run over the incision, no scrubbing, and pat dry. Do not submerse (sitting in bathtub, hot tub, jacuzzi, pool, etc) the wound for at least 3 weeks. You may bear weight on your lower extremities as tolerated. Postoperative x-rays should be obtained at the orthopedic office on [address] at or around 6 weeks postsurgical. Please contact our clinic to arrange an appointment time. Coding Level of Care Code D/C Day Management <30 mins Diagnoses Aspiration into airway T17.908A Dementia F03.90 Status post hip hemiarthroplasty Z96.649 Hypertension I10 Hypertension type: essential hypertension Depression F32.9 Depression Type: unspecified BPH (benign prostatic hyperplasia) N40.0 Lower urinary tract symptom presence: unspecified whether lower urinary tract symptoms present COVID-19 U07.1 Hypernatremia E87.0 Closed fracture of left hip S72.002A Encounter type: initial encounter S/P CABG (coronary artery bypass graft) Z95.1 Post herpetic neuralgia B02.29 CAD (coronary artery disease) I25.10 Associated angina: without angina Coronary Disease-Associated Artery/Lesion type: [place] artery [place] vs. transplanted heart: [place] heart Hypercholesteremia E78.00
--- NOTE | 2020-01-08 10:16 | Death Pronouncement Note ---
Date of Service January 08, 2020 Pronouncement Note Admission Date Admission Date: January 01, 2020 Date and Time of Date of : 01/08/20 Time of : 09:45 PCOD Preliminary cause of : Aspiration pneumonia Contributing Factors (1) Aspiration into airway: (2) Dementia: (3) Status post hip hemiarthroplasty: (4) Hypertension: (5) Depression: (6) BPH (benign prostatic hyperplasia): (7) COVID-19: (8) Hypernatremia: (9) Closed fracture of left hip: (10) S/P CABG (coronary artery bypass graft): (11) Post herpetic neuralgia: (12) CAD (coronary artery disease): (13) Hypercholesteremia: (14) DVT prophylaxis: Additional Data Confirmation of : no pulse, no respirations, no heart sounds and pupils fixed and dilated Family: contacted Attending/PCP notified?: Yes Attending physician: Karla Cohen MD Was code activated?: No Autopsy requested?: No budget examiner notified?: Yes Organ bank notified?: No Coding Level of Care Code None Diagnoses Aspiration into airway T17.908A Dementia F03.90 Status post hip hemiarthroplasty Z96.649 Hypertension I10 Hypertension type: essential hypertension Depression F32.9 Depression Type: unspecified BPH (benign prostatic hyperplasia) N40.0 Lower urinary tract symptom presence: unspecified whether lower urinary tract symptoms present COVID-19 U07.1 Hypernatremia E87.0 Closed fracture of left hip S72.002A Encounter type: initial encounter S/P CABG (coronary artery bypass graft) Z95.1 Post herpetic neuralgia B02.29 CAD (coronary artery disease) I25.10 Associated angina: without angina Coronary Disease-Associated Artery/Lesion type: [place] artery [place] vs. transplanted heart: [place] heart Hypercholesteremia E78.00 DVT prophylaxis Z29.9
== END 2020-01-08 11:36 | disposition expired | DRG 521 ==
LOC: ED 18:09 → SUATTDRO 19:55 → 2E 19:55 → 3E 01-06 22:13